=== PATIENT | male | born 1955 | race African-American/Black ===

== ENCOUNTER 2016-07-26 06:21 | Inpatient (IN) ==
[2016-07-26] MEDS ORDERED: hydrALAZINE 20 MG/1 ML VIAL IV STA (06:37)
[2016-07-26] MEDS ORDERED: LABETALOL 100 MG/20 ML VIAL IV STA (06:37)
[2016-07-26] MEDS ORDERED: ALBUTEROL 2.5 MG/3 ML NEB RESP TX STA (06:39)
[2016-07-26] MEDS ORDERED: LABETALOL 20 MG/4 ML SYRINGE IV ONE (06:42)
[2016-07-26] MEDS ORDERED: hydrALAZINE 20 MG/1 ML VIAL ONE (06:42)
[2016-07-26 06:44] LABS: Basophils # 0.1 10*3/uL (0.0-0.2); Basophils % 1.3 % (0.0-0.8); Eosinophils # 0.1 10*3/uL (0.0-0.87); Eosinophils % 1.5 % (0.00-10.9); Hematocrit 39.8 VOL% (42.0-52.0); Hemoglobin 13.5 GM/DL (14.0-18.0); Immature Granulocytes % 0.2 %; Immature Granulocytes Absolute 0.01 #; Lymphocytes # 2.4 10*3/uL (1.4-4.0); Lymphocytes % 51.6 % (21.2-54.2); Mean Corpuscular HGB Conc 33.9 GM/DL (32-36); Mean Corpuscular Hemoglobin 32 PG (27-34); Mean Platelet Volume 10.1 FL (9.6-12.0); Monocytes # 0.3 10*3/uL (0.11-0.8); Monocytes % 5.4 % (1.7-12.7); Neutrophils # 1.8 10*3/uL (1.4-7.4); Platelet Count 222 T/CUMM (130-400); Red Blood Count 4.28 MC/CUMM (3.8-5.5); Red Cell Distribution Width 12.1 % (9.3-17.3); White Blood Count 4.6 T/CUMM (4-12)
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
[2016-07-26 06:58] LABS: Albumin 3.3 G/DL (3.4-5.0); Bilirubin,Total 1.7 MG/DL (0.2-1.0); Calcium 8.2 MG/DL (8.5-10.1); Osmolality,Calculated 287.8 MOS/KG (273-304); Total Protein 6.5 G/DL (6.4-8.3)
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
[2016-07-26 08:47] LABS: Apearance,Urine CLEAR (Clear); Bilirubin,Urine Negative (Negative); Blood, Urine Negative (Negative); Glucose,Urine (UA) Negative (Negative); Ketones,Urine Negative (Negative); Mucus,Urine Occasional /LPF (Occasional); Nitrite,Urine Negative (Negative); Protein,Urine 30 MG/DL; RBC,Urine 2 /HPF (0-4); Squamous Epithelial Cell,Urine Occasional /HPF (0-10); Urine Color Yellow (Yellow); Urine Specific Gravity 1.015 (1.001-1.035); WBC,Urine 3 /HPF (0-6)
[2016-07-26 08:52] LABS: Barbiturates Screen,Urine Negative (Negative); Benzodiazepines Screen,Urine Negative (Negative); Cannabinoid Screen,Urine Positive (Negative); Opiate Screen,Urine Negative (Negative); Phencyclidine Screen,Urine Negative (Negative)
--- NOTE | 2016-07-26 09:07 | EKG Report ---
Stationary ECG Study [facility] ER Test Date: 07/26/2016 6:27:02 AM Pat Name: EBER ARREOLA Department: Room: Gender: M [employer]: : 1955 Requested by: Nikunj Villafana Order Number: [id number] Reading MD: NASRIN ECKERT Intervals [place] Rate: 117 P: 75 DC: 139 QRS: -74 QRSD: 163 T: 90 QT: 373 QTc: 443 Interpretive Statements SINUS TACHYCARDIA LEFT ATRIAL ENLARGEMENT LEFT AXIS DEVIATION LEFT BUNDLE BRANCH BLOCK Electronically Signed On 07-27-16 06:59:13 FUNERAL HOME MAKEUP ARTIST by NASRIN ECKERT [email or web address]
[2016-07-26 10:14] LABS: ABG Base Excess -0.8 MMOL/L (-2.5-2.5); ABG HCO3 23.6 MMOL/L (20-26); ABG Oxygen Saturation 90.4 % (95-100); ABG PCO2 32.1 MM HG (35-48); ABG PO2 57.4 MM HG (80-95); ABG TCO2 19.6 MMOL/L (23-27)
[2016-07-26] MEDS ORDERED: FUROSEMIDE 40 MG/4 ML VIAL IV STA (10:25)
[2016-07-26] MEDS ORDERED: FUROSEMIDE 100 MG/10 ML VIAL ONE (10:27)
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
[2016-07-26] MEDS ORDERED: ACETAMINOPHEN 325 MG TABLET PO PRN (15:32)
[2016-07-26] MEDS ORDERED: ONDANSETRON 4 MG/2 ML VIAL IV PRN (15:32)
[2016-07-26] MEDS: PANTOPRAZOLE 40 MG TABLET PO SCH (16:34)
[2016-07-26] MEDS: ASPIRIN EC 81 MG TABLET PO SCH (16:34)
[2016-07-26] MEDS: FUROSEMIDE 40 MG/4 ML VIAL IV SCH (16:34)
[2016-07-26] MEDS: MULTIVITAMIN (CENTRUM) TABLET PO SCH (16:34)
[2016-07-26] MEDS: CARVEDILOL 3.125 MG TABLET PO SCH ×2 (16:34→20:47)
[2016-07-26] MEDS: LISINOPRIL 10 MG TABLET PO SCH (16:34)
[2016-07-26] MEDS: ENOXAPARIN 40 MG/0.4 ML SYRINGE SUBCUT SCH (20:47)
--- NOTE | 2016-07-26 21:23 | ECHO Report ---
Andrea Mora Exam Date: 07/26/2016 10:49 Referring Physician: Technologist: Marilee BENNETT Age: 61 Ht (in): Wt (lb): Gender: M Exam Location: [facility] Echo Indications: SOB, Dyspnea, Cocaine abuse BP: / HR: Rhythm: Sinus Technical Quality: Good IMPRESSIONS 1. Left ventricle is dilated with global hypokinesis and ejection fraction less than 20%. There is mild concentric left ventricular hypertrophy. 2. Severely dilated left atrium. 3. Right-sided chambers are normal size. 4. Mild aortic valves sclerosis but functionally normal. 5. Mildly thickened mitral valve with moderate regurgitation. MEASUREMENTS (Male / Female) Normal Values 2D ECHO LV Diastolic Diameter PLAX 6.0 cm 4.2 - 5.9 / 3.9 - 5.3 cm LV Systolic Diameter PLAX 5.6 cm LV Fractional Shortening PLAX 7.3 % IVS Diastolic Thickness 1.3 cm 0.6 - 1.0 / 0.6 - 0.9 cm LVPW Diastolic Thickness 1.1 cm 0.6 - 1.0 / 0.6 - 0.9 cm RV Internal Dim ED PLAX 2.6 cm Aortic Root Diameter 2.6 cm LA Systolic Diameter LX 5.3 cm 3.0 - 4.0 / 2.7 - 3.8 cm DOPPLER TR Peak Velocity 337.0 cm/s TR Peak Gradient 45.4 mmHg FINDINGS Left Ventricle The left ventricle is dilated with global hypokinesis and ejection fraction of less than 20%. No specific segmental wall motion abnormalities are noted. There is some mild concentric left ventricular hypertrophy. . Right Ventricle Right ventricle is probably normal size. Right Atrium Left atrium is probably normal size. Left Atrium Severely increased left atrial diameter. Mitral Valve Mildly thickened mitral valve. Moderate mitral valve regurgitation. Aortic Valve Aortic valve sclerosis without stenosis or regurgitation. Tricuspid Valve Morphologically normal tricuspid valve. Trace to mild tricuspid valve regurgitation. Tricuspid regurgitation velocities suggest a peak right- sided pressures of 50-55 mmHg. Pulmonic Valve Morphologically normal pulmonic valve. Pericardium No pericardial effusion. Aorta Normal size aortic root and proximal ascending aorta. Jv Oconnor MD (Electronically Signed) Final Date: 26 July 2016 21:22
[2016-07-27 04:00] LABS: Calcium 8.6 MG/DL (8.5-10.1); Osmolality,Calculated 282.5 MOS/KG (273-304); Potassium 3.4 MMOL/L (3.5-5.1); Thyroid Stimulating Hormone 1.92 uIU/ml (0.358-3.74)
[2016-07-27] MEDS: MULTIVITAMIN (CENTRUM) TABLET PO SCH (08:25)
[2016-07-27] MEDS: PANTOPRAZOLE 40 MG TABLET PO SCH (08:25)
[2016-07-27] MEDS: LISINOPRIL 10 MG TABLET PO SCH (08:25)
[2016-07-27] MEDS: ASPIRIN EC 81 MG TABLET PO SCH (08:25)
[2016-07-27] MEDS: CARVEDILOL 3.125 MG TABLET PO SCH ×2 (08:25→21:13)
[2016-07-27] MEDS: FUROSEMIDE 40 MG/4 ML VIAL IV SCH (08:25)
--- NOTE | 2016-07-27 15:41 | Hospitalist Progress Note ---
Assessment and Plan - Time spent with patient Time spent with patient: Less than 30 minutes (1) SOB (shortness of breath) Status: Resolved Assessment and plan: Acute shortness of breath due to mild acute CHF exacerbation due to medical noncompliance. Admit, start Lasix, monitor O2 sats. Further recommendations per Dr. Cano 07/27/2016 shortness of breath much improved. Change Lasix from IV to p.o. and reduce amount. Patient should be good to go for discharge in the morning. Current Visit: No (2) Abnormal EKG Status: Chronic Assessment and plan: We will compare EKG to his previous one done in May. If any changes, may need to consult Dr. Otero since she has seen him before. Recommendations to follow per Dr. Cano Current Visit: No (3) Acute CHF (congestive heart failure) Status: Acute Assessment and plan: Acute congestive heart failure due to medical noncompliance and drug use. Patient received an echo in the ED with results pending. His last echo was EF of 15-20%. Patient will be given Lasix, blood pressure medicines restarted and further recommendations per Dr. Cano. 07/27/2016 echo results show left ventricle dilated with global hypokinesis and ejection fraction of less than 20% with mild concentric left ventricular hypertrophy, severely dilated left atrium, normal right side, mild aortic valve sclerosis, thickened mitral valve with moderate regurg. Discussed physical results with patient and emphasized medicine compliance and drug and alcohol cessation. Current Visit: No (4) Essential hypertension Status: Acute Assessment and plan: Restart home meds previously given and not taken. Will adjust accordingly. Further recommendations per Dr. Cano. 07/27/2016 blood pressure under good control with current meds given. Current Visit: Yes (5) Medical non-compliance Status: Acute Assessment and plan: Patient underwent extensive lifestyle change talks by Dr. Araiza and Dr. Otero previous admission. Will continue to do this on this admission. 07/27/2016 I had discussion with patient along with Dr. Cano emphasizing his medical compliance and condition of his heart. Highly recommended him discontinuing his cocaine, alcohol, smoking habits. Patient does verbalize understanding and he understands that it is up to him now. Current Visit: Yes (6) Cocaine abuse Status: Acute Assessment and plan: Patient will undergo lifestyle change talks as he did his previous admission. 07/27/2016 medical compliance and cocaine cessation were discussed with patient. Current Visit: Yes Hospitalist: Subjective Interval history: Patient feels much better today. Shortness of breath has improved and he is ambulating in the room. He states he is urinating quite a bit. He voiced that he does not want to go back to rehab that he wants to try to stop smoking cigarettes and weed. He can stop the cocaine and alcohol on his own. He agrees that he needs to take his medicines as instructed. Exam - Constitutional Vitals: Period Temp Pulse Resp BP Sys/Syed Pulse Ox Last 24 Hr 97.5 F-98.0 F 61-83 16-20 115-131/73-88 98-100 Exam: 61-year-old -Indonesian male, no acute distress, alert and oriented Chest clear CV regular rate and rhythm Abdomen soft and nontender Extremities with no edema Results - Labs CBC & BMP: 07/26/16 06:33 07/27/16 02:55 Lab Results: I have reviewed the past 24 hour labs
[2016-07-27] MEDS: POTASSIUM CHLORIDE 20 MEQ TABLET PO SCH ×2 (15:59→21:13)
[2016-07-27] MEDS: FUROSEMIDE 80 MG TABLET PO SCH (15:59)
--- NOTE | 2016-07-27 16:01 | Physician Query Form ---
CLICK EDIT DOCUMENT TO SELECT QUERY ANSWER --> OK --> SIGN Mary Catalan RN Clinical All Source Analyst W) [phone] (f) [phone] [email or web address] PROVIDERS: Make your selection(s) from the choices in EACH section by typing an "x" and enter comments in the comment section. Please use your independent medical judgment in providing your response. This request does not imply that any particular answer is desired or expected. CLINICAL INDICATORS: (Providers should not edit this section) Based on documentation of "acute CHF exacerbation", [id number], Echo showed EF of 20%, treated with IV Lasix. Please provide further specificity regarding CHF. TYPE: ( ) Systolic ( ) Diastolic (x ) Combined Systolic/Diastolic ( ) Other, please specify: ( ) Clinically unable to determine ( ) The patient does NOT have CHF COMMENTS: Use of terms such as suspected, likely, or probable (associated with a specific diagnosis that is being evaluated, monitored, or treated as if it exists) are acceptable and can be restated in the discharge summary if not ruled out. [facility]
[2016-07-27] MEDS: ENOXAPARIN 40 MG/0.4 ML SYRINGE SUBCUT SCH (21:18)
[2016-07-28] MEDS ORDERED: LORazepam 2 MG/1 ML VIAL ONE ×3 (00:35→01:06)
[2016-07-28] MEDS: LORazepam 2 MG/1 ML VIAL IV PRN ×4 (00:38→01:18)
[2016-07-28 00:46] LABS: ABG Base Excess -13.2 MMOL/L (-2.5-2.5); ABG HCO3 14.1 MMOL/L (20-26); ABG Oxygen Saturation 72.2 % (95-100); ABG TCO2 24.4 MMOL/L (23-27)
[2016-07-28 00:51] LABS: ABG PH 6.953 (7.35-7.45)
[2016-07-28] MEDS ORDERED: LORazepam 2 MG/1 ML VIAL IM ONE (01:05)
[2016-07-28] MEDS ORDERED: ALBUTEROL 2.5 MG/3 ML NEB RESP TX ONE (01:08)
[2016-07-28] MEDS ORDERED: PHENYTOIN INJ 1,000 MG in SODIUM CHLORIDE 0.9% 100 ML IV ONE (01:11)
[2016-07-28] MEDS ORDERED: SODIUM BICARBONATE 50 MEQ/50 ML SYRINGE IV ONE ×2 (01:14→01:36)
[2016-07-28] MEDS: SODIUM CHLORIDE 0.9% 1,000 ML IV SCH ×4 (01:15→18:31)
[2016-07-28] MEDS ORDERED: ETOMIDATE 20 MG/10 ML VIAL IV ONE ×2 (01:20→01:36)
[2016-07-28] MEDS ORDERED: SUCCINYLCHOLINE 200 MG/10 ML VIAL ONE (01:21)
[2016-07-28] MEDS ORDERED: PROPOFOL 1,000 MG/100 ML BOTTLE IV ONE (01:24)
[2016-07-28] MEDS: PROPOFOL 1,000 MG/100 ML BOTTLE IV SCH ×2 (01:30→23:45)
[2016-07-28] MEDS ORDERED: SUCCINYLCHOLINE 200 MG/10 ML VIAL IV ONE (01:36)
[2016-07-28] MEDS ORDERED: LORazepam 2 MG/1 ML VIAL IV ONE (01:48)
--- NOTE | 2016-07-28 01:52 | Event Note ---
Team alert was called by patient's nurse as she noted patient with altered mental status and shaking in bed for less than a minute. Patient was lethargic but nonconversant his pants appears wet at the groin area. Blood pressure 120s over 70s, heart rate low 90s, respiratory rate about 20, SPO2 low 80's. She was placed on oxygen therapy and was given 2 mg Ativan IV stat after he had another witnessed for about 30 seconds tonic-clonic. Stat labs were ordered including ABG and BMP and EKG and chest x-ray and patient was transferred to the medical ICU. O/E patient disoriented, lung with expiratory coarse breath sound, Heart RRR, abdomen soft nondistended, extremity no edema or cyanosis, neck no JVD, pants wet w urine at ester area, no clear tongue bite. Shortly after arrival and felt to ICU patient starting to have another seizure and ABG results came back with a pH of 6.9 and CO2 of about 112. Patient was intubated by ER physician and was given Ativan and fosphenytoin accordingly and was started on mechanical ventilation. ABG and chest x-ray and other labs to follow.
[2016-07-28] MEDS: POTASSIUM CHLORIDE 20 MEQ TABLET PO SCH (03:10)
[2016-07-28 03:21] LABS: Apearance,Urine Slightly Hazy (Clear); Bilirubin,Urine Negative (Negative); Blood, Urine Moderate mg/dL (Negative); Glucose,Urine (UA) Negative (Negative); Hyaline Casts,Urine 5 /LPF (0-3); Ketones,Urine Negative (Negative); Mucus,Urine Occasional /LPF (Occasional); Nitrite,Urine Negative (Negative); Protein,Urine 100 MG/DL; RBC,Urine 4 /HPF (0-4); Squamous Epithelial Cell,Urine Occasional /HPF (0-10); Urine Color Yellow (Yellow); Urine Urobilinogen < 2.0 EU/DL (0.2-1.0); WBC,Urine 3 /HPF (0-6)
[2016-07-28 03:34] LABS: Calcium 9.3 MG/DL (8.5-10.1); Osmolality,Calculated 286.5 MOS/KG (273-304); Potassium 4.2 MMOL/L (3.5-5.1)
[2016-07-28 03:40] LABS: Troponin I Only 0.176 NG/ML (0.00-0.045)
[2016-07-28 04:27] LABS: ABG Base Excess 0.9 MMOL/L (-2.5-2.5); ABG Oxygen Saturation 90.8 % (95-100); ABG PCO2 46.8 MM HG (35-48); ABG PH 7.367 (7.35-7.45); ABG PO2 65.3 MM HG (80-95); ABG TCO2 23.2 MMOL/L (23-27)
[2016-07-28 05:30] LABS: Calcium 8.5 MG/DL (8.5-10.1); Magnesium 2.3 MG/DL (1.8-2.4); Osmolality,Calculated 286.1 MOS/KG (273-304); Potassium 4.9 MMOL/L (3.5-5.1)
--- NOTE | 2016-07-28 06:41 | EKG Report ---
Stationary ECG Study [facility] Test Date: 07/28/2016 12:39:13 AM Pat Name: EBER ARREOLA Department: Room: 123 Gender: M Automatic St[employer]: Rashid arnold ss : 1955 Requested by: Arcenio Cano Order Number: [id number] Reading MD: DINO DE GUZMAN Intervals [place] Rate: 93 P: 75 MI: 160 QRS: -79 QRSD: 170 T: 93 QT: 397 QTc: 448 Interpretive Statements SINUS RHYTHM RIGHT ATRIAL ENLARGEMENT LEFT ATRIAL ENLARGEMENT ABNORMAL LEFT AXIS DEVIATION LEFT BUNDLE BRANCH BLOCK Electronically Signed On 07-28-16 17:37:07 [employer]AL [employer] SCIENTIST by DINO DE GUZMAN [id number]
--- NOTE | 2016-07-28 06:56 | CT Report ---
History: Seizure. Altered mental status Date: 07/28/2016 Study: CT head without contrast Comparison exam: No previous head CT available The study was also reviewed by [facility]. The CT exam was performed using one or more of the following dose reduction techniques: Automated exposure control and adjustment of the mA and/or kV according to patient size. Transaxial CT sections were obtained through the head without IV contrast. Total DLP measures 1012.1 mGy*cm. The ventricles are midline in position without evidence of hydrocephalus. There is mild cerebral atrophy. There is no mass or parenchymal hemorrhage. There is a wedge-shaped area of chronic infarction measuring at least 15 mm in the right parieto-occipital border zone area. There is no gross CT evidence of acute cortical stroke. There is a small amount of ill-defined low density in the periventricular white matter without mass effect compatible with changes of small vessel disease. There is no extra-axial hematoma. There is no acute abnormality of the calvarium. The partially visualized paranasal sinuses and mastoid air cells are clear. Impression: No acute intracranial process. Chronic ischemia right parieto-occipital area. Mild periventricular small vessel disease PROCEDURE INTERPRETED AT [facility] DEPARTMENT OF RADIOLOGY Final Report Signed by: Dr. Joelle Weldon
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
[2016-07-28] MEDS ORDERED: SODIUM CHLORIDE 0.9% 250 ML IV ONE (09:08)
[2016-07-28] MEDS: ASPIRIN EC 81 MG TABLET PO SCH (09:19)
[2016-07-28] MEDS: MULTIVITAMIN (CENTRUM) TABLET PO SCH (09:19)
[2016-07-28] MEDS: CARVEDILOL 3.125 MG TABLET PO SCH ×2 (09:20→20:41)
[2016-07-28] MEDS: LISINOPRIL 10 MG TABLET PO SCH (09:20)
[2016-07-28] MEDS: FUROSEMIDE 80 MG TABLET PO SCH (09:42)
[2016-07-28] MEDS: PANTOPRAZOLE 40 MG VIAL IV SCH (11:08)
[2016-07-28] MEDS ORDERED: SODIUM CHLORIDE 0.9% 500 ML IV ONE (12:24)
[2016-07-28] MEDS ORDERED: PHENYTOIN 100 MG/2 ML VIAL IV SCH (12:30)
[2016-07-28] MEDS: PHENYLEPHRINE DRIP 40 MG/250 ML PREMIX IV SCH ×2 (12:30→20:57)
[2016-07-28] MEDS: PANTOPRAZOLE 40 MG TABLET PO SCH (14:46)
--- NOTE | 2016-07-28 16:17 | Hospitalist Progress Note ---
Assessment and Plan - Time spent with patient Time spent with patient: Less than 30 minutes (1) SOB (shortness of breath) Status: Resolved Assessment and plan: Acute shortness of breath due to mild acute CHF exacerbation due to medical noncompliance. Admit, start Lasix, monitor O2 sats. Further recommendations per Dr. Cano 07/27/2016 shortness of breath much improved. Change Lasix from IV to p.o. and reduce amount. Patient should be good to go for discharge in the morning. 07/28/2016 patient is now sedated on the vent Current Visit: No (2) Abnormal EKG Status: Chronic Assessment and plan: We will compare EKG to his previous one done in May. If any changes, may need to consult Dr. Otero since she has seen him before. Recommendations to follow per Dr. Cano Current Visit: No (3) Acute CHF (congestive heart failure) Status: Acute Assessment and plan: Acute congestive heart failure due to medical noncompliance and drug use. Patient received an echo in the ED with results pending. His last echo was EF of 15-20%. Patient will be given Lasix, blood pressure medicines restarted and further recommendations per Dr. Cano. 07/27/2016 echo results show left ventricle dilated with global hypokinesis and ejection fraction of less than 20% with mild concentric left ventricular hypertrophy, severely dilated left atrium, normal right side, mild aortic valve sclerosis, thickened mitral valve with moderate regurg. Discussed physical results with patient and emphasized medicine compliance and drug and alcohol cessation. Current Visit: No (4) Essential hypertension Status: Acute Assessment and plan: Restart home meds previously given and not taken. Will adjust accordingly. Further recommendations per Dr. Cano. 07/27/2016 blood pressure under good control with current meds given. 07/28/2016 patient is now hypotensive on the vent. He is on karley-titrated for systolic less than 90 Current Visit: Yes (5) Medical non-compliance Status: Acute Assessment and plan: Patient underwent extensive lifestyle change talks by Dr. Araiza and Dr. Otero previous admission. Will continue to do this on this admission. 07/27/2016 I had discussion with patient along with Dr. Cano emphasizing his medical compliance and condition of his heart. Highly recommended him discontinuing his cocaine, alcohol, smoking habits. Patient does verbalize understanding and he understands that it is up to him now. Current Visit: Yes (6) Cocaine abuse Status: Acute Assessment and plan: Patient will undergo lifestyle change talks as he did his previous admission. 07/27/2016 medical compliance and cocaine cessation were discussed with patient. Current Visit: Yes Hospitalist: Subjective Interval history: Event notes reviewed from last night. Patient had seizure yesterday evening and transferred to ICU. He was placed on the ventilator and Dilantin and to prevent started. Patient is sedated on the vent now. He is having periodic twitching. Patient is afebrile with low urinary output and elevated creatinine to 2.3. His lactic acid is up to 4.3 with a bump in his troponin of 0.176. His ammonia is high at 90. Exam - Constitutional Vitals: Period Temp Pulse Resp BP Sys/Syed Pulse Ox Last 24 Hr 96.9 F-100.1 F 51-117 12-26 67-138/50-98 85-100 Exam: 61-year-old -[place] male, sedated on the vent Chest is clear CV regular rate and rhythm Abdomen soft Extremities no edema Results - Labs CBC & BMP: 07/26/16 06:33 07/28/16 04:25 Lab Results: I have reviewed the past 24 hour labs
[2016-07-28] MEDS: ENOXAPARIN 40 MG/0.4 ML SYRINGE SUBCUT SCH (20:50)
[2016-07-29] MEDS: SODIUM CHLORIDE 0.9% 1,000 ML IV SCH ×2 (04:30→18:30)
[2016-07-29] MEDS: LORazepam 2 MG/1 ML VIAL IV PRN ×4 (06:12→15:12)
[2016-07-29] MEDS: PROPOFOL 1,000 MG/100 ML BOTTLE IV SCH ×2 (07:46→20:00)
[2016-07-29] MEDS: PHENYLEPHRINE DRIP 40 MG/250 ML PREMIX IV SCH ×2 (07:47→16:23)
[2016-07-29 08:10] LABS: Basophils # 0.1 10*3/uL (0.0-0.2); Basophils % 0.6 % (0.0-0.8); Hematocrit 40.9 VOL% (42.0-52.0); Hemoglobin 13.2 GM/DL (14.0-18.0); Immature Granulocytes % 0.4 %; Immature Granulocytes Absolute 0.03 #; Lymphocytes # 1.7 10*3/uL (1.4-4.0); Lymphocytes % 20.9 % (21.2-54.2); Mean Corpuscular HGB Conc 32.3 GM/DL (32-36); Mean Corpuscular Hemoglobin 31 PG (27-34); Mean Platelet Volume 10.2 FL (9.6-12.0); Monocytes # 0.9 10*3/uL (0.11-0.8); Monocytes % 11.3 % (1.7-12.7); Neutrophils # 5.4 10*3/uL (1.4-7.4); Neutrophils % 66.8 % (38.7-73.9); Platelet Count 208 T/CUMM (130-400); Red Blood Count 4.26 MC/CUMM (3.8-5.5); White Blood Count 8.1 T/CUMM (4-12)
[2016-07-29 08:29] LABS: ABG Base Excess -1.4 MMOL/L (-2.5-2.5); ABG HCO3 23.3 MMOL/L (20-26); ABG Oxygen Saturation 99.7 % (95-100); ABG PCO2 31.8 MM HG (35-48); ABG PH 7.444 (7.35-7.45); ABG TCO2 18.9 MMOL/L (23-27); Pt O2 Delivery Device Ventilator
[2016-07-29 08:31] LABS: Band Neutrophils 20 % (0-10); Hypochromasia 1+; Lymphocytes 19 % (20-55); Platelet Estimate Adequate; Segmented Neutrophils 52 % (50-85); Total Cells Counted 100
[2016-07-29 08:48] LABS: Albumin 2.7 G/DL (3.4-5.0); Bilirubin,Total 2.4 MG/DL (0.2-1.0); Calcium 7.9 MG/DL (8.5-10.1); Osmolality,Calculated 294.4 MOS/KG (273-304); Potassium 4.2 MMOL/L (3.5-5.1)
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
[2016-07-29] MEDS: PANTOPRAZOLE 40 MG VIAL IV SCH (09:07)
[2016-07-29] MEDS: ASPIRIN EC 81 MG TABLET PO SCH (09:07)
[2016-07-29] MEDS: MULTIVITAMIN (CENTRUM) TABLET PO SCH (09:07)
[2016-07-29] MEDS: CARVEDILOL 3.125 MG TABLET PO SCH ×2 (09:08→21:04)
[2016-07-29] MEDS: LISINOPRIL 10 MG TABLET PO SCH (09:08)
--- NOTE | 2016-07-29 09:08 | Neurology Progress Note ---
Neurology - PN : Subjective Interval history: Patient seems to be doing about the same. No more seizures reported. He is on vent unresponsive. Exam (Progress Note) - Constitutional Vitals: Period Temp Pulse Resp BP Sys/Syed Pulse Ox Last 24 Hr 97.6 F-99.8 F 72-107 12-23 68-133/51-93 98-100 Exam: GENERAL: Patient is in no acute distress. NECK: Neck is supple. There is no JVD. No carotid bruits present. No thyroid masses. CVS: First and second heart sounds are normal. There is no S3 present. Regular rate and rhythm. RESPIRATORY: Lungs are clear to auscultation without any rales or rhonchi. ABDOMEN: Soft and non-tender. Bowel sounds are present. There is no hepatosplenomegaly. EXT: There is no palpable edema. Peripheral pulses are present. Skin: No rashes Central Nervous system: General: On vent Speech: Dated Comprehension: On vent Facial expressions: Normal Cranial Nerves: Pupils are sluggish but reactive. Doll's head I rooms are positive. No facial asymmetry is seen Motor: Bulk and Tone is normal. Strength cannot be assessed Sensory: Cannot be assessed Reflexes: 1+ and symmetrical Cerebellar function: Cannot be assessed Toes: Equivocal Gait: Cannot be assessed Results - Labs CBC & BMP: 07/29/16 07:57 07/29/16 07:57 Assessment and Plan (1) New onset seizure Status: Acute Assessment and plan: Continue Keppra for now Continue supportive management Current Visit: Yes
--- NOTE | 2016-07-29 09:39 | Hospitalist Progress Note ---
Assessment and Plan - Time spent with patient Time spent with patient: Less than 30 minutes (1) SOB (shortness of breath) Status: Resolved Assessment and plan: Acute shortness of breath due to mild acute CHF exacerbation due to medical noncompliance. Admit, start Lasix, monitor O2 sats. Further recommendations per Dr. Cano 07/27/2016 shortness of breath much improved. Change Lasix from IV to p.o. and reduce amount. Patient should be good to go for discharge in the morning. 07/28/2016 patient is now sedated on the vent 07/29/2016 patient is still sedated on the vent Current Visit: No (2) Abnormal EKG Status: Chronic Assessment and plan: We will compare EKG to his previous one done in May. If any changes, may need to consult Dr. Otero since she has seen him before. Recommendations to follow per Dr. Cano Current Visit: No (3) Acute CHF (congestive heart failure) Status: Acute Assessment and plan: Acute congestive heart failure due to medical noncompliance and drug use. Patient received an echo in the ED with results pending. His last echo was EF of 15-20%. Patient will be given Lasix, blood pressure medicines restarted and further recommendations per Dr. Cano. 07/27/2016 echo results show left ventricle dilated with global hypokinesis and ejection fraction of less than 20% with mild concentric left ventricular hypertrophy, severely dilated left atrium, normal right side, mild aortic valve sclerosis, thickened mitral valve with moderate regurg. Discussed physical results with patient and emphasized medicine compliance and drug and alcohol cessation. Current Visit: No (4) Essential hypertension Status: Acute Assessment and plan: Restart home meds previously given and not taken. Will adjust accordingly. Further recommendations per Dr. Cano. 07/27/2016 blood pressure under good control with current meds given. 07/28/2016 patient is now hypotensive on the vent. He is on karley-titrated for systolic less than 90 07/29/2016 patient is continued to be hypotensive requiring karley-titration on the vent Current Visit: Yes (5) Medical non-compliance Status: Acute Assessment and plan: Patient underwent extensive lifestyle change talks by Dr. Araiza and Dr. Otero previous admission. Will continue to do this on this admission. 07/27/2016 I had discussion with patient along with Dr. Cano emphasizing his medical compliance and condition of his heart. Highly recommended him discontinuing his cocaine, alcohol, smoking habits. Patient does verbalize understanding and he understands that it is up to him now. Current Visit: Yes (6) Cocaine abuse Status: Acute Assessment and plan: Patient will undergo lifestyle change talks as he did his previous admission. 07/27/2016 medical compliance and cocaine cessation were discussed with patient. Current Visit: Yes (7) Acute hypernatremia Status: Acute Assessment and plan: Switch patient's IV fluids to half-normal saline. Current Visit: Yes Hospitalist: Subjective Interval history: Patient sedated on the vent will only respond to deep pain. Patient is running a low-grade fever, blood pressure requiring karley-, urine output is low with creatinine down to 1.6. He is hyernatremic today. He has been seen by Dr. George from neurology who recommends stopping the Dilantin and continuing the Keppra. An EEG has been ordered and is pending. Exam - Constitutional Vitals: Period Temp Pulse Resp BP Sys/Syed Pulse Ox Last 24 Hr 97.6 F-99.8 F 72-107 12-23 68-133/51-93 98-100 Exam: 61-year-old -[place] male, sedated on the vent Chest with few rhonchi at the bases CV regular rate and rhythm Abdomen soft Extremities no edema Results - Labs CBC & BMP: 07/29/16 07:57 07/29/16 07:57 Lab Results: I have reviewed the past 24 hour labs
[2016-07-29] MEDS: SODIUM CHLORIDE 0.45% 1,000 ML IV SCH ×2 (11:12→19:30)
[2016-07-29 17:05] LABS: Pt O2 Delivery Device Ventilator
[2016-07-29 17:11] LABS: ABG Base Excess -1.8 MMOL/L (-2.5-2.5); ABG HCO3 22.8 MMOL/L (20-26); ABG Oxygen Saturation 91.6 % (95-100); ABG PCO2 37.2 MM HG (35-48); ABG PH 7.393 (7.35-7.45); ABG PO2 63.5 MM HG (80-95); ABG TCO2 19.8 MMOL/L (23-27)
[2016-07-29] MEDS: ENOXAPARIN 40 MG/0.4 ML SYRINGE SUBCUT SCH (21:17)
[2016-07-30] MEDS: LORazepam 2 MG/1 ML VIAL IV PRN ×2 (00:03→04:34)
[2016-07-30] MEDS: PHENYLEPHRINE DRIP 40 MG/250 ML PREMIX IV SCH ×2 (01:55→20:55)
[2016-07-30 04:18] LABS: ABG Base Excess -3.3 MMOL/L (-2.5-2.5); ABG HCO3 20.4 MMOL/L (20-26); ABG Oxygen Saturation 98.9 % (95-100); ABG PCO2 32.7 MM HG (35-48); ABG PH 7.412 (7.35-7.45); ABG PO2 138.1 MM HG (80-95); ABG TCO2 21.4 MMOL/L (23-27); Pt O2 Delivery Device Ventilator
[2016-07-30] MEDS: SODIUM CHLORIDE 0.45% 1,000 ML IV SCH ×3 (04:35→20:56)
[2016-07-30] MEDS: PROPOFOL 1,000 MG/100 ML BOTTLE IV SCH (06:36)
[2016-07-30 07:16] LABS: Basophils % 0.5 % (0.0-0.8); Eosinophils % 0.1 % (0.00-10.9); Hematocrit 40.2 VOL% (42.0-52.0); Hemoglobin 13.1 GM/DL (14.0-18.0); Immature Granulocytes % 0.8 %; Immature Granulocytes Absolute 0.06 #; Lymphocytes # 1.6 10*3/uL (1.4-4.0); Lymphocytes % 20.8 % (21.2-54.2); Mean Corpuscular HGB Conc 32.6 GM/DL (32-36); Mean Corpuscular Hemoglobin 32 PG (27-34); Mean Corpuscular Volume 97.6 FL (87-102); Mean Platelet Volume 10.4 FL (9.6-12.0); Monocytes # 0.8 10*3/uL (0.11-0.8); Monocytes % 9.8 % (1.7-12.7); Neutrophils # 5.2 10*3/uL (1.4-7.4); Platelet Count 204 T/CUMM (130-400); Red Blood Count 4.12 MC/CUMM (3.8-5.5); Red Cell Distribution Width 12.8 % (9.3-17.3); White Blood Count 7.7 T/CUMM (4-12)
[2016-07-30 07:37] LABS: Band Neutrophils 2 % (0-10); Lymphocytes 17 % (20-55); Metamyelocytes 1 %; Segmented Neutrophils 72 % (50-85); Total Cells Counted 100
[2016-07-30 07:38] LABS: Anisocytosis Slight; Macrocytosis Slight; Platelet Estimate Normal
[2016-07-30 07:47] LABS: Calcium 8.1 MG/DL (8.5-10.1); Magnesium 1.8 MG/DL (1.8-2.4); Potassium 4.2 MMOL/L (3.5-5.1)
[2016-07-30] MEDS ORDERED: LORazepam 2 MG/1 ML VIAL IV PRN (07:48)
[2016-07-30] MEDS: PANTOPRAZOLE 40 MG VIAL IV SCH (08:15)
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
[2016-07-30] MEDS: ASPIRIN EC 81 MG TABLET PO SCH (09:43)
[2016-07-30] MEDS: MULTIVITAMIN (CENTRUM) TABLET PO SCH (11:07)
[2016-07-30] MEDS: CARVEDILOL 3.125 MG TABLET PO SCH ×2 (11:08→20:57)
[2016-07-30] MEDS: LISINOPRIL 10 MG TABLET PO SCH (11:08)
--- NOTE | 2016-07-30 12:17 | Hospitalist Progress Note ---
Assessment and Plan - Time spent with patient Time spent with patient: Less than 30 minutes (1) SOB (shortness of breath) Status: Resolved Assessment and plan: Acute shortness of breath due to mild acute CHF exacerbation due to medical noncompliance. Admit, start Lasix, monitor O2 sats. Further recommendations per Dr. Cano 07/27/2016 shortness of breath much improved. Change Lasix from IV to p.o. and reduce amount. Patient should be good to go for discharge in the morning. 07/28/2016 patient is now sedated on the vent 07/29/2016 patient is still sedated on the vent Current Visit: No (2) Abnormal EKG Status: Chronic Assessment and plan: We will compare EKG to his previous one done in May. If any changes, may need to consult Dr. Otero since she has seen him before. Recommendations to follow per Dr. Cano Current Visit: No (3) Acute CHF (congestive heart failure) Status: Acute Assessment and plan: Acute congestive heart failure due to medical noncompliance and drug use. Patient received an echo in the ED with results pending. His last echo was EF of 15-20%. Patient will be given Lasix, blood pressure medicines restarted and further recommendations per Dr. Cano. 07/27/2016 echo results show left ventricle dilated with global hypokinesis and ejection fraction of less than 20% with mild concentric left ventricular hypertrophy, severely dilated left atrium, normal right side, mild aortic valve sclerosis, thickened mitral valve with moderate regurg. Discussed physical results with patient and emphasized medicine compliance and drug and alcohol cessation. Current Visit: No (4) Essential hypertension Status: Acute Assessment and plan: Restart home meds previously given and not taken. Will adjust accordingly. Further recommendations per Dr. Cano. 07/27/2016 blood pressure under good control with current meds given. 07/28/2016 patient is now hypotensive on the vent. He is on karley-titrated for systolic less than 90 07/29/2016 patient is continued to be hypotensive requiring karley-titration on the vent 07/30/16 pt on vent and karley is being weaned. Current Visit: Yes (5) Medical non-compliance Status: Acute Assessment and plan: Patient underwent extensive lifestyle change talks by Dr. Araiza and Dr. Otero previous admission. Will continue to do this on this admission. 07/27/2016 I had discussion with patient along with Dr. Cano emphasizing his medical compliance and condition of his heart. Highly recommended him discontinuing his cocaine, alcohol, smoking habits. Patient does verbalize understanding and he understands that it is up to him now. Current Visit: Yes (6) Cocaine abuse Status: Acute Assessment and plan: Patient will undergo lifestyle change talks as he did his previous admission. 07/27/2016 medical compliance and cocaine cessation were discussed with patient. Current Visit: Yes (7) Acute hypernatremia Status: Acute Assessment and plan: Switch patient's IV fluids to half-normal saline. Current Visit: Yes Hospitalist: Subjective Interval history: pt going through cpap trials and doing well. he is not waking up though and only responding to pain. his labs look better w creatinine normal now. Exam - Constitutional Vitals: Period Temp Pulse Resp BP Sys/Syed Pulse Ox Last 24 Hr 98.9 F-99.5 F 74-97 6-28 76-177/55-159 94-100 Exam: on vent chest clear cv rrr abd soft ext no edema Results - Labs CBC & BMP: 07/30/16 06:53 07/30/16 06:53 Lab Results: I have reviewed the past 24 hour labs - Diagnostic Findings Procedure: Chest x-ray: report reviewed by me (ok)
[2016-07-30] MEDS: ENOXAPARIN 40 MG/0.4 ML SYRINGE SUBCUT SCH (21:00)
[2016-07-31 04:07] LABS: ABG Base Excess -3.1 MMOL/L (-2.5-2.5); ABG HCO3 19.4 MMOL/L (20-26); ABG Oxygen Saturation 99.2 % (95-100); ABG PCO2 28.2 MM HG (35-48); ABG PH 7.455 (7.35-7.45); ABG PO2 158.3 MM HG (80-95); ABG TCO2 20.2 MMOL/L (23-27); Pt O2 Delivery Device Ventilator
[2016-07-31] MEDS: SODIUM CHLORIDE 0.45% 1,000 ML IV SCH ×3 (06:14→19:00)
[2016-07-31 06:18] LABS: Basophils % 0.4 % (0.0-0.8); Eosinophils % 0.1 % (0.00-10.9); Hematocrit 33.9 VOL% (42.0-52.0); Hemoglobin 11.4 GM/DL (14.0-18.0); Immature Granulocytes % 0.7 %; Immature Granulocytes Absolute 0.06 #; Lymphocytes # 1.2 10*3/uL (1.4-4.0); Lymphocytes % 14.3 % (21.2-54.2); Mean Corpuscular HGB Conc 33.6 GM/DL (32-36); Mean Corpuscular Hemoglobin 32 PG (27-34); Mean Corpuscular Volume 94.4 FL (87-102); Mean Platelet Volume 10.5 FL (9.6-12.0); Monocytes # 0.8 10*3/uL (0.11-0.8); Monocytes % 10.1 % (1.7-12.7); Neutrophils % 74.4 % (38.7-73.9); Platelet Count 198 T/CUMM (130-400); Red Blood Count 3.59 MC/CUMM (3.8-5.5); Red Cell Distribution Width 12.5 % (9.3-17.3)
[2016-07-31 06:48] LABS: Calcium 7.7 MG/DL (8.5-10.1); Magnesium 1.7 MG/DL (1.8-2.4); Potassium 3.8 MMOL/L (3.5-5.1)
[2016-07-31 06:55] LABS: Platelet Estimate Normal
[2016-07-31] MEDS: PANTOPRAZOLE 40 MG VIAL IV SCH (08:46)
--- NOTE | 2016-07-31 09:54 | Hospitalist Progress Note ---
Assessment and Plan - Time spent with patient Time spent with patient: Less than 30 minutes (1) SOB (shortness of breath) Status: Resolved Assessment and plan: Acute shortness of breath due to mild acute CHF exacerbation due to medical noncompliance. Admit, start Lasix, monitor O2 sats. Further recommendations per Dr. Cano 07/27/2016 shortness of breath much improved. Change Lasix from IV to p.o. and reduce amount. Patient should be good to go for discharge in the morning. 07/28/2016 patient is now sedated on the vent 07/29/2016 patient is still sedated on the vent 07/31/2016 patient is awake today so hope to get extubated. He does have a lot of secretions requiring suctioning. He did run a low-grade fever yesterday but is normal today. His hematocrit stable, creatinine normal, his mag is a little low at 1.7. We will continue to watch his vital signs as he comes off the vent. Reinstitute p.o. meds and transition from IV once he is extubated and tolerating liquids. Discussed with Dr. Cano Current Visit: No (2) Abnormal EKG Status: Chronic Assessment and plan: We will compare EKG to his previous one done in May. If any changes, may need to consult Dr. Otero since she has seen him before. Recommendations to follow per Dr. Cano Current Visit: No (3) Acute CHF (congestive heart failure) Status: Acute Assessment and plan: Acute congestive heart failure due to medical noncompliance and drug use. Patient received an echo in the ED with results pending. His last echo was EF of 15-20%. Patient will be given Lasix, blood pressure medicines restarted and further recommendations per Dr. Cano. 07/27/2016 echo results show left ventricle dilated with global hypokinesis and ejection fraction of less than 20% with mild concentric left ventricular hypertrophy, severely dilated left atrium, normal right side, mild aortic valve sclerosis, thickened mitral valve with moderate regurg. Discussed physical results with patient and emphasized medicine compliance and drug and alcohol cessation. Current Visit: No (4) Essential hypertension Status: Acute Assessment and plan: Restart home meds previously given and not taken. Will adjust accordingly. Further recommendations per Dr. Cano. 07/27/2016 blood pressure under good control with current meds given. 07/28/2016 patient is now hypotensive on the vent. He is on karley-titrated for systolic less than 90 07/29/2016 patient is continued to be hypotensive requiring karley-titration on the vent 07/30/16 pt on vent and karley is being weaned. Current Visit: Yes (5) Medical non-compliance Status: Acute Assessment and plan: Patient underwent extensive lifestyle change talks by Dr. Araiza and Dr. Otero previous admission. Will continue to do this on this admission. 07/27/2016 I had discussion with patient along with Dr. Cano emphasizing his medical compliance and condition of his heart. Highly recommended him discontinuing his cocaine, alcohol, smoking habits. Patient does verbalize understanding and he understands that it is up to him now. Current Visit: Yes (6) Cocaine abuse Status: Acute Assessment and plan: Patient will undergo lifestyle change talks as he did his previous admission. 07/27/2016 medical compliance and cocaine cessation were discussed with patient. Current Visit: Yes (7) Acute hypernatremia Status: Acute Assessment and plan: Switch patient's IV fluids to half-normal saline. Current Visit: Yes Hospitalist: Subjective Interval history: Patient is also to prevent amnio infusion. He was put back on the ventilator last night to rest. He is now on CPAP trials and doing well. He will awaken and make eye contact and not his head yes or no to simple questions. Exam - Constitutional Vitals: Period Temp Pulse Resp BP Sys/Syed Pulse Ox Last 24 Hr 97.3 F-100.2 F 72-112 6-30 80-139/58-104 93-100 Exam: 61-year-old -[place] male, awake on CPAP trials He ran 100.2 fever yesterday, no fevers this morning, vital signs stable Chest is clear CV regular rate and rhythm Abdomen is soft Extremities no edema Results - Labs CBC & BMP: 07/31/16 06:03 07/31/16 06:03 Lab Results: I have reviewed the past 24 hour labs
[2016-07-31] MEDS: LISINOPRIL 10 MG TABLET PO SCH (10:20)
[2016-07-31] MEDS: CARVEDILOL 3.125 MG TABLET PO SCH ×2 (10:20→21:39)
[2016-07-31] MEDS: ASPIRIN EC 81 MG TABLET PO SCH (10:20)
[2016-07-31] MEDS: MULTIVITAMIN (CENTRUM) TABLET PO SCH (10:21)
[2016-07-31] MEDS: PHENYLEPHRINE DRIP 40 MG/250 ML PREMIX IV SCH (14:23)
[2016-07-31] MEDS: ALBUTEROL/IPRATROPIUM 3 ML NEB RESP TX SCH (19:34)
[2016-07-31] MEDS: ENOXAPARIN 40 MG/0.4 ML SYRINGE SUBCUT SCH (21:39)
[2016-08-01] MEDS: ALBUTEROL/IPRATROPIUM 3 ML NEB RESP TX SCH ×4 (00:23→19:15)
--- NOTE | 2016-08-01 07:23 | Electroencephalogram ---
DATE OF STUDY: 07/29/2016 HISTORY: A 61-year-old male with a history of questionable seizure activity and unresponsiveness. He is on vent. INTRODUCTION: A digital EEG was performed using the standard 10/20 system of electrode placement wi th one channel of EKG monitoring. Photic stimulation is performed. DESCRIPTION OF RECORD: The background is very disorganized, consists of 4 to 5 hertz, very low ampl itude bilaterally symmetrical rhythm. Photic stimulation does not elicit a driving response. The r ecord does not activate upon patient stimulation. There are no focal, sharp-wave, spike, or wave ac tivity seen. Heart rate 72 beats per minute. IMPRESSION: ABNORMAL EEG DUE TO GENERALIZED SLOWING. CLINICAL CORRELATION: This record is supportive of extremely severe encephalopathy, which could be secondary to postictal state, posthypoxic state, metabolic disorder, diffuse WEATHER ANALYST insult, or increase d intracranial pressure. No epileptiform/seizure activity seen. Clinical correlation is suggested.
[2016-08-01 08:17] LABS: Basophils % 0.5 % (0.0-0.8); Hematocrit 36.4 VOL% (42.0-52.0); Hemoglobin 11.9 GM/DL (14.0-18.0); Immature Granulocytes % 0.5 %; Immature Granulocytes Absolute 0.03 #; Lymphocytes # 1.3 10*3/uL (1.4-4.0); Lymphocytes % 22.3 % (21.2-54.2); Mean Corpuscular HGB Conc 32.7 GM/DL (32-36); Mean Corpuscular Hemoglobin 31 PG (27-34); Mean Corpuscular Volume 94.8 FL (87-102); Mean Platelet Volume 11.5 FL (9.6-12.0); Monocytes # 0.7 10*3/uL (0.11-0.8); Monocytes % 11.2 % (1.7-12.7); Neutrophils # 3.8 10*3/uL (1.4-7.4); Neutrophils % 65.5 % (38.7-73.9); Platelet Count 177 T/CUMM (130-400); Red Blood Count 3.84 MC/CUMM (3.8-5.5); Red Cell Distribution Width 12.1 % (9.3-17.3); White Blood Count 5.9 T/CUMM (4-12)
[2016-08-01 08:38] LABS: Platelet Estimate Adequate
[2016-08-01 08:46] LABS: Calcium 8.7 MG/DL (8.5-10.1); Osmolality,Calculated 288.7 MOS/KG (273-304); Potassium 4.3 MMOL/L (3.5-5.1)
[2016-08-01] MEDS ORDERED: MAGNESIUM SULF RIDER 2 GM in PREMIX 1 EACH IV ONE (08:51)
[2016-08-01] MEDS: LISINOPRIL 10 MG TABLET PO SCH (08:58)
[2016-08-01] MEDS: PANTOPRAZOLE 40 MG TABLET PO SCH (08:59)
[2016-08-01] MEDS: CARVEDILOL 3.125 MG TABLET PO SCH ×2 (08:59→20:33)
[2016-08-01] MEDS: MULTIVITAMIN (CENTRUM) TABLET PO SCH (08:59)
[2016-08-01] MEDS: ASPIRIN EC 81 MG TABLET PO SCH (08:59)
--- NOTE | 2016-08-01 08:59 | Hospitalist Progress Note ---
Assessment and Plan (1) Congestive heart failure Status: Acute Assessment and plan: The patient will restart on diuretic medications today and transfer to monitored unit. I anticipate his neurologic function will continue to improve and hopefully he will be ready for discharge home on Monday or . Current Visit: No Qualifiers: Congestive heart failure type: systolic Congestive heart failure chronicity : acute on chronic Qualified Code(s): I50.23 - Acute on chronic systolic ( congestive) heart failure (2) Acute respiratory failure Status: Acute Current Visit: Yes (3) New onset seizure Status: Acute Current Visit: Yes Hospitalist: Subjective Interval history: The patient was admitted to the hospital with systolic congestive heart failure. He had positive drug screen at the time of admission. After 3 days diuresis, the patient was prepared for discharge home on oral Lasix. The patient developed acute seizure and required intubation. The patient was transferred to the critical care area and remained on the ventilator for several days. He had neurology consultation with Dr. Arroyo. It appears likely that the patient had substance withdrawal seizure. The patient is now on Keppra and not have any further seizures. He was extubated on the evening of July 31 and continues stable. The patient is ready for transfer to a monitored floor and may be discharged home soon if his neurologic condition continues to improve. Exam - Constitutional Vitals: Period Temp Pulse Resp BP Sys/Syed Pulse Ox Last 24 Hr 98.3 F-100.9 F 94-125 6-42 123-163/84-116 92-100 General appearance: no acute distress - Head Head exam: Present: normocephalic - Respiratory Respiratory exam: Present: clear to auscultation bilaterally, decreased breath sounds (In basis) - Cardiovascular Cardiovascular exam: Present: regular rate and rhythm - GI/Abdominal GI/Abdominal exam: Present: normal bowel sounds - Neurological Exam Neurological exam: Present: other (The patient has been slow to awaken from sedation but is making steady progress now) Results - Labs CBC & BMP: 08/01/16 07:46 08/01/16 07:47 Lab Results: I have reviewed the past 24 hour labs
--- NOTE | 2016-08-01 08:59 | Neurology Progress Note ---
Neurology - PN : Subjective Interval history: Patient seems to be doing much better. No new problems reported. He is extubated. No more seizures reported. Alert and awake and following commands. Speech is fluent Exam (Progress Note) - Constitutional Vitals: Period Temp Pulse Resp BP Sys/Syed Pulse Ox Last 24 Hr 98.3 F-100.9 F 94-125 6-42 123-163/84-116 92-100 Exam: GENERAL: Patient is in no acute distress. NECK: Neck is supple. There is no JVD. No carotid bruits present. No thyroid masses. CVS: First and second heart sounds are normal. There is no S3 present. Regular rate and rhythm. RESPIRATORY: Lungs are clear to auscultation without any rales or rhonchi. ABDOMEN: Soft and non-tender. Bowel sounds are present. There is no hepatosplenomegaly. EXT: There is no palpable edema. Peripheral pulses are present. Skin: No rashes Central Nervous system: General: Alert, awake Speech: Fluent Comprehension: Fair Facial expressions: Normal Cranial Nerves: CN1/Olfactory: Normal CN II/ Optic: Normal, Visual Franklin unreliable CN III, and : MAAME & EOMI CN V: Normal & intact CN VII: face is symmetric CNVIII: Normal CN XI/X/XI/XII: Intact and Normal Motor: Bulk and Tone is normal. Strength symmetric Sensory: Unreliable Reflexes: 1+ and symmetrical Cerebellar function: Normal finger to nose and heel to smith testing. Toes: Equivocal Gait: Not tested Results - Labs CBC & BMP: 08/01/16 07:46 08/01/16 07:47 Assessment and Plan (1) New onset seizure Status: Acute Assessment and plan: Continue Keppra at the same dose Patient seems to be doing well. No further neuro intervention/recommendation at this time Sign off please call. Current Visit: Yes
[2016-08-01] MEDS: levETIRAcetam 500 MG TABLET PO SCH ×2 (09:05→20:33)
[2016-08-01] MEDS: FUROSEMIDE 80 MG TABLET PO SCH (15:28)
[2016-08-01] MEDS: ENOXAPARIN 40 MG/0.4 ML SYRINGE SUBCUT SCH (20:33)
[2016-08-02] MEDS: ALBUTEROL/IPRATROPIUM 3 ML NEB RESP TX SCH ×4 (00:15→19:11)
[2016-08-02 07:45] LABS: Basophils % 0.6 % (0.0-0.8); Eosinophils % 0.2 % (0.00-10.9); Hematocrit 32.6 VOL% (42.0-52.0); Immature Granulocytes % 0.6 %; Immature Granulocytes Absolute 0.04 #; Lymphocytes # 1.5 10*3/uL (1.4-4.0); Lymphocytes % 24.2 % (21.2-54.2); Mean Corpuscular HGB Conc 33.7 GM/DL (32-36); Mean Corpuscular Hemoglobin 31 PG (27-34); Mean Corpuscular Volume 92.9 FL (87-102); Mean Platelet Volume 10.7 FL (9.6-12.0); Monocytes % 15.9 % (1.7-12.7); Neutrophils # 3.7 10*3/uL (1.4-7.4); Neutrophils % 58.5 % (38.7-73.9); Platelet Count 240 T/CUMM (130-400); Red Blood Count 3.51 MC/CUMM (3.8-5.5); Red Cell Distribution Width 11.9 % (9.3-17.3); White Blood Count 6.2 T/CUMM (4-12)
[2016-08-02 08:10] LABS: Band Neutrophils 1 % (0-10); Hypochromasia 1+; Lymphocytes 25 % (20-55); Platelet Estimate Adequate; Segmented Neutrophils 58 % (50-85); Total Cells Counted 100
[2016-08-02 08:14] LABS: Calcium 8.7 MG/DL (8.5-10.1); Magnesium 2.2 MG/DL (1.8-2.4); Osmolality,Calculated 284.3 MOS/KG (273-304)
[2016-08-02] MEDS: LISINOPRIL 10 MG TABLET PO SCH (09:35)
[2016-08-02] MEDS: levETIRAcetam 500 MG TABLET PO SCH ×2 (09:35→21:28)
[2016-08-02] MEDS: PANTOPRAZOLE 40 MG TABLET PO SCH (09:36)
[2016-08-02] MEDS: ASPIRIN EC 81 MG TABLET PO SCH (09:36)
[2016-08-02] MEDS: MULTIVITAMIN (CENTRUM) TABLET PO SCH (09:36)
[2016-08-02] MEDS: FUROSEMIDE 80 MG TABLET PO SCH ×2 (09:36→15:56)
[2016-08-02] MEDS: CARVEDILOL 3.125 MG TABLET PO SCH ×2 (09:36→21:28)
--- NOTE | 2016-08-02 09:56 | Hospitalist Progress Note ---
Assessment and Plan - Time spent with patient Time spent with patient: Greater than 30 minutes (1) New onset seizure Status: Acute Assessment and plan: Pt has remained stable since his seizure episode. C/W keppra. No further neuro intervention per neuro Current Visit: Yes (2) Congestive heart failure Status: Acute Assessment and plan: Careful diuresis as pt may be behind in fluids now. Get orthostatic vitals as patient reported dizziness Current Visit: No Qualifiers: Congestive heart failure type: systolic Congestive heart failure chronicity : acute on chronic Qualified Code(s): I50.23 - Acute on chronic systolic ( congestive) heart failure (3) Physical deconditioning Status: Acute Assessment and plan: Get PT/OT for pt's generalized weakness. Current Visit: Yes (4) Acute respiratory failure Status: Acute Assessment and plan: Resolved. Might be related to congestive features; pt was saturating well on room air when seen by me today. Monitor Current Visit: Yes (5) Polysubstance abuse Status: Acute Assessment and plan: marijuana and cocaine noted in patient's urine drug screen. 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 He was recently extubated 2 days ago and transferred to this floor just yesterday. He reports feeling dizzy on standing up and so we are going to obtain orthostatic vital signs. We will also consult physical therapy. Patient reports not feeling good enough to be discharged which I agree with. He is likely dehydrated. He has been diuresed for decompensated heart failure. His BNP this mornig is > 5000 though Patient denied chest pain but reported intermittent shortness of breath. Exam - Constitutional Vitals: Period Temp Pulse Resp BP Sys/Syed Pulse Ox Last 24 Hr 97.1 F-98.6 F 78-118 20-25 129-148/78-108 90-100 General appearance: normal weight - Head Head exam: Present: normocephalic, atraumatic - Eye Eye exam: Present: EOMI Pupils: Present: MAAME - Neck Neck exam: Absent: lymphadenopathy, thyromegaly - Respiratory Respiratory exam: Present: decreased breath sounds - Cardiovascular Cardiovascular exam: Absent: JVD - GI/Abdominal GI/Abdominal exam: Present: normal bowel sounds - Extremities Exam Extremities exam: Absent: edema - Neurological Exam Neurological exam: Present: alert, oriented X3 - Psychiatric Psychiatric exam: Present: normal mood - Skin Skin exam: Present: normal color Results - Labs CBC & BMP: 08/02/16 07:19 08/02/16 07:20 Lab Results: I have reviewed the past 24 hour labs
[2016-08-02] MEDS: ENOXAPARIN 40 MG/0.4 ML SYRINGE SUBCUT SCH (21:28)
[2016-08-03] MEDS: ALBUTEROL/IPRATROPIUM 3 ML NEB RESP TX SCH ×4 (01:00→19:34)
[2016-08-03 05:57] LABS: Basophils % 0.6 % (0.0-0.8); Eosinophils % 0.2 % (0.00-10.9); Hematocrit 33.6 VOL% (42.0-52.0); Hemoglobin 11.1 GM/DL (14.0-18.0); Immature Granulocytes % 0.3 %; Immature Granulocytes Absolute 0.02 #; Lymphocytes # 1.8 10*3/uL (1.4-4.0); Lymphocytes % 27.7 % (21.2-54.2); Mean Corpuscular Hemoglobin 31 PG (27-34); Mean Corpuscular Volume 94.4 FL (87-102); Monocytes % 15.2 % (1.7-12.7); Neutrophils # 3.7 10*3/uL (1.4-7.4); Platelet Count 329 T/CUMM (130-400); Red Blood Count 3.56 MC/CUMM (3.8-5.5); White Blood Count 6.7 T/CUMM (4-12)
[2016-08-03 06:27] LABS: Calcium 8.3 MG/DL (8.5-10.1); Magnesium 1.9 MG/DL (1.8-2.4); Osmolality,Calculated 293.6 MOS/KG (273-304); Potassium 3.7 MMOL/L (3.5-5.1)
[2016-08-03] MEDS: ASPIRIN EC 81 MG TABLET PO SCH (10:32)
[2016-08-03] MEDS: PANTOPRAZOLE 40 MG TABLET PO SCH (10:32)
[2016-08-03] MEDS: levETIRAcetam 500 MG TABLET PO SCH ×2 (10:32→20:32)
[2016-08-03] MEDS: LISINOPRIL 10 MG TABLET PO SCH (10:32)
[2016-08-03] MEDS: CARVEDILOL 3.125 MG TABLET PO SCH ×2 (10:32→20:32)
[2016-08-03] MEDS: MULTIVITAMIN (CENTRUM) TABLET PO SCH (10:32)
[2016-08-03] MEDS: FUROSEMIDE 80 MG TABLET PO SCH ×2 (10:32→16:11)
--- NOTE | 2016-08-03 11:37 | Hospitalist Progress Note ---
Assessment and Plan (1) New onset seizure Status: Acute Assessment and plan: Pt has remained stable since his seizure episode. C/W keppra. No further neuro intervention per neuro Current Visit: Yes (2) Congestive heart failure Status: Acute Assessment and plan: Careful diuresis as pt may be behind in fluids now. Get orthostatic vitals as patient reported dizziness Current Visit: No Qualifiers: Congestive heart failure type: systolic Congestive heart failure chronicity : acute on chronic Qualified Code(s): I50.23 - Acute on chronic systolic ( congestive) heart failure (3) Physical deconditioning Status: Acute Assessment and plan: Get PT/OT for pt's generalized weakness. Current Visit: Yes (4) Acute respiratory failure Status: Acute Assessment and plan: Resolved. Might be related to congestive features; pt was saturating well on room air when seen by me today. Monitor Current Visit: Yes (5) Polysubstance abuse Status: Acute Assessment and plan: marijuana and cocaine noted in patient's urine drug screen. Director Marketing patient Current Visit: Yes Hospitalist: Subjective Interval history: Seen on examined. He was extubated 3 days ago because of hypoxia and respiratory failure. He now reports odynophagia. He is most likely due to recent intubation. He said he is not able to eat because of this. Physical therapy has seen patient and recommended home PT as well as outpatient psych evaluation. He is polysubstance abuse with urine drug screen regular cocaine and marijuana. His proBNP elevated at 5000. Echocardiogram done on 07/26/2016 reviewed EF < 20% with severe dilated left atrium. 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 Patient is currently on FERN inhibitor low-dose and Coreg. Exam - Constitutional Vitals: Period Temp Pulse Resp BP Sys/Syed Pulse Ox Last 24 Hr 97.5 F-99 F 96-120 18-218 111-130/76-93 92-100 Results - Labs CBC & BMP: 08/03/16 05:19 08/03/16 05:19
[2016-08-03] MEDS: ENOXAPARIN 40 MG/0.4 ML SYRINGE SUBCUT SCH (20:32)
[2016-08-04] MEDS: ALBUTEROL/IPRATROPIUM 3 ML NEB RESP TX SCH ×6 (00:44→23:33)
[2016-08-04 07:47] LABS: Basophils % 0.3 % (0.0-0.8); Eosinophils % 0.1 % (0.00-10.9); Hematocrit 33.5 VOL% (42.0-52.0); Hemoglobin 11.5 GM/DL (14.0-18.0); Immature Granulocytes % 0.3 %; Immature Granulocytes Absolute 0.03 #; Lymphocytes # 1.9 10*3/uL (1.4-4.0); Lymphocytes % 20.9 % (21.2-54.2); Mean Corpuscular HGB Conc 34.3 GM/DL (32-36); Mean Corpuscular Hemoglobin 32 PG (27-34); Mean Platelet Volume 11.1 FL (9.6-12.0); Monocytes # 1.2 10*3/uL (0.11-0.8); Monocytes % 12.6 % (1.7-12.7); Neutrophils # 6.1 10*3/uL (1.4-7.4); Neutrophils % 65.8 % (38.7-73.9); Platelet Count 458 T/CUMM (130-400); Red Blood Count 3.64 MC/CUMM (3.8-5.5); Red Cell Distribution Width 12.3 % (9.3-17.3); White Blood Count 9.3 T/CUMM (4-12)
[2016-08-04 08:20] LABS: Calcium 8.5 MG/DL (8.5-10.1); Magnesium 1.8 MG/DL (1.8-2.4); Osmolality,Calculated 286.1 MOS/KG (273-304); Potassium 3.7 MMOL/L (3.5-5.1)
[2016-08-04] MEDS: BENZOCAINE/MENTHOL LOZENGE 18/BOX PO PRN ×3 (09:35→17:55)
[2016-08-04] MEDS: MULTIVITAMIN (CENTRUM) TABLET PO SCH (09:36)
[2016-08-04] MEDS: CARVEDILOL 3.125 MG TABLET PO SCH ×2 (09:36→20:25)
[2016-08-04] MEDS: LISINOPRIL 10 MG TABLET PO SCH (09:36)
[2016-08-04] MEDS: FUROSEMIDE 80 MG TABLET PO SCH ×2 (09:36→15:54)
[2016-08-04] MEDS: levETIRAcetam 500 MG TABLET PO SCH ×2 (09:36→20:28)
[2016-08-04] MEDS: PANTOPRAZOLE 40 MG TABLET PO SCH (09:36)
[2016-08-04] MEDS: ASPIRIN EC 81 MG TABLET PO SCH (09:36)
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
[2016-08-04] MEDS ORDERED: FUROSEMIDE 40 MG/4 ML VIAL IV ONE (16:47)
--- NOTE | 2016-08-04 16:47 | Hospitalist Progress Note ---
Assessment and Plan - Time spent with patient Time spent with patient: Less than 30 minutes (1) New onset seizure Status: Acute Assessment and plan: Pt has remained stable since his seizure episode. C/W sharlene. No further neuro intervention per neuro Current Visit: Yes (2) Congestive heart failure Status: Acute Assessment and plan: Recent echocardiogram done on July 26, 2016 revealed EF of less than 20%. Careful diuresis as pt may be behind in fluids now. Follow-up for starting vital signs. Current Visit: No Qualifiers: Congestive heart failure type: systolic Congestive heart failure chronicity : acute on chronic Qualified Code(s): I50.23 - Acute on chronic systolic ( congestive) heart failure (3) Physical deconditioning Status: Acute Assessment and plan: PT/OT for pt's generalized weakness. Current Visit: Yes (4) Acute respiratory failure Status: Acute Assessment and plan: Resolved. Might be related to congestive features; pt was saturating well on room air when seen by me today. Monitor Current Visit: Yes (5) Polysubstance abuse Status: Acute Assessment and plan: marijuana and cocaine noted in patient's urine drug screen. 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 Could be underlying COPD. Gave a dose of IV lasix; Going to get CT scan of the chest without contrast to further evaluate for possible pneumonia. Patient has hyperinflated lung lockhart on chest x-ray. Placed patient on bronchodilators and by mouth prednisone. Also started patient on vancomycin as MRSA nares was positive on August 01, 2016. Also added Zosyn. Send for sputum culture. If patient's CT scan of the chest without contrast is negative, broad- spectrum antibiotics could be discontinued. consulted Pulmonary for help with patient's shortness of breath. Patient's EF on recent Echo < 20% Current Visit: Yes Hospitalist: Subjective Interval history: The patient was admitted to the hospital with decompensated systolic congestive heart failure on 07/26/16. He had positive drug screen (cocaine and marijuana) at the time of admission. After 3 days diuresis, the patient was prepared for discharge home on oral Lasix. The patient developed acute seizure and required intubation. The patient was transferred to the critical care area and remained on the ventilator for several days. He had neurology consultation with Dr. Arroyo. It appears likely that the patient had substance withdrawal seizure. The patient is now on Keppra and not have any further seizures. He was extubated on the evening of July 31 and has remianed stable. Patient was subsequently transferred to the floor. He continues to have intermittent shortness of breath. Patient seen and examined. He was refusing breathing treatment this afternoon. He did complain of shortness of breath and obviously, patient was having noisy breathing; he has labored breathing. He later on accepted to get breathing treatment. Will place him on duo nebs every 4 hourly scheduled. His chest x-ray from today had revealed stable cardiomegaly with overexpanded lungs and chronic scarring as well as decreased atelectasis/infiltrate/edema in the lungs. His proBNP is decreased at 3800 from 5000. I am going to give him a dose of Lasix IV, and also add p.o. prednisone to his regimen. I also consulted Pulmonary to see patient for his dyspnea. Exam - Constitutional Vitals: Period Temp Pulse Resp BP Sys/Syed Pulse Ox Last 24 Hr 97.3 F-99.5 F 61-98 17-24 109-126/71-94 96-100 General appearance: mild distress ( Patient is in some [id number] respiratory distress as evidenced by stridorous breathing.) - Head Head exam: Present: normocephalic, atraumatic - Eye Eye exam: Present: EOMI Pupils: Present: MAAME - Neck Neck exam: Absent: lymphadenopathy, thyromegaly - Respiratory Respiratory exam: Present: decreased breath sounds - Cardiovascular Cardiovascular exam: Absent: diastolic murmur, JVD, systolic murmur - GI/Abdominal GI/Abdominal exam: Absent: distended - Extremities Exam Extremities exam: Absent: edema - Neurological Exam Neurological exam: Present: alert, oriented X3, CN II-XII intact - Psychiatric Psychiatric exam: Present: agitated - Skin Skin exam: Present: normal color Results - Labs CBC & BMP: 08/04/16 07:14 08/04/16 07:14 Lab Results: I have reviewed the past 24 hour labs
[2016-08-04] MEDS: predniSONE 20 MG TABLET PO SCH (18:14)
[2016-08-04] MEDS: ENOXAPARIN 40 MG/0.4 ML SYRINGE SUBCUT SCH (20:26)
[2016-08-05] MEDS: PIPERACILLIN/TAZOBACTAM 3,375 MG in SODIUM CHLORIDE 0.9% 100 ML IV SCH ×2 (00:45→08:59)
[2016-08-05] MEDS: ALBUTEROL/IPRATROPIUM 3 ML NEB RESP TX SCH ×3 (03:38→07:12)
[2016-08-05] MEDS ORDERED: VANCOMYCIN INJ 750 MG in SODIUM CHLORIDE 0.9% 250 ML IV SCH (04:00)
[2016-08-05 06:17] LABS: Basophils % 0.2 % (0.0-0.8); Hematocrit 39.9 VOL% (42.0-52.0); Hemoglobin 13.1 GM/DL (14.0-18.0); Immature Granulocytes % 0.5 %; Immature Granulocytes Absolute 0.05 #; Lymphocytes # 1.2 10*3/uL (1.4-4.0); Lymphocytes % 12.4 % (21.2-54.2); Mean Corpuscular HGB Conc 32.8 GM/DL (32-36); Mean Corpuscular Hemoglobin 31 PG (27-34); Mean Corpuscular Volume 94.8 FL (87-102); Mean Platelet Volume 10.6 FL (9.6-12.0); Monocytes # 0.6 10*3/uL (0.11-0.8); Monocytes % 6.4 % (1.7-12.7); Neutrophils # 7.9 10*3/uL (1.4-7.4); Neutrophils % 80.5 % (38.7-73.9); Platelet Count 585 T/CUMM (130-400); Red Blood Count 4.21 MC/CUMM (3.8-5.5); Red Cell Distribution Width 12.3 % (9.3-17.3); White Blood Count 9.8 T/CUMM (4-12)
[2016-08-05 06:58] LABS: Calcium 8.5 MG/DL (8.5-10.1); Osmolality,Calculated 292.8 MOS/KG (273-304); Potassium 4.1 MMOL/L (3.5-5.1)
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
[2016-08-05] MEDS: ASPIRIN EC 81 MG TABLET PO SCH (09:00)
[2016-08-05] MEDS: CARVEDILOL 3.125 MG TABLET PO SCH (09:01)
[2016-08-05] MEDS: FUROSEMIDE 80 MG TABLET PO SCH (09:01)
[2016-08-05] MEDS: BENZOCAINE/MENTHOL LOZENGE 18/BOX PO PRN (09:02)
[2016-08-05] MEDS: MULTIVITAMIN (CENTRUM) TABLET PO SCH (10:47)
[2016-08-05] MEDS: LISINOPRIL 10 MG TABLET PO SCH (10:47)
[2016-08-05] MEDS: predniSONE 20 MG TABLET PO SCH (10:47)
[2016-08-05] MEDS: levETIRAcetam 500 MG TABLET PO SCH (10:47)
[2016-08-05] MEDS: PANTOPRAZOLE 40 MG TABLET PO SCH (10:48)
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
[2016-08-05] MEDS ORDERED: BUDESONIDE/FORMOTEROL 160-4.5 INHALER 6 GM INH SCH (11:00)
[2016-08-05] MEDS ORDERED: CEFUROXIME 500 MG TABLET PO SCH (11:00)
--- NOTE | 2016-08-05 11:23 | Discharge Summary ---
Hospital Course - Hospital Course Hospital Course: The patient was admitted to the hospital with decompensated systolic congestive heart failure on 07/26/16. He had positive drug screen (cocaine and marijuana) at the time of admission. After 3 days diuresis, the patient was prepared for discharge home on oral Lasix. The patient developed acute seizure and required intubation. The patient was transferred to the critical care area and remained on the ventilator for several days. He had neurology consultation with Dr. Arroyo. It appears likely that the patient had substance withdrawal seizure. The patient is now on Keppra and not have any further seizures. He was extubated on the evening of July 31 and has remained stable. Patient was subsequently transferred to the floor. He continues to have intermittent shortness of breath. He is refusing breathing treatment this afternoon. He did complain of shortness of breath and obviously, patient was having noisy breathing; he has labored breathing. He later on accepted to get breathing treatment. Will place him on duo nebs every 4 hourly scheduled. His chest x-ray from today had revealed stable cardiomegaly with overexpanded lungs and chronic scarring as well as decreased atelectasis/infiltrate/edema in the lungs. His proBNP is decreased at 3800 from 5000. I am going to add p.o. prednisone to his regimen at discharge. I also consulted Pulmonary to see patient for his dyspnea. They recommended bronchodilators and stop smoking. The patient is admittedly non compliant and says he does not plan to take the meds. I will prescribe them anyway. - Time spent with patient Time with patient DS: Greater than 30 minutes (total time for discharge 45 min) Diagnosis - Discharge Diagnosis (1) Congestive heart failure Status: Acute (2) Essential hypertension Status: Chronic (3) Medical non-compliance Status: Chronic (4) Nicotine addiction Status: Chronic (5) Cocaine abuse Status: Chronic (6) Acute respiratory failure Status: Acute (7) New onset seizure Status: Acute (8) Polysubstance abuse Status: Acute (9) COPD (chronic obstructive pulmonary disease) Status: Chronic Discharge Plan - Discharge Data Disposition: Home Health Service Condition at Discharge: Stable Discharge Diet: advance to your usual diet Activity: resume usual activities as tolerated, no lifting Hygiene: no restrictions Weight Bearing at Discharge: full weight bearing - Discharge Medications New Budesonide/Formoterol 160-4.5 [Symbicort 160-4.5] 2 puff INH BID #1 inhaler Cefuroxime Tab [Ceftin] 500 mg PO BID #14 tablet levETIRAcetam TAB [Keppra Tab] 500 mg PO BID #60 tablet methylPREDNISolone DOSEPAK [Medrol Dosepak] 4 mg PO DIRECTED #1 pack Albuterol Inhaler [Proventil Inhaler] 2 puff INH Q6H PRN #1 inhaler PRN Reason: Shortness Of Breath/Wheezing Benzocaine/Menthol Lozenge [Cepacol Lozenge] 1 lozenge PO Q2H PRN #20 lozenge PRN Reason: Sore Throat Furosemide Tab [Lasix Tab] 80 mg PO BID DIURETIC #60 tablet Continue Aspirin [Ecotrin] 81 mg PO DAILY #30 tablet Carvedilol [Coreg] 3.125 mg PO BID #60 tablet Lisinopril 10 mg PO DAILY #30 tablet Multivitamin with Minerals [One Daily Complete] 1 each PO DAILY #100 tablet Discontinued Furosemide Tab [Lasix Tab] 20 mg PO DAILY - Follow Up or Referral Follow Up: Yonny Arroyo MD [Physician] - - Forms/Instructions Exam - Constitutional Vitals: Period Temp Pulse Resp BP Sys/Syed Pulse Ox Last 24 Hr 97.2 F-99.1 F 61-102 17-22 110-128/71-89 93-98 General appearance: no acute distress, under weight - Head Head exam: Present: normal inspection, normocephalic, atraumatic - Eye Eye exam: Present: EOMI Pupils: Present: MAAME - ENT ENT exam: Present: normal exam - Neck Neck exam: Present: normal inspection - Respiratory Respiratory exam: Present: clear to auscultation bilaterally - Cardiovascular Cardiovascular exam: Present: regular rate and rhythm - GI/Abdominal GI/Abdominal exam: Present: normal bowel sounds, soft - Extremities Exam Extremities exam: Absent: edema - Neurological Exam Neurological exam: Present: alert, oriented X3 - Psychiatric Psychiatric exam: Present: agitated - Skin Skin exam: Present: normal color, warm, dry Discharge Results Procedures and tests throughout hospitalization: Pending Orders 08/04/16 04:50 Sputum Culture and Gram Stain Routine Labs on day of discharge: Labs from last 24 hours 08/05/16 08/05/16 08/04/16 05:40 05:40 14:43 WBC 9.8 RBC 4.21 Hgb 13.1 L Hct 39.9 L MCV 94.8 MCH 31 MCHC 32.8 RDW 12.3 Plt Count 585 H D MPV 10.6 Neut % (Auto) 80.5 H Lymph % (Auto) 12.4 L [place] % (Auto) 6.4 Eos % (Auto) 0.0 Baso % (Auto) 0.2 Neut # (Auto) 7.9 H Lymph # (Auto) 1.2 L [place] # (Auto) 0.6 Eos # (Auto) 0.0 Baso # (Auto) 0.0 Immature Gran % 0.5 Nucleated RBC % 0.0 Immature Gran # 0.05 Nucleated RBCs # 0.00 Sodium 144 Potassium 4.1 Chloride 99 Carbon Dioxide 29 Anion Gap 20.1 H BUN 25 H Creatinine 1.20 GFR Calculation 68 BUN/Creatinine Ratio 20.00 Glucose 146 H Calculated Osmolality 292.8 Calcium 8.5 Magnesium 2.0 B-Natriuretic Peptide 3809 H - Imaging and Cardiology Procedure: Chest x-ray: image reviewed by me, report reviewed by me, CT - chest : image reviewed by me, report reviewed by me DS: Provider Date of admission: 07/26/16 10:25 Primary care physician: . No PCP Attending physician on admission: Arcenio Cano MD Consults: 07/26/16 16:13 Consult to Dietitian [CONS] Routine Reason for Dietitian: Other 07/28/16 01:10 Consult to Physician [CONS] Routine Comment: Consulting Provider: Yonny Arroyo Consulting Provider Notified: Yes When should Consulting Provider be notified: In am Person Notified: YANET Date Notified: 07/28/16 Time Notified: 09:36 08/02/16 09:43 Consult to Physical Therapy [CONS] Routine Reason for Physical Therapy: Ambulation 08/03/16 11:27 Consult to Case Mgmt/Social Srvs [CONS] Routine Reason for Case Mgmt/Social Srvs: Home Health Consult Comment: with physical therapy 08/04/16 22:47 Consult to Physician [CONS] Routine Comment: Persistent dyspnea Consulting Provider: Wilmar Jules Person Notified: office Date Notified: 08/05/16 Time Notified: 08:52 Consult Notification Comment: 08/04/16 22:56 Consult to Pharmacy [CONS] Routine Reason for Pharmacy Consult: Dose/Manage Vancomycin Discharging clinician: Archana Daniels MD Expected date of discharge: 08/05/16
[2016-08-05 13:06] VITALS: BP 100/70
== END 2016-08-05 13:53 | disposition home health service (06) | DRG 291 ==
LOC: EDUNIT# → EDBD → N.ED 06:21 → MERGE 10:25 → SUATTDRO 10:25 → N.EDINP 10:25 → N.TELES 15:33 → N.CC 07-28 01:02 → N.2E 08-01 10:42 → N.CC 08-01 10:55 → N.2E 08-01 12:26
PROVIDERS: ADMIT Internal Medicine; ATTEND Family Medicine

== ENCOUNTER 2016-09-21 15:22 | Inpatient (IN) ==
[2016-09-21] MEDS ORDERED: LEVOFLOXACIN INJ 500 MG in PREMIX 1 EACH IV STA (15:42)
[2016-09-21] MEDS ORDERED: methylPREDNISolone SOD SUC 125 MG/2 ML VIAL IV STA (15:42)
[2016-09-21] MEDS ORDERED: ALBUTEROL 2.5 MG/3 ML NEB RESP TX STA ×2 (15:42→17:53)
[2016-09-21] MEDS ORDERED: SODIUM CHLORIDE 0.9% 500 ML IV STA (15:42)
--- NOTE | 2016-09-21 15:46 | EKG Report ---
Stationary ECG Study [facility] ER Test Date: 09/21/2016 3:35:04 PM Pat Name: EBER ARREOLA Department: Room: Gender: M Aws Architect: Howie Romero : 1955 Requested by: Nikunj Villafana Order Number: [id number] Reading MD: ROSY CARRERA Intervals [place] Rate: 128 P: 999 OR: 0 QRS: -82 QRSD: 157 T: 91 QT: 357 QTc: 433 Interpretive Statements UNDETERMINED REGULAR RHYTHM (Sinus versus atrial tachycardia) at 128 bpm LEFT BUNDLE BRANCH BLOCK Electronically Signed On 09-23-16 13:58:12 CDT by ROSY CARRERA [email or web address]
[2016-09-21 16:08] LABS: ABG Base Excess -3.4 MMOL/L (-2.5-2.5); ABG Oxygen Saturation 97.6 % (95-100); ABG PCO2 26.9 MM HG (35-48); ABG PH 7.468 (7.35-7.45); ABG TCO2 19.9 MMOL/L (23-27)
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
[2016-09-21 16:17] LABS: Basophils % 0.3 % (0.0-0.8); Hematocrit 33.4 VOL% (42.0-52.0); Immature Granulocytes % 0.1 %; Immature Granulocytes Absolute 0.01 #; Lymphocytes # 1.8 10*3/uL (1.4-4.0); Mean Corpuscular HGB Conc 32.9 GM/DL (32-36); Mean Corpuscular Hemoglobin 31 PG (27-34); Mean Corpuscular Volume 93.8 FL (87-102); Mean Platelet Volume 9.8 FL (9.6-12.0); Monocytes # 0.5 10*3/uL (0.11-0.8); Monocytes % 7.2 % (1.7-12.7); Neutrophils # 4.8 10*3/uL (1.4-7.4); Neutrophils % 67.4 % (38.7-73.9); Platelet Count 265 T/CUMM (130-400); Red Blood Count 3.56 MC/CUMM (3.8-5.5); Red Cell Distribution Width 13.3 % (9.3-17.3); White Blood Count 7.1 T/CUMM (4-12)
[2016-09-21 16:27] LABS: INR 1.2; PT Patient Result 12.6 SECS; Partial Thromboplastin Time 26.1 SECS (0-40)
[2016-09-21] MEDS ORDERED: methylPREDNISolone SOD SUC 125 MG/2 ML VIAL ONE (16:29)
[2016-09-21] MEDS ORDERED: LEVOFLOXACIN INJ 100 ML IV ONE (16:29)
[2016-09-21 16:52] LABS: Albumin 3.2 G/DL (3.4-5.0); Bilirubin,Total 1.9 MG/DL (0.2-1.0); Calcium 8.5 MG/DL (8.5-10.1); Osmolality,Calculated 284.4 MOS/KG (273-304); Potassium 4.2 MMOL/L (3.5-5.1); Total Protein 6.6 G/DL (6.4-8.3)
[2016-09-21 16:53] LABS: Troponin I Only 0.26 NG/ML (0.00-0.045)
[2016-09-21] MEDS ORDERED: FUROSEMIDE 40 MG/4 ML VIAL IV STA (16:55)
[2016-09-21] MEDS ORDERED: FUROSEMIDE 100 MG/10 ML VIAL ONE (16:55)
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
[2016-09-21 17:07] LABS: Barbiturates Screen,Urine Negative (Negative); Benzodiazepines Screen,Urine Negative (Negative); Cannabinoid Screen,Urine Positive (Negative); Opiate Screen,Urine Negative (Negative); Phencyclidine Screen,Urine Negative (Negative)
[2016-09-21] MEDS ORDERED: ONDANSETRON 4 MG/2 ML VIAL ONE (17:43)
[2016-09-21] MEDS ORDERED: ONDANSETRON 4 MG/2 ML VIAL IV STA (17:55)
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
[2016-09-21] MEDS ORDERED: ONDANSETRON 4 MG/2 ML VIAL IV PRN (20:46)
[2016-09-21] MEDS ORDERED: LISINOPRIL 10 MG TABLET PO ONE (21:30)
[2016-09-21] MEDS: levETIRAcetam 500 MG TABLET PO SCH (21:36)
[2016-09-21] MEDS: CARVEDILOL 3.125 MG TABLET PO SCH (21:36)
[2016-09-21] MEDS: ALBUTEROL/IPRATROPIUM 3 ML NEB RESP TX SCH (21:56)
[2016-09-21] MEDS: BUDESONIDE/FORMOTEROL 160-4.5 INHALER 6 GM INH SCH (22:16)
[2016-09-21 22:20] LABS: Troponin I Only 0.249 NG/ML (0.00-0.045)
[2016-09-22] MEDS: ALBUTEROL/IPRATROPIUM 3 ML NEB RESP TX SCH ×4 (00:53→19:02)
[2016-09-22] MEDS: methylPREDNISolone SOD SUC 125 MG/2 ML VIAL IV SCH ×2 (02:06→08:55)
[2016-09-22] MEDS: ALBUTEROL 2.5 MG/3 ML NEB RESP TX PRN (04:08)
[2016-09-22 05:57] LABS: Hematocrit 32.9 VOL% (42.0-52.0); Hemoglobin 11.1 GM/DL (14.0-18.0); Immature Granulocytes % 0.2 %; Immature Granulocytes Absolute 0.01 #; Lymphocytes # 1.2 10*3/uL (1.4-4.0); Lymphocytes % 24.1 % (21.2-54.2); Mean Corpuscular HGB Conc 33.7 GM/DL (32-36); Mean Corpuscular Hemoglobin 31 PG (27-34); Mean Corpuscular Volume 90.4 FL (87-102); Mean Platelet Volume 10.5 FL (9.6-12.0); Monocytes # 0.1 10*3/uL (0.11-0.8); Monocytes % 2.7 % (1.7-12.7); Neutrophils # 3.8 10*3/uL (1.4-7.4); Platelet Count 281 T/CUMM (130-400); Red Blood Count 3.64 MC/CUMM (3.8-5.5); Red Cell Distribution Width 13.1 % (9.3-17.3); White Blood Count 5.1 T/CUMM (4-12)
[2016-09-22 06:42] LABS: Troponin I Only 0.191 NG/ML (0.00-0.045)
[2016-09-22 06:48] LABS: Bilirubin,Total 1.4 MG/DL (0.2-1.0); Calcium 8.6 MG/DL (8.5-10.1); Magnesium 1.8 MG/DL (1.8-2.4); Osmolality,Calculated 284.7 MOS/KG (273-304); Potassium 4.6 MMOL/L (3.5-5.1); Risk Ratio 1.9; Thyroid Stimulating Hormone 0.355 uIU/ml (0.358-3.74); Total Protein 5.9 G/DL (6.4-8.3); VLDL CHOLESTEROL 12.2 MG/DL
--- NOTE | 2016-09-22 07:37 | Ultrasound Report ---
Bilateral lower extremity venous Doppler with mazariegos scale, Spectral Doppler and color-flow analysis performed and interpreted. Indication: Leg pain and swelling. Scanning over both common femoral veins, superficial femoral veins, greater saphenous veins and popliteal veins demonstrates normal compressibility, color flow, and augmentation. Impression: No evidence of DVT seen in either lower extremity. PROCEDURE INTERPRETED AT [facility] DEPARTMENT OF RADIOLOGY Final Report Signed by: Dr. Marilee Bustamante
[2016-09-22] MEDS: levETIRAcetam 500 MG TABLET PO SCH ×2 (08:49→21:03)
[2016-09-22] MEDS: LISINOPRIL 10 MG TABLET PO SCH (08:49)
[2016-09-22] MEDS: MULTIVITAMIN (CENTRUM) TABLET PO SCH (08:49)
[2016-09-22] MEDS: CARVEDILOL 3.125 MG TABLET PO SCH ×2 (08:50→21:03)
[2016-09-22] MEDS: ASPIRIN EC 81 MG TABLET PO SCH (08:50)
[2016-09-22] MEDS: FUROSEMIDE 40 MG/4 ML VIAL IV SCH ×2 (08:57→17:45)
[2016-09-22] MEDS: BUDESONIDE/FORMOTEROL 160-4.5 INHALER 6 GM INH SCH ×3 (09:02→21:03)
--- NOTE | 2016-09-22 11:04 | Hospitalist Progress Note ---
Assessment and Plan (1) Systolic CHF, acute on chronic Status: Acute Assessment and plan: The patient continues on therapy for systolic heart failure acute on chronic. The patient is receiving IV diuretic, FERN inhibitor for afterload reduction, and blood pressure regulation. The patient is also receiving therapy for COPD with inhaled beta agonist nebulizer and intravenous steroid and intravenous antibiotic. I anticipate he will improve enough to go to the floor tomorrow. Current Visit: Yes (2) Medical non-compliance Status: Chronic Current Visit: Yes (3) Polysubstance abuse Status: Chronic Current Visit: Yes Hospitalist: Subjective Interval history: Mr. Mora was admitted to the hospital yesterday with pulmonary edema and wheezing. Urine drug screen revealed cannabinoids but not cocaine. On last visit to the hospital the patient had substance withdrawal with withdrawal seizure activity. I am hoping to avoid that on this visit. The patient continues on bronchodilator therapy for wheezing as well as diuretic therapy for systolic congestive heart failure. The patient denies angina. Exam - Constitutional Vitals: Period Temp Pulse Resp BP Sys/Syed Pulse Ox Last 24 Hr 94.8 F-97.9 F 77-120 11-28 121-156/83-121 93-100 Exam: Constitutional System: Mild distress. No tremulousness. The patient has audible upper airway congestion Head: Normocephalic, atraumatic. Ears, Nose and Throat System: No evidence of Otitis or Mastoiditis. No epistaxis or discharge Eyes System: Pupils equal, round, and reactive. Extraocular muscles intact. Neck: Supple, without adenopathy, 2+ jugular venous distention. No thyromegaly , neck mass, or prior surgery apparent. Respiratory System: Chest bilateral rhonchi with upper airway congestion to auscultation. There is moderate air trapping Cardiovascular System: Heart with regular rate and rhythm. No murmur. GI System: Abdomen soft, nontender. Normo active bowel sounds present. Musculoskeletal System: limbs with no pedal edema. Full distal pulses. Neurological System: No discernable sensory deficit. No aphasia Psychiatric System: Conversation is borderline rational Results - Labs CBC & BMP: 09/22/16 05:24 09/22/16 05:24 Lab Results: I have reviewed the past 24 hour labs Quality Measures - Stroke Symptom Onset Unknown: No
[2016-09-22 13:18] LABS: Troponin I Only 0.147 NG/ML (0.00-0.045)
[2016-09-22] MEDS ORDERED: LEVOFLOXACIN INJ 500 MG in PREMIX 1 EACH IV SCH (17:00)
[2016-09-22] MEDS: methylPREDNISolone SOD SUC 40 MG/1 ML VIAL IV SCH (17:43)
[2016-09-22] MEDS ORDERED: diphenhydrAMINE CAP 25 MG CAPSULE PO PRN (18:11)
[2016-09-22] MEDS ORDERED: LEVOFLOXACIN 500 MG TABLET PO SCH (18:30)
[2016-09-22] MEDS ORDERED: LISINOPRIL 10 MG TABLET PO ONE (21:23)
[2016-09-23] MEDS: ALBUTEROL/IPRATROPIUM 3 ML NEB RESP TX SCH ×4 (00:10→20:14)
[2016-09-23] MEDS: methylPREDNISolone SOD SUC 40 MG/1 ML VIAL IV SCH ×4 (00:30→20:32)
[2016-09-23 06:09] LABS: Hematocrit 34.4 VOL% (42.0-52.0); Hemoglobin 11.4 GM/DL (14.0-18.0); Immature Granulocytes % 0.6 %; Immature Granulocytes Absolute 0.05 #; Lymphocytes # 0.8 10*3/uL (1.4-4.0); Lymphocytes % 8.9 % (21.2-54.2); Mean Corpuscular HGB Conc 33.1 GM/DL (32-36); Mean Corpuscular Hemoglobin 31 PG (27-34); Mean Platelet Volume 10.1 FL (9.6-12.0); Monocytes # 0.3 10*3/uL (0.11-0.8); Monocytes % 3.7 % (1.7-12.7); Neutrophils # 7.3 10*3/uL (1.4-7.4); Neutrophils % 86.8 % (38.7-73.9); Platelet Count 311 T/CUMM (130-400); Red Cell Distribution Width 13.1 % (9.3-17.3); White Blood Count 8.4 T/CUMM (4-12)
[2016-09-23 06:44] LABS: Albumin 2.8 G/DL (3.4-5.0); Calcium 8.3 MG/DL (8.5-10.1); Osmolality,Calculated 286.7 MOS/KG (273-304); Potassium 4.7 MMOL/L (3.5-5.1); Total Protein 5.7 G/DL (6.4-8.3)
[2016-09-23] MEDS: FUROSEMIDE 40 MG/4 ML VIAL IV SCH ×2 (09:26→17:00)
[2016-09-23] MEDS: levETIRAcetam 500 MG TABLET PO SCH ×2 (09:27→20:32)
[2016-09-23] MEDS: BUDESONIDE/FORMOTEROL 160-4.5 INHALER 6 GM INH SCH ×2 (09:27→22:24)
[2016-09-23] MEDS: MULTIVITAMIN (CENTRUM) TABLET PO SCH (09:27)
[2016-09-23] MEDS: ASPIRIN EC 81 MG TABLET PO SCH (09:28)
[2016-09-23] MEDS: LISINOPRIL 10 MG TABLET PO SCH (09:28)
[2016-09-23] MEDS: CARVEDILOL 3.125 MG TABLET PO SCH ×2 (09:28→20:33)
--- NOTE | 2016-09-23 12:19 | Hospitalist Progress Note ---
Assessment and Plan (1) Systolic CHF, acute on chronic Status: Acute Assessment and plan: The patient continues on therapy for systolic heart failure acute on chronic. The patient is receiving IV diuretic, FERN inhibitor for afterload reduction, and blood pressure regulation. The patient is also receiving therapy for COPD with inhaled beta agonist nebulizer and intravenous steroid and intravenous antibiotic. The patient is ready for transfer to the floor Current Visit: Yes (2) Medical non-compliance Status: Chronic Current Visit: Yes (3) Polysubstance abuse Status: Chronic Current Visit: Yes Hospitalist: Subjective Interval history: The patient has less shortness of breath today. He still has some upper airway congestion consistent with acute bronchitis. The patient is ready for transfer to the floor to continue antibiotics and diuretic. Exam - Constitutional Vitals: Period Temp Pulse Resp BP Sys/Syed Pulse Ox Last 24 Hr 97.2 F-97.9 F 58-101 12-26 93-133/60-112 92-100 Exam: Constitutional System: Minimal distress. No tremulousness. The patient has audible upper airway congestion Head: Normocephalic, atraumatic. Ears, Nose and Throat System: No evidence of Otitis or Mastoiditis. No epistaxis or discharge Eyes System: Pupils equal, round, and reactive. Extraocular muscles intact. Neck: Supple, without adenopathy, 1+ jugular venous distention. No thyromegaly , neck mass, or prior surgery apparent. Respiratory System: Chest bilateral rhonchi with upper airway congestion to auscultation. There is mild air trapping Cardiovascular System: Heart with regular rate and rhythm. No murmur. GI System: Abdomen soft, nontender. Normo active bowel sounds present. Musculoskeletal System: limbs with no pedal edema. Full distal pulses. Neurological System: No discernable sensory deficit. No aphasia Psychiatric System: Conversation is borderline rational Results - Labs CBC & BMP: 09/23/16 05:28 09/23/16 05:28 Lab Results: I have reviewed the past 24 hour labs Quality Measures - Stroke Symptom Onset Unknown: No
[2016-09-23] MEDS: ALBUTEROL 2.5 MG/3 ML NEB RESP TX PRN (16:13)
[2016-09-23] MEDS: LEVOFLOXACIN 500 MG TABLET PO SCH (17:00)
[2016-09-24] MEDS: ALBUTEROL/IPRATROPIUM 3 ML NEB RESP TX SCH ×4 (01:25→18:45)
[2016-09-24 05:29] LABS: Hematocrit 34.5 VOL% (42.0-52.0); Hemoglobin 11.8 GM/DL (14.0-18.0); Immature Granulocytes % 0.6 %; Immature Granulocytes Absolute 0.06 #; Lymphocytes % 10.1 % (21.2-54.2); Mean Corpuscular HGB Conc 34.2 GM/DL (32-36); Mean Corpuscular Hemoglobin 31 PG (27-34); Mean Corpuscular Volume 90.3 FL (87-102); Mean Platelet Volume 10.4 FL (9.6-12.0); Monocytes # 0.3 10*3/uL (0.11-0.8); Monocytes % 3.4 % (1.7-12.7); Neutrophils # 8.4 10*3/uL (1.4-7.4); Neutrophils % 85.9 % (38.7-73.9); Platelet Count 343 T/CUMM (130-400); Red Blood Count 3.82 MC/CUMM (3.8-5.5); Red Cell Distribution Width 12.8 % (9.3-17.3); White Blood Count 9.8 T/CUMM (4-12)
[2016-09-24 06:16] LABS: Albumin 3.2 G/DL (3.4-5.0); Bilirubin,Total 1.2 MG/DL (0.2-1.0); Calcium 8.7 MG/DL (8.5-10.1); Potassium 4.7 MMOL/L (3.5-5.1)
[2016-09-24] MEDS: ASPIRIN EC 81 MG TABLET PO SCH (09:02)
[2016-09-24] MEDS: FUROSEMIDE 40 MG/4 ML VIAL IV SCH (09:02)
[2016-09-24] MEDS: methylPREDNISolone SOD SUC 40 MG/1 ML VIAL IV SCH (09:02)
[2016-09-24] MEDS: MULTIVITAMIN (CENTRUM) TABLET PO SCH (09:02)
[2016-09-24] MEDS: CARVEDILOL 3.125 MG TABLET PO SCH ×2 (09:02→21:07)
[2016-09-24] MEDS: LISINOPRIL 10 MG TABLET PO SCH (09:03)
[2016-09-24] MEDS: BUDESONIDE/FORMOTEROL 160-4.5 INHALER 6 GM INH SCH ×2 (09:28→21:07)
[2016-09-24] MEDS: levETIRAcetam 500 MG TABLET PO SCH ×3 (09:28→21:32)
--- NOTE | 2016-09-24 15:27 | Hospitalist Progress Note ---
Assessment and Plan (1) Systolic CHF, acute on chronic Status: Acute Assessment and plan: The patient continues on therapy for systolic heart failure acute on chronic. The patient is receiving IV diuretic, FERN inhibitor for afterload reduction, and blood pressure regulation. I am going to change Lasix to enteral today. The patient is also receiving therapy for COPD with inhaled beta agonist nebulizer and intravenous steroid and intravenous antibiotic. I am going to reduce steroid to 40 mg daily. The patient will likely be ready for discharge home in the morning. Current Visit: Yes (2) Medical non-compliance Status: Chronic Current Visit: Yes (3) Polysubstance abuse Status: Chronic Current Visit: Yes Hospitalist: Subjective Interval history: The patient proves each day with less shortness of breath and less cough. He still has some phlegm in the upper airway which he says are due to postnasal drip. Exam - Constitutional Vitals: Period Temp Pulse Resp BP Sys/Syed Pulse Ox Last 24 Hr 97.1 F-98.4 F 58-97 17-22 102-118/62-87 96-100 Exam: Constitutional System: Minimal distress. No tremulousness. The patient has less upper airway congestion Head: Normocephalic, atraumatic. Ears, Nose and Throat System: No evidence of Otitis or Mastoiditis. No epistaxis or discharge Eyes System: Pupils equal, round, and reactive. Extraocular muscles intact. Neck: Supple, without adenopathy, trace jugular venous distention. No thyromegaly, neck mass, or prior surgery apparent. Respiratory System: Chest bilateral rhonchi with upper airway congestion to auscultation. There is mild air trapping Cardiovascular System: Heart with regular rate and rhythm. No murmur. GI System: Abdomen soft, nontender. Normo active bowel sounds present. Musculoskeletal System: limbs with no pedal edema. Full distal pulses. Neurological System: No discernable sensory deficit. No aphasia Psychiatric System: Conversation is borderline rational Results - Labs CBC & BMP: 09/24/16 04:28 09/24/16 04:28 Lab Results: I have reviewed the past 24 hour labs Quality Measures - Stroke Symptom Onset Unknown: No
[2016-09-24] MEDS: FUROSEMIDE 80 MG TABLET PO SCH (15:45)
[2016-09-24] MEDS: LEVOFLOXACIN 500 MG TABLET PO SCH (18:20)
[2016-09-24] MEDS: CEFUROXIME 500 MG TABLET PO SCH (21:07)
[2016-09-25] MEDS: ALBUTEROL/IPRATROPIUM 3 ML NEB RESP TX SCH ×2 (01:18→07:12)
[2016-09-25 03:48] LABS: Calcium 8.4 MG/DL (8.5-10.1); Magnesium 2.3 MG/DL (1.8-2.4); Potassium 4.3 MMOL/L (3.5-5.1)
[2016-09-25 07:20] VITALS: BP 115/81
--- NOTE | 2016-09-25 07:56 | Discharge Summary ---
Hospital Course - Hospital Course Hospital Course: Mr. Mora is a 61-year-old man with systolic congestive heart failure. He was admitted to the hospital with shortness of breath and cough. The patient was treated by restarting his home medications including antihypertensive regimen, heart failure regimen, and diuretic medications. The patient does not afford his medications as an outpatient. The patient improved over 5 days period of time and has reached maximum medical benefit. The patient's sodium potassium and creatinine are all improved and is ready for discharge home. The patient was treated for acute bronchitis with oral antibiotic. The patient has clear chest heart with regular rate and rhythm and abdomen soft. Follow-up should be with his usual primary care physician. - Time spent with patient Time with patient DS: Less than 30 minutes Diagnosis - Discharge Diagnosis (1) Systolic CHF, acute on chronic Status: Chronic (2) Medical non-compliance Status: Chronic (3) Polysubstance abuse Status: Chronic Discharge Plan - Discharge Data Disposition: Disch To Home/Self Care Condition at Discharge: Stable Discharge Diet: heart healthy Activity: resume usual activities as tolerated - Discharge Medications New Carvedilol [Coreg] 3.125 mg PO BID #100 tablet Cefuroxime Tab [Ceftin] 500 mg PO BID #10 tablet Continue Budesonide/Formoterol 160-4.5 [Symbicort 160-4.5] 2 puff INH BID #1 inhaler Aspirin [Ecotrin] 81 mg PO DAILY #30 tablet Multivitamin with Minerals [One Daily Complete] 1 each PO DAILY #100 tablet Albuterol Inhaler [Proventil Inhaler] 2 puff INH Q4H PRN #1 inhaler PRN Reason: Shortness Of Breath/Wheezing Carvedilol [Coreg] 3.125 mg PO BID #60 tablet Furosemide Tab [Lasix Tab] 80 mg PO BID DIURETIC #60 tablet Lisinopril 10 mg PO DAILY #60 tablet Discontinued levETIRAcetam TAB [Keppra Tab] 500 mg PO BID #60 tablet - Follow Up or Referral - Forms/Instructions Exam - Constitutional Vitals: Period Temp Pulse Resp BP Sys/Syed Pulse Ox Last 24 Hr 97.2 F-98.1 F 73-93 17-20 95-115/55-81 94-100 Discharge Results Labs on day of discharge: Labs from last 24 hours 09/25/16 09/25/16 02:05 02:05 Sodium 136 Potassium 4.3 Chloride 96 L Carbon Dioxide 32 Anion Gap 12.3 BUN 32 H Creatinine 1.10 GFR Calculation 74 BUN/Creatinine Ratio 29.00 H Glucose 113 H Calculated Osmolality 279.0 Calcium 8.4 L Magnesium 2.3 B-Natriuretic Peptide 1264 H DS: Provider Date of admission: 09/21/16 18:32 Primary care physician: . No PCP Attending physician on admission: Rei Medrano MD Consults: 09/21/16 20:59 Consult to Pharmacy [CONS] Routine Reason for Pharmacy Consult: Adjust Meds Renal Funct Discharging clinician: Arcenio Cano MD
[2016-09-25] MEDS ORDERED: methylPREDNISolone SOD SUC 40 MG/1 ML VIAL IV SCH (09:00)
[2016-09-25] MEDS: LISINOPRIL 10 MG TABLET PO SCH (09:17)
[2016-09-25] MEDS: FUROSEMIDE 80 MG TABLET PO SCH (09:17)
[2016-09-25] MEDS: MULTIVITAMIN (CENTRUM) TABLET PO SCH (09:17)
[2016-09-25] MEDS: CEFUROXIME 500 MG TABLET PO SCH (09:17)
[2016-09-25] MEDS: ASPIRIN EC 81 MG TABLET PO SCH (09:17)
[2016-09-25] MEDS: levETIRAcetam 500 MG TABLET PO SCH (09:18)
[2016-09-25] MEDS: BUDESONIDE/FORMOTEROL 160-4.5 INHALER 6 GM INH SCH (09:18)
[2016-09-25] MEDS: CARVEDILOL 3.125 MG TABLET PO SCH (10:11)
== END 2016-09-25 11:22 | disposition home or self-care (01) | DRG 292 ==
LOC: N.ED 15:22 → MERGE 18:32 → N.EDINP 18:32 → SUATTDRO 18:32 → N.ICU 20:28 → N.5E 09-23 15:34
PROVIDERS: ADMIT Internal Medicine Pulmonary Disease; ATTEND Internal Medicine

== ENCOUNTER 2016-10-03 14:06 | Inpatient (IN) ==
[2016-10-03] MEDS ORDERED: SODIUM CHLORIDE 0.9% 1,000 ML IV STA (14:24)
[2016-10-03] MEDS ORDERED: PHENobarbital 130 MG/1 ML VIAL IV STA ×2 (14:24→14:40)
[2016-10-03] MEDS ORDERED: PIPERACILLIN/TAZOBACTAM 3,375 MG in SODIUM CHLORIDE 0.9% 100 ML IV STA (14:38)
[2016-10-03] MEDS ORDERED: SODIUM CHLORIDE 0.9% IV ONE (14:45)
[2016-10-03] MEDS ORDERED: PHENOBARBITAL IV ONE (14:45)
[2016-10-03] MEDS ORDERED: DEXAMETHASONE 10 MG/1 ML VIAL IV STA (14:46)
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
[2016-10-03] MEDS ORDERED: MIDAZOLAM 2 MG/2 ML VIAL ONE (14:56)
--- NOTE | 2016-10-03 14:59 | CT Report ---
CT brain Indication: Headache Comparison: None available Technique: Axial CT imaging of the brain is performed without contrast with 3 mm increments. Findings: No evidence of hemorrhage, mass mass effect midline shift or acute infarct seen. Focal decreased density and volume loss is seen in the right posterior frontal lobe/occipital lobe junction consistent with previous infarct. Remaining brain parenchyma attenuation and differentiation appears within normal limits. The ventricles and cisterns are normal in caliber. No cranial or skull base abnormality is identified. Impression: No evidence of acute infarct or acute process demonstrated. This CT exam was performed using one or more the following dose reduction techniques: Automated exposure control, adjustment of the MA and/or KV according to patient size, or use of iterative reconstruction technique. PROCEDURE INTERPRETED AT [facility] DEPARTMENT OF RADIOLOGY Final Report Signed by: Dr. Avel Castillo
[2016-10-03 15:19] LABS: Basophils % 0.2 % (0.0-0.8); Eosinophils # 0.1 10*3/uL (0.0-0.87); Eosinophils % 0.9 % (0.00-10.9); Hematocrit 33.9 VOL% (42.0-52.0); Hemoglobin 11.2 GM/DL (14.0-18.0); Immature Granulocytes % 1.2 %; Immature Granulocytes Absolute 0.08 #; Lymphocytes # 1.7 10*3/uL (1.4-4.0); Lymphocytes % 25.8 % (21.2-54.2); Mean Corpuscular Hemoglobin 32 PG (27-34); Mean Corpuscular Volume 97.1 FL (87-102); Mean Platelet Volume 9.4 FL (9.6-12.0); Monocytes # 0.5 10*3/uL (0.11-0.8); Monocytes % 7.4 % (1.7-12.7); Neutrophils # 4.3 10*3/uL (1.4-7.4); Neutrophils % 64.5 % (38.7-73.9); Platelet Count 330 T/CUMM (130-400); Red Blood Count 3.49 MC/CUMM (3.8-5.5); Red Cell Distribution Width 14.2 % (9.3-17.3); White Blood Count 6.6 T/CUMM (4-12)
[2016-10-03 15:36] LABS: ABG Base Excess -2.8 MMOL/L (-2.5-2.5); ABG HCO3 22.1 MMOL/L (20-26); ABG Oxygen Saturation 99.7 % (95-100); ABG PCO2 47.7 MM HG (35-48); ABG PH 7.306 (7.35-7.45); ABG TCO2 21.6 MMOL/L (23-27)
[2016-10-03 15:43] LABS: Alanine Aminotransferase 37 U/L (16-61); Albumin 3.3 G/DL (3.4-5.0); Alkaline Phosphatase 166 U/L (45-117); Aspartate Amino Transferase 44 U/L (0-37); Blood Urea Nitrogen 13 MG/DL (7-18); Calcium 8.1 MG/DL (8.5-10.1); Glucose 123 MG/DL (74-106); Magnesium 1.9 MG/DL (1.8-2.4); Osmolality,Calculated 288.7 MOS/KG (273-304); Potassium 4.7 MMOL/L (3.5-5.1); Sodium 145 MMOL/L (136-145); Total Protein 6.2 G/DL (6.4-8.3)
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
[2016-10-03] MEDS ORDERED: PROPOFOL 1,000 MG/100 ML BOTTLE IV ONE (15:56)
[2016-10-03] MEDS ORDERED: ALBUTEROL 2.5 MG/3 ML NEB RESP TX PRN (15:59)
[2016-10-03] MEDS ORDERED: ONDANSETRON 4 MG/2 ML VIAL IV PRN (15:59)
[2016-10-03] MEDS ORDERED: MORPHINE 2 MG/1 ML SYRINGE IV PRN (15:59)
[2016-10-03] MEDS ORDERED: SODIUM CHLORIDE 0.45% 1,000 ML IV SCH (16:00)
[2016-10-03] MEDS ORDERED: ENOXAPARIN 40 MG/0.4 ML SYRINGE SUBCUT SCH (16:00)
[2016-10-03] MEDS ORDERED: PANTOPRAZOLE 40 MG VIAL IV SCH (16:00)
[2016-10-03] MEDS ORDERED: PROPOFOL 1,000 MG/100 ML BOTTLE IV SCH (16:00)
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
[2016-10-03 16:14] LABS: PT Patient Result 10.6 SECS
[2016-10-03] MEDS ORDERED: GLUCAGON 1 MG VIAL IM PRN (16:19)
[2016-10-03] MEDS ORDERED: DEXTROSE 50% 25 GM/50 ML VIAL IV PRN (16:19)
[2016-10-03] MEDS ORDERED: DEXAMETHASONE 10 MG/1 ML VIAL ONE (16:44)
[2016-10-03] MEDS ORDERED: PIPERACILLIN/TAZOBACTAM 3,375 MG VIAL IV ONE (16:45)
--- NOTE | 2016-10-03 16:55 | Ultrasound Report ---
Exam: Bilateral lower extremity venous Doppler ultrasound Comparison: 09/22/2016 Clinical history: Leg swelling Technique: Duplex scan of the lower extremity veins using B-mode/grayscale scaled imaging and Doppler spectral analysis and color flow. Findings: Major venous structures of the lower extremities demonstrate a normal course and caliber. Normal color-flow study and spectral analysis. There is normal compression and augmentation of bilateral common femoral, superficial femoral and popliteal veins. Occluding thrombus in both greater saphenous veins. Impression: Occluding thrombus in both greater saphenous veins. These findings were discussed with Dr. Jennings by the technologist at 4:45 PM. Critical test results Ultrasound images were captured and stored. PROCEDURE INTERPRETED AT [facility] DEPARTMENT OF RADIOLOGY Final Report Signed by: Dr. Jennifer Patel
[2016-10-03 17:53] LABS: Apearance,Urine CLEAR (Clear); Bilirubin,Urine Negative (Negative); Blood, Urine Negative (Negative); Calcium Oxalate Crystals,Urine Occasional /HPF (Few); Glucose,Urine (UA) Negative (Negative); Ketones,Urine Negative (Negative); Mucus,Urine Occasional /LPF (Occasional); Nitrite,Urine Negative (Negative); Protein,Urine Negative; RBC,Urine <1 /HPF (0-4); Urine Color Straw (Yellow); Urine Specific Gravity 1.008 (1.001-1.035); Urine Urobilinogen < 2.0 EU/DL (0.2-1.0); WBC,Urine 1 /HPF (0-6)
[2016-10-03] MEDS ORDERED: INSULIN REGULAR 100 UNIT/ML SUBCUT SCH (18:00)
[2016-10-03 18:01] LABS: Barbiturates Screen,Urine Positive (Negative); Benzodiazepines Screen,Urine Positive (Negative); Cannabinoid Screen,Urine Positive (Negative); Opiate Screen,Urine Negative (Negative); Phencyclidine Screen,Urine Negative (Negative)
[2016-10-03] MEDS ORDERED: ETOMIDATE 20 MG/10 ML VIAL IV ONE (18:35)
[2016-10-03] MEDS ORDERED: VECURONIUM 10 MG VIAL IV ONE (18:35)
[2016-10-03] MEDS ORDERED: ALBUTEROL/IPRATROPIUM 3 ML NEB RESP TX SCH (19:00)
[2016-10-03] MEDS ORDERED: ALBUTEROL 2.5 MG/3 ML NEB RESP TX SCH (19:00)
[2016-10-03] MEDS: PHENobarbital 130 MG/1 ML VIAL IV SCH (20:10)
[2016-10-03] MEDS: ENOXAPARIN 60 MG/0.6 ML SYRINGE SUBCUT SCH (20:56)
[2016-10-04] MEDS: PIPERACILLIN/TAZOBACTAM 3,375 MG in SODIUM CHLORIDE 0.9% 100 ML IV SCH ×4 (00:43→23:50)
[2016-10-04 03:47] LABS: ABG Base Excess 1.5 MMOL/L (-2.5-2.5); ABG HCO3 25.8 MMOL/L (20-26); ABG PCO2 32.3 MM HG (35-48); ABG PH 7.487 (7.35-7.45); ABG TCO2 21.9 MMOL/L (23-27)
[2016-10-04 05:49] LABS: Basophils % 0.1 % (0.0-0.8); Hematocrit 33.6 VOL% (42.0-52.0); Hemoglobin 11.2 GM/DL (14.0-18.0); Immature Granulocytes % 0.5 %; Immature Granulocytes Absolute 0.08 #; Lymphocytes # 1.2 10*3/uL (1.4-4.0); Lymphocytes % 8.4 % (21.2-54.2); Mean Corpuscular HGB Conc 33.3 GM/DL (32-36); Mean Corpuscular Hemoglobin 32 PG (27-34); Mean Corpuscular Volume 95.7 FL (87-102); Monocytes # 0.5 10*3/uL (0.11-0.8); Monocytes % 3.4 % (1.7-12.7); Neutrophils # 12.9 10*3/uL (1.4-7.4); Neutrophils % 87.6 % (38.7-73.9); Platelet Count 291 T/CUMM (130-400); Red Blood Count 3.51 MC/CUMM (3.8-5.5); Red Cell Distribution Width 14.1 % (9.3-17.3); White Blood Count 14.8 T/CUMM (4-12)
[2016-10-04 06:09] LABS: Hypochromasia Slight; Platelet Estimate Normal
[2016-10-04 06:21] LABS: Albumin 2.9 G/DL (3.4-5.0); Bilirubin,Total 1.6 MG/DL (0.2-1.0); Calcium 8.2 MG/DL (8.5-10.1); Osmolality,Calculated 289.8 MOS/KG (273-304); Potassium 4.5 MMOL/L (3.5-5.1); Total Protein 5.5 G/DL (6.4-8.3)
[2016-10-04 06:22] LABS: Phosphorous 3.9 MG/DL (2.5-4.9); Prealbumin 21.9 MG/DL (20-40)
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
[2016-10-04] MEDS: PHENobarbital 130 MG/1 ML VIAL IV SCH (06:54)
[2016-10-04] MEDS: PROPOFOL 1,000 MG/100 ML BOTTLE IV SCH ×2 (06:55→19:21)
--- NOTE | 2016-10-04 08:11 | EKG Report ---
Stationary ECG Study [facility] ER Test Date: 10/03/2016 3:02:37 PM Pat Name: EBER ARREOLA Department: Room: 128 Gender: M Research And Development Researcher: [id number] : 1955 Requested by: Nikunj Villafana Order Number: [id number] Reading MD: STALIN GIANG Intervals Kite Rate: 87 P: 82 SD: 152 QRS: -73 QRSD: 158 T: 100 QT: 441 QTc: 486 Interpretive Statements SINUS RHYTHM POSSIBLE LEFT ATRIAL ENLARGEMENT MARKED LEFT AXIS DEVIATION LEFT BUNDLE BRANCH BLOCK Electronically Signed On 10-04-16 18:14:00 CDT by STALIN GIANG [email or web address]
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
[2016-10-04] MEDS ORDERED: PANTOPRAZOLE 40 MG VIAL IV ONE (08:43)
[2016-10-04] MEDS: PANTOPRAZOLE 40 MG VIAL IV SCH (08:51)
--- NOTE | 2016-10-04 08:59 | Operative Note ---
Date of procedure: 10/04/16 Pre-op diagnosis: Aspiration pneumonia Post-op diagnosis: same Procedure: The patient came in yesterday after seizing and had to be intubated. He had a considerable left lung infiltrate. A therapeutic bronchoscopy will be done to assess airways and clear airways. The patient is intubated on the ventilator in the ICU. He is sedated with the program. Procedure: The fiberoptic bronchoscope was passed to the ET tube into the airways. The bronchopulmonary segments were identified and specimens obtained. Findings: The ET tube is in good position in the trachea. The main bronchi are open. The right upper lobe, right middle lobe, right lower lobe are all open. The left upper lobe, lingula, left lower lobe are open. The airways looked unremarkable and there are no endobronchial lesions seen. The left lower lobe was washed and cleared of secretions and washings were sent for culture. There were no signs of significant aspiration. He tolerated the procedure well without problems. Impression: Likely aspiration with left lung infiltrate. Plan: We will continue antibiotics and ventilatory support. Anesthesia: conscious sedation Surgeon / Physician: Darren Sawyer Estimated blood loss: none Specimens: other (Washings were sent for culture) Condition: stable Disposition: ICU Results - Labs CBC & BMP: 10/04/16 05:26 10/04/16 05:25
[2016-10-04] MEDS: ENOXAPARIN 60 MG/0.6 ML SYRINGE SUBCUT SCH ×2 (09:05→20:09)
--- NOTE | 2016-10-04 09:42 | Hospitalist Progress Note ---
Assessment and Plan (1) Status epilepticus Status: Acute Assessment and plan: 1)status epilepticus- no overt seizures since admission, and he was alert when diprivan was turned off. Dr Arroyo to see this morning. He has a seizure history and has been on Keppra but it appears he wasn't buying or taking it recently. On phenobarb now- loaded in ER. EEG pending. 2)acute respiratory failure- due to acute on chronic systolic CHF. CXR better with positive pressure of vent. begin some diuresis this morning, though he is near euvolemic so will monitor closely. restart coreg, asa. 3)tracheal stenosis suspected from intubation 4)B LE great saphenous vein clot- on lovenox at treatment doses for now. 5)UDS- positive for benzos, cannabinoids, and barbituates (after phenobarb loading). 6)elevated glucose 7)nutrition- on tube feeds 8)transaminitis- resolved this morning. Current Visit: Yes (2) Acute respiratory failure Status: Acute Current Visit: Yes (3) Aspiration pneumonia Status: Acute Current Visit: Yes Hospitalist: Subjective Interval history: MR Mora had no more seizures last night. He remained comfortable on the vent. He had a bronch this morning that did not show significant aspiration injury as we originally thought. His CXR is much improved. His UOP is diminished. Exam - Constitutional Vitals: Period Temp Pulse Resp BP Sys/Syed Pulse Ox Last 24 Hr 97.2 F-99.8 F 82-125 0-32 108-173/77-118 99-100 General appearance: normal weight, no acute distress (sedated on vent) - Eye Eye exam: Present: EOMI Pupils: Present: MAAME - Respiratory Respiratory exam: Present: rales (few rales at back, no wheezing. ) - Cardiovascular Cardiovascular exam: Present: regular rate and rhythm - GI/Abdominal GI/Abdominal exam: Present: normal bowel sounds, soft. Absent: tenderness - Extremities Exam Extremities exam: Present: edema (much less than on admit yesterday. ) - Neurological Exam Neurological exam: Present: other (when diprivan off, he is awake and alert. ) - Skin Skin exam: Present: warm, dry Results - Labs CBC & BMP: 10/04/16 05:26 10/04/16 05:25 Lab Results: I have reviewed the past 24 hour labs
[2016-10-04] MEDS: FUROSEMIDE 40 MG/4 ML VIAL IV SCH (13:03)
[2016-10-04] MEDS ORDERED: DEXTROSE 50% 25 GM/50 ML VIAL IV PRN (14:50)
[2016-10-04] MEDS ORDERED: GLUCAGON 1 MG VIAL IM PRN (14:50)
[2016-10-04] MEDS ORDERED: PHENYTOIN INJ 1,000 MG in SODIUM CHLORIDE 0.9% 100 ML IV ONE (15:53)
--- NOTE | 2016-10-04 16:21 | Neurology Progress Note ---
Neurology - PN : Subjective Interval history: Patient is unable to provide any history. History basically obtained from the chart. 61 years old -[place] gentleman who was admitted to the hospital with seizure disorder. Apparently he has a history of seizures due to alcohol and drug related. He was started on Keppra as an outpatient but he could not afford it so did not get medication filled. He came in with back to back seizures. He is on vent. He was loaded with phenobarbital. Exam (Progress Note) - Constitutional Vitals: Period Temp Pulse Resp BP Sys/Syed Pulse Ox Last 24 Hr 97.2 F-99.8 F 78-125 0-32 107-173/77-118 98-100 Exam: GENERAL: Patient is in no acute distress. NECK: Neck is supple. There is no JVD. No carotid bruits present. No thyroid masses. CVS: First and second heart sounds are normal. There is no S3 present. Regular rate and rhythm. RESPIRATORY: Lungs are clear to auscultation without any rales or rhonchi. ABDOMEN: Soft and non-tender. Bowel sounds are present. There is no hepatosplenomegaly. EXT: There is no palpable edema. Peripheral pulses are present. Skin: No rashes Central Nervous system: General: Unresponsive Speech: On vent Comprehension: On vent Facial expressions: Normal Cranial Nerves: Pupils are sluggish but reactive. Doll's head eye movements are positive. No facial asymmetry is seen Motor: Bulk and Tone is normal. Strength cannot be assessed Sensory: Cannot be assessed Reflexes: 1+ and symmetrical Cerebellar function: Cannot be assessed Toes: Equivocal Gait: Cannot be assessed Results - Labs CBC & BMP: 10/04/16 05:26 10/04/16 05:25 Assessment and Plan (1) Seizure disorder Status: Acute Assessment and plan: Stop phenobarbital Dilantin 1 g IV followed by 100 mg IV q8 Agree with EEG Thank you for the consult Current Visit: Yes
--- NOTE | 2016-10-04 17:35 | ECHO Report ---
Andrea Mora Exam Date: 10/04/2016 08:14 Referring Physician: Technologist: Danyelle Gaming Age: 61 Ht (in): 70 Wt (lb): 127 Gender: M Exam Location: [facility] Echo Indications: status epilepticus, acute resp. failure, aspiration pneumonia, ARDS BP: 108 / 77 HR: 86 Rhythm: Sinus Technical Quality: IMPRESSIONS EF 15-20 %. Severe global hypokinesis. Grade III/IV diastolic dysfunction (restrictive filling pattern), severely elevated filling pressures. Normal right ventricular size. The right atrium is mildly enlarged. The left atrium is mildly enlarged. Mildly thickened mitral valve. Trace mitral valve regurgitation. Aortic valve sclerosis. Trace aortic valve regurgitation. Morphologically normal tricuspid valve. PAP40 mmHG. Trace pulmonary valve regurgitation. No pericardial effusion. Normal size aortic root and proximal ascending aorta. MEASUREMENTS (Male / Female) Normal Values 2D ECHO LV Diastolic Diameter PLAX 5.4 cm 4.2 - 5.9 / 3.9 - 5.3 cm LV Systolic Diameter PLAX 5.1 cm LV Fractional Shortening PLAX 5.7 % IVS Diastolic Thickness 1.1 cm 0.6 - 1.0 / 0.6 - 0.9 cm LVPW Diastolic Thickness 1.0 cm 0.6 - 1.0 / 0.6 - 0.9 cm RV Internal Dim ED PLAX 2.0 cm Aortic Root Diameter 2.3 cm LA Systolic Diameter LX 3.5 cm 3.0 - 4.0 / 2.7 - 3.8 cm DOPPLER TR Peak Velocity 235.0 cm/s TR Peak Gradient 22.1 mmHg FINDINGS Left Ventricle EF 15-20 %. Severe global hypokinesis.Grade III/IV diastolic dysfunction (restrictive filling pattern), severely elevated filling pressures. Right Ventricle Normal right ventricular size. Right Atrium The right atrium is mildly enlarged. Left Atrium The left atrium is mildly enlarged. Mitral Valve Mildly thickened mitral valve. Trace mitral valve regurgitation. Aortic Valve aortic valve sclerosis. Trace aortic valve regurgitation. Tricuspid Valve Mild tricuspid valve regurgitation. Morphologically normal tricuspid valve.PAP40 mmHG. Pulmonic Valve Morphologically normal pulmonic valve. Trace pulmonary valve regurgitation. Pericardium No pericardial effusion. Aorta Normal size aortic root and proximal ascending aorta. Rigo Sathya (Electronically Signed) Final Date: 04 Oct 2016 17:34
[2016-10-04] MEDS: PHENYTOIN 100 MG/2 ML VIAL IV SCH ×2 (19:05→23:50)
[2016-10-04] MEDS: INSULIN REGULAR 100 UNIT/ML SUBCUT SCH (19:07)
[2016-10-04] MEDS: CARVEDILOL 3.125 MG TABLET PO SCH (20:10)
--- NOTE | 2016-10-05 00:18 | Electroencephalogram ---
DATE OF STUDY: HISTORY: A 61-year-old patient with a history of seizure. INTRODUCTION: A digital EEG was performed using the standard 10/20 system of electrode placement wi th one channel of EKG monitoring. Photic stimulation is performed. DESCRIPTION OF RECORD: The background is somewhat disorganized, consists of 7-8 hertz low amplitude bilaterally symmetrical rhythm. Photic stimulation does not elicit a drivin g response. There are no focal, sharp-wave, spike or wave activity seen. Heart rate is 66 beats per minute. IMPRESSION: ABNORMAL EEG DUE TO GENERALIZED SLOWING. CLINICAL CORRELATION: This record is supportive of mild encephalopathy, which could be secondary to postictal state, posthypoxic state, metabolic disorder, diffuse PROCUREMENT TECHNICIAN insult, or increased intracrani al pressure. No epileptiform/seizure activity seen. Clinical correlation is suggested.
[2016-10-05] MEDS: INSULIN REGULAR 100 UNIT/ML SUBCUT SCH ×4 (00:30→17:47)
[2016-10-05 03:30] LABS: ABG Base Excess 4.2 MMOL/L (-2.5-2.5); ABG HCO3 28.2 MMOL/L (20-26); ABG Oxygen Saturation 99.8 % (95-100); ABG PH 7.559 (7.35-7.45); ABG TCO2 23.2 MMOL/L (23-27); Allen Test Positive; Pt O2 Delivery Device Ventilator
[2016-10-05 05:28] LABS: Basophils % 0.2 % (0.0-0.8); Eosinophils % 0.1 % (0.00-10.9); Hematocrit 32.6 VOL% (42.0-52.0); Immature Granulocytes % 0.4 %; Immature Granulocytes Absolute 0.04 #; Lymphocytes # 3.3 10*3/uL (1.4-4.0); Lymphocytes % 31.5 % (21.2-54.2); Mean Corpuscular HGB Conc 33.7 GM/DL (32-36); Mean Corpuscular Hemoglobin 32 PG (27-34); Mean Corpuscular Volume 93.7 FL (87-102); Mean Platelet Volume 10.5 FL (9.6-12.0); Monocytes # 0.8 10*3/uL (0.11-0.8); Monocytes % 7.9 % (1.7-12.7); Neutrophils # 6.3 10*3/uL (1.4-7.4); Neutrophils % 59.9 % (38.7-73.9); Platelet Count 259 T/CUMM (130-400); Red Blood Count 3.48 MC/CUMM (3.8-5.5); Red Cell Distribution Width 14.3 % (9.3-17.3); White Blood Count 10.4 T/CUMM (4-12)
[2016-10-05 05:47] LABS: Albumin 2.7 G/DL (3.4-5.0); Bilirubin,Total 1.9 MG/DL (0.2-1.0); Calcium 8.1 MG/DL (8.5-10.1); Osmolality,Calculated 288.8 MOS/KG (273-304); Potassium 4.1 MMOL/L (3.5-5.1); Total Protein 5.3 G/DL (6.4-8.3)
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
[2016-10-05] MEDS: PROPOFOL 1,000 MG/100 ML BOTTLE IV SCH ×3 (06:42→21:34)
--- NOTE | 2016-10-05 07:58 | Pulmonology Progress Note ---
Pulmonary - PN: Subj Interval history: Patient is a 61-year-old black man that had seizures and was intubated. He had left lung pneumonia and likely aspirated. He has not had any further seizures now. His chest x-ray is improving. He did not try to breathe any on CPAP. His Ph is too high and will adjust his ventilator. Overall he seems to be relatively stable Exam (Progress Note) - Constitutional Vitals: Period Temp Pulse Resp BP Sys/Syed Pulse Ox Last 24 Hr 97.4 F-99.1 F 67-119 12-28 71-149/53-112 98-100 Exam: General appearance: normal weight, other (He appears stable on the ventilator. He is still quite sedated.) - Head Head exam: Present: normal inspection, normocephalic - Eye Eye exam: Present: EOMI. Absent: scleral icterus Pupils: Present: MAAME - ENT ENT exam: Present: normal exam, other (ET tube is in good position) - Neck Neck exam: Present: normal inspection. Absent: lymphadenopathy, thyromegaly - Respiratory Respiratory exam: Present: His lungs have good breath sounds and I do not hear any definite wheezing or rhonchi now. - Cardiovascular Cardiovascular exam: Present: regular rate and rhythm. Absent: gallop, systolic murmur - GI/Abdominal GI/Abdominal exam: Present: normal bowel sounds, soft. Absent: distended, organomegaly, tenderness - Extremities Exam Extremities exam: Present: edema (He has mild edema in the lower extremities). Absent: calf tenderness - Neurological Exam Neurological exam: Present: other (He is responding now. He has not had any further seizures. He is sedated for the most part.) - Skin Skin exam: Present: warm, dry Results - Labs CBC & BMP: 10/05/16 04:22 10/05/16 04:22 Labs: The PO2 is 149 with a PCO2 of 29 and a pH of 7.55 - Diagnostic Findings Procedure: Chest x-ray: image reviewed by me, report reviewed by me (Chest x- ray shows much improvement in the left lung infiltrate.) Assessment and Plan (1) Status epilepticus Status: Acute Assessment and plan: The patient has seizures and is getting medications now. He appears to be stable at present. He has not had any further seizures. His EEG is pending. Current Visit: Yes (2) Acute respiratory failure Status: Acute Assessment and plan: The patient had to be intubated early on with respiratory distress. His oxygenation is improving. His left lung infiltrate is better. Current Visit: Yes (3) Aspiration pneumonia Status: Acute Assessment and plan: The patient has been treated for pneumonia as infiltrates are clearing. Current Visit: Yes
[2016-10-05] MEDS: PIPERACILLIN/TAZOBACTAM 3,375 MG in SODIUM CHLORIDE 0.9% 100 ML IV SCH ×2 (08:38→16:33)
[2016-10-05] MEDS: PHENYTOIN 100 MG/2 ML VIAL IV SCH ×2 (08:38→16:32)
[2016-10-05] MEDS: PANTOPRAZOLE 40 MG VIAL IV SCH (08:39)
[2016-10-05] MEDS: ENOXAPARIN 60 MG/0.6 ML SYRINGE SUBCUT SCH ×2 (08:40→21:34)
[2016-10-05] MEDS: FUROSEMIDE 40 MG/4 ML VIAL IV SCH (08:40)
[2016-10-05] MEDS: CARVEDILOL 3.125 MG TABLET PO SCH ×2 (08:41→21:34)
[2016-10-05] MEDS: ASPIRIN CHEW 81 MG TABLET PO SCH (08:41)
--- NOTE | 2016-10-05 09:34 | Hospitalist Progress Note ---
Assessment and Plan (1) Status epilepticus Status: Acute Assessment and plan: 1)status epilepticus- no overt seizures since admission, and he is alert when diprivan is decreased. Dr Arroyo changed his med to dilantin. He has a seizure history and has been on Keppra but it appears he wasn't buying or taking it recently. Phenobarb loaded in ER. EEG pending. 2)acute respiratory failure- due to acute on chronic systolic CHF and aspiration during seizures. CXR better with positive pressure of vent. Started some lasix yesterday with improved LE edema today, 1 liter negative. also on coreg, asa. On Zosyn for aspiration pneumonia. cultures pending from bronch. 3)tracheal stenosis suspected at time of intubation 4)B LE great saphenous vein clot- on lovenox at treatment doses for now. 5)UDS- positive for benzos, cannabinoids, and barbituates (after phenobarb loading). 6)elevated glucose- use SSI if needed. check HGBA1C 7)nutrition- on tube feeds 8)transaminitis- resolved this morning. Current Visit: Yes (2) Acute respiratory failure Status: Acute Current Visit: Yes (3) Aspiration pneumonia Status: Acute Current Visit: Yes Hospitalist: Subjective Interval history: Mr Mora has had no seizures since admission. He is stable on vent but did not CPAP well due to high pH. CXR looks improved- he had aspiration pneumonia and acute CHF on chronic severe systolic dysfunction. Exam - Constitutional Vitals: Period Temp Pulse Resp BP Sys/Syed Pulse Ox Last 24 Hr 97.4 F-99.1 F 67-119 11-28 71-149/53-112 98-100 General appearance: normal weight, no acute distress (sedated) - Eye Eye exam: Present: EOMI Pupils: Present: MAAME - Respiratory Respiratory exam: Present: rales (at both bases) - Cardiovascular Cardiovascular exam: Present: regular rate and rhythm - GI/Abdominal GI/Abdominal exam: Present: normal bowel sounds, soft. Absent: tenderness - Extremities Exam Extremities exam: Present: edema (lower extremity edema improved.) - Skin Skin exam: Present: warm, dry Results - Labs CBC & BMP: 10/05/16 04:22 10/05/16 04:22 Lab Results: I have reviewed the past 24 hour labs
--- NOTE | 2016-10-05 14:54 | Neurology Progress Note ---
Neurology - PN : Subjective Interval history: Patient seems to be doing okay. He is waking up when he is off of sedation. Follow simple command. Exam (Progress Note) - Constitutional Vitals: Period Temp Pulse Resp BP Sys/Syed Pulse Ox Last 24 Hr 97.3 F-99.1 F 67-106 8-17 71-116/53-90 97-100 Exam: GENERAL: Patient is in no acute distress. NECK: Neck is supple. There is no JVD. No carotid bruits present. No thyroid masses. CVS: First and second heart sounds are normal. There is no S3 present. Regular rate and rhythm. RESPIRATORY: Lungs are clear to auscultation without any rales or rhonchi. ABDOMEN: Soft and non-tender. Bowel sounds are present. There is no hepatosplenomegaly. EXT: There is no palpable edema. Peripheral pulses are present. Skin: No rashes Central Nervous system: General: Unresponsive due to sedation Speech: On vent Comprehension: On vent Facial expressions: Normal Cranial Nerves: Pupils are sluggish but reactive. Doll's head eye movements are positive. No facial asymmetry is seen Motor: Bulk and Tone is normal. Strength cannot be assessed Sensory: Cannot be assessed Reflexes: 1+ and symmetrical Cerebellar function: Cannot be assessed Toes: Equivocal Gait: Cannot be assessed Results - Labs CBC & BMP: 10/05/16 04:22 10/05/16 04:22 Assessment and Plan (1) Seizure disorder Status: Acute Assessment and plan: Continue Dilantin Check Dilantin level in the morning Current Visit: Yes
[2016-10-06] MEDS: INSULIN REGULAR 100 UNIT/ML SUBCUT SCH ×4 (01:44→17:38)
[2016-10-06] MEDS: PIPERACILLIN/TAZOBACTAM 3,375 MG in SODIUM CHLORIDE 0.9% 100 ML IV SCH ×3 (01:45→16:07)
[2016-10-06] MEDS: PHENYTOIN 100 MG/2 ML VIAL IV SCH ×3 (01:45→16:07)
[2016-10-06 03:57] LABS: ABG Base Excess 3.4 MMOL/L (-2.5-2.5); ABG HCO3 27.5 MMOL/L (20-26); ABG Oxygen Saturation 99.4 % (95-100); ABG PCO2 42.2 MM HG (35-48); ABG PH 7.431 (7.35-7.45); ABG TCO2 25.2 MMOL/L (23-27); Allen Test Positive; Pt O2 Delivery Device Ventilator
[2016-10-06 05:36] LABS: Basophils % 0.5 % (0.0-0.8); Eosinophils % 0.2 % (0.00-10.9); Hematocrit 31.8 VOL% (42.0-52.0); Hemoglobin 10.3 GM/DL (14.0-18.0); Immature Granulocytes % 0.2 %; Immature Granulocytes Absolute 0.02 #; Lymphocytes # 2.9 10*3/uL (1.4-4.0); Lymphocytes % 34.7 % (21.2-54.2); Mean Corpuscular HGB Conc 32.4 GM/DL (32-36); Mean Corpuscular Hemoglobin 31 PG (27-34); Mean Corpuscular Volume 96.1 FL (87-102); Mean Platelet Volume 10.6 FL (9.6-12.0); Monocytes # 0.8 10*3/uL (0.11-0.8); Monocytes % 8.9 % (1.7-12.7); Neutrophils # 4.7 10*3/uL (1.4-7.4); Neutrophils % 55.5 % (38.7-73.9); Platelet Count 282 T/CUMM (130-400); Red Blood Count 3.31 MC/CUMM (3.8-5.5); Red Cell Distribution Width 14.7 % (9.3-17.3); White Blood Count 8.5 T/CUMM (4-12)
[2016-10-06 06:05] LABS: Magnesium 2.2 MG/DL (1.8-2.4); Phosphorous 3.8 MG/DL (2.5-4.9); Prealbumin 17.7 MG/DL (20-40)
[2016-10-06 06:06] LABS: Albumin 2.5 G/DL (3.4-5.0); Bilirubin,Total 0.9 MG/DL (0.2-1.0); Calcium 8.1 MG/DL (8.5-10.1); Osmolality,Calculated 288.8 MOS/KG (273-304); Potassium 4.1 MMOL/L (3.5-5.1); Total Protein 5.1 G/DL (6.4-8.3)
[2016-10-06] MEDS: PROPOFOL 1,000 MG/100 ML BOTTLE IV SCH ×2 (07:00→17:41)
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
--- NOTE | 2016-10-06 07:32 | Pulmonology Progress Note ---
Pulmonary - PN: Subj Interval history: Patient is a 61-year-old black man that had seizures and was intubated. He had left lung pneumonia and likely aspirated. He has been stable on the ventilator but gets very agitated when sedation is off. He has not had any further seizures. His oxygenation has improved and his chest x-ray is better. He still does not want to do CPAP very well. Exam (Progress Note) - Constitutional Vitals: Period Temp Pulse Resp BP Sys/Syed Pulse Ox Last 24 Hr 97.3 F-99.2 F 70-106 8-23 71-112/52-80 97-100 Exam: General appearance: normal weight, other (He appears stable on the ventilator. He is still quite sedated.) - Head Head exam: Present: normal inspection, normocephalic - Eye Eye exam: Present: EOMI. Absent: scleral icterus Pupils: Present: MAAME - ENT ENT exam: Present: normal exam, other (ET tube is in good position) - Neck Neck exam: Present: normal inspection. Absent: lymphadenopathy, thyromegaly - Respiratory Respiratory exam: Present: His lungs have good breath sounds and I do not hear any definite wheezing or rhonchi now. - Cardiovascular Cardiovascular exam: Present: regular rate and rhythm. Absent: gallop, systolic murmur - GI/Abdominal GI/Abdominal exam: Present: normal bowel sounds, soft. Absent: distended, organomegaly, tenderness - Extremities Exam Extremities exam: Present: edema (He has mild edema in the lower extremities). Absent: calf tenderness - Neurological Exam Neurological exam: Present: other (He is responding now. He gets agitated when off sedation. He has not had any new seizures.) - Skin Skin exam: Present: warm, dry Results - Labs CBC & BMP: 10/06/16 04:09 10/06/16 04:09 Labs: PO2 is 140 with a PCO2 of 42 and a pH of 7.43 - Diagnostic Findings Procedure: Chest x-ray: image reviewed by me, report reviewed by me (Chest x- ray shows some minimal left lower lobe infiltrate.) Assessment and Plan (1) Status epilepticus Status: Acute Assessment and plan: The patient has seizures and is getting medications now. He appears to be stable at present. He has not had any further seizures. The EEG did not show any seizures. He is getting Dilantin now. His Dilantin level is 16.4. Current Visit: Yes (2) Acute respiratory failure Status: Acute Assessment and plan: The patient had to be intubated early on with respiratory distress. His oxygenation is improving. His left lung infiltrate is better. We will try CPAP trials today. If he is unable to cooperate, we may just need to extubate him quickly and see how he does. Current Visit: Yes (3) Aspiration pneumonia Status: Acute Assessment and plan: The patient has been treated for pneumonia as infiltrates are clearing. He will continue antibiotics for now. Current Visit: Yes
[2016-10-06] MEDS: ASPIRIN CHEW 81 MG TABLET PO SCH (08:34)
[2016-10-06] MEDS: ENOXAPARIN 60 MG/0.6 ML SYRINGE SUBCUT SCH ×2 (08:34→20:52)
[2016-10-06] MEDS: CARVEDILOL 3.125 MG TABLET PO SCH ×2 (08:34→20:52)
[2016-10-06] MEDS: PANTOPRAZOLE 40 MG VIAL IV SCH (08:34)
[2016-10-06] MEDS ORDERED: SODIUM CHLORIDE 0.9% 500 ML IV ONE ×3 (08:45→13:32)
--- NOTE | 2016-10-06 09:23 | Hospitalist Progress Note ---
Assessment and Plan (1) Status epilepticus Status: Acute Assessment and plan: 1)status epilepticus- no overt seizures since admission, and he is alert when diprivan is decreased. Dr Arroyo changed his med to dilantin. He has a seizure history and has been on Keppra but it appears he wasn't buying or taking it recently. Phenobarb loaded in ER. EEG with generalized slowing, no seizure activity noted. 2)acute respiratory failure- due to acute on chronic systolic CHF and aspiration during seizures. CXR better with positive pressure of vent. Started some lasix yesterday with improved LE edema, 1 liter negative. also on coreg, asa. He has severe global hypokinesis with EF 15% on echo. On Zosyn for aspiration pneumonia. cultures pending from bronch. 3)tracheal stenosis suspected at time of intubation 4)B LE great saphenous vein clot- on lovenox at treatment doses for now. 5)UDS- positive for benzos, cannabinoids, and barbituates (after phenobarb loading). 6)elevated glucose- use SSI if needed. HGBA1C 5.3 7)nutrition- on tube feeds 8)hypotension- hydrate gently. Current Visit: Yes (2) Acute respiratory failure Status: Acute Current Visit: Yes (3) Aspiration pneumonia Status: Acute Current Visit: Yes Hospitalist: Subjective Interval history: Mr Mora's SBP is 80/50 this morning. He was diuresed a bit yesterday. He has not done well with CPAP because he gets to agitated. He will be extubated when neurology says ok to try. No sign of more seizures. Exam - Constitutional Vitals: Period Temp Pulse Resp BP Sys/Syed Pulse Ox Last 24 Hr 97.1 F-99.2 F 70-106 8-23 71-112/52-80 97-100 General appearance: normal weight, no acute distress - Head Head exam: Present: normocephalic, atraumatic - Eye Eye exam: Present: EOMI. Absent: scleral icterus - Respiratory Respiratory exam: Present: clear to auscultation bilaterally - Cardiovascular Cardiovascular exam: Present: regular rate and rhythm - GI/Abdominal GI/Abdominal exam: Present: normal bowel sounds, soft. Absent: tenderness - Extremities Exam Extremities exam: Present: edema (trace dependent edema) - Neurological Exam Neurological exam: Present: other (sedated on vent) - Skin Skin exam: Present: warm, dry Results - Labs CBC & BMP: 10/06/16 04:09 10/06/16 04:09 Lab Results: I have reviewed the past 24 hour labs
--- NOTE | 2016-10-06 19:33 | Progress Note ---
HISTORY: Mr. Mora seems to be doing okay and feeling better. He opened his eyes up on commands. When he is off of sedation, he moves all four extremities spontaneously as well as upon commands. His Dilatant level is 16.4. PHYSICAL EXAMINATION VITAL SIGNS: His vital signs are stable. Afebrile. CHEST: Clear. HEART: Regular rate and rhythm. ABDOMEN: Soft, nontender. NEUROLOGIC: He is arousable and following commands. He is still on vent. Cranial nerves II throug h XII are intact. Motor exam. His strength, moving all four extremities. Gait cannot be tested. IMPRESSION: Seizure disorder. RECOMMENDATIONS: 1. Continue Dilantin. 2. Okay to extubate from neuro standpoint
[2016-10-07] MEDS: PHENYTOIN 100 MG/2 ML VIAL IV SCH ×3 (01:50→18:47)
[2016-10-07] MEDS: PIPERACILLIN/TAZOBACTAM 3,375 MG in SODIUM CHLORIDE 0.9% 100 ML IV SCH ×3 (01:52→19:07)
[2016-10-07] MEDS: INSULIN REGULAR 100 UNIT/ML SUBCUT SCH ×3 (03:06→12:27)
[2016-10-07] MEDS: PROPOFOL 1,000 MG/100 ML BOTTLE IV SCH (05:21)
[2016-10-07 05:53] LABS: Basophils % 0.3 % (0.0-0.8); Eosinophils # 0.1 10*3/uL (0.0-0.87); Eosinophils % 1.6 % (0.00-10.9); Hematocrit 34.9 VOL% (42.0-52.0); Hemoglobin 11.2 GM/DL (14.0-18.0); Immature Granulocytes % 0.2 %; Immature Granulocytes Absolute 0.01 #; Lymphocytes # 2.5 10*3/uL (1.4-4.0); Lymphocytes % 40.9 % (21.2-54.2); Mean Corpuscular HGB Conc 32.1 GM/DL (32-36); Mean Corpuscular Hemoglobin 32 PG (27-34); Mean Corpuscular Volume 98.3 FL (87-102); Mean Platelet Volume 10.1 FL (9.6-12.0); Monocytes # 0.6 10*3/uL (0.11-0.8); Neutrophils # 2.9 10*3/uL (1.4-7.4); Platelet Count 265 T/CUMM (130-400); Red Blood Count 3.55 MC/CUMM (3.8-5.5); Red Cell Distribution Width 14.2 % (9.3-17.3); White Blood Count 6.1 T/CUMM (4-12)
[2016-10-07 06:30] LABS: Albumin 2.5 G/DL (3.4-5.0); Bilirubin,Total 0.7 MG/DL (0.2-1.0); Calcium 8.6 MG/DL (8.5-10.1); Potassium 4.4 MMOL/L (3.5-5.1); Total Protein 5.4 G/DL (6.4-8.3)
[2016-10-07] MEDS: CARVEDILOL 3.125 MG TABLET PO SCH ×2 (08:12→20:17)
[2016-10-07] MEDS: ASPIRIN CHEW 81 MG TABLET PO SCH (08:12)
[2016-10-07] MEDS: PANTOPRAZOLE 40 MG VIAL IV SCH (08:16)
[2016-10-07] MEDS: ENOXAPARIN 60 MG/0.6 ML SYRINGE SUBCUT SCH ×2 (08:17→20:17)
--- NOTE | 2016-10-07 08:20 | Pulmonology Progress Note ---
Pulmonary - PN: Subj Interval history: Patient is a 61-year-old black man that had seizures and was intubated. He had left lung pneumonia and likely aspirated. He has been stable on the ventilator but gets very agitated when sedation is off. He has not had any further seizures. His oxygenation has improved and his chest x-ray is better. He has had a fairly stable night and his oxygenation is stable. We will plan to extubate him this morning. Exam (Progress Note) - Constitutional Vitals: Period Temp Pulse Resp BP Sys/Syed Pulse Ox Last 24 Hr 97.0 F-97.8 F 65-84 8-18 72-129/40-93 98-100 Exam: General appearance: normal weight, other (He appears stable on the ventilator. He is still quite sedated.) - Head Head exam: Present: normal inspection, normocephalic - Eye Eye exam: Present: EOMI. Absent: scleral icterus Pupils: Present: MAAME - ENT ENT exam: Present: normal exam, other (ET tube is in good position) - Neck Neck exam: Present: normal inspection. Absent: lymphadenopathy, thyromegaly - Respiratory Respiratory exam: Present: His lungs have good breath sounds and I do not hear any definite wheezing or rhonchi now. He is moving air reasonably well. - Cardiovascular Cardiovascular exam: Present: regular rate and rhythm. Absent: gallop, systolic murmur - GI/Abdominal GI/Abdominal exam: Present: normal bowel sounds, soft. Absent: distended, organomegaly, tenderness - Extremities Exam Extremities exam: Present: edema (He has mild edema in the lower extremities). Absent: calf tenderness - Neurological Exam Neurological exam: Present: other (He is responding now. He gets agitated when off sedation. He has not had any new seizures.) - Skin Skin exam: Present: warm, dry Results - Labs CBC & BMP: 10/07/16 05:32 10/07/16 05:32 Assessment and Plan (1) Status epilepticus Status: Acute Assessment and plan: The patient has seizures and is getting medications now. He appears to be stable at present. He has not had any further seizures. The EEG did not show any seizures. He is getting Dilantin now. His Dilantin level is 16.4. From a neurological standpoint he has been reasonably stable. We will try him off the ventilator. Current Visit: Yes (2) Acute respiratory failure Status: Acute Assessment and plan: The patient had to be intubated early on with respiratory distress. His oxygenation is improving. His left lung infiltrate is better. He has not been able to cooperate much as he fights the ventilator. His lungs are doing okay and will extubate him today. Current Visit: Yes (3) Aspiration pneumonia Status: Acute Assessment and plan: The patient has been treated for pneumonia as infiltrates are clearing. He will continue antibiotics for now. Current Visit: Yes
[2016-10-07] MEDS: FUROSEMIDE 40 MG/4 ML VIAL IV SCH (08:22)
--- NOTE | 2016-10-07 13:31 | Hospitalist Progress Note ---
Assessment and Plan (1) Status epilepticus Status: Acute Assessment and plan: 1)status epilepticus- no overt seizures since admission,Dr Arroyo has him on dilantin now. i suspect he was not taking his KEprpa prior to admission. EEG with generalized slowing, no seizure activity noted. 2)acute respiratory failure- due to acute on chronic systolic CHF and aspiration during seizures. He has severe global hypokinesis with EF 15% on echo. Lungs cleared- continue treating aspiration. On Zosyn for aspiration pneumonia. cultures pending from bronch. 3)tracheal stenosis suspected at time of intubation 4)B LE great saphenous vein clot- on lovenox at treatment doses for now. 5)UDS- positive for benzos, cannabinoids, and barbituates (after phenobarb loading). 6)elevated glucose- use SSI if needed. HGBA1C 5.3 7)nutrition- can have regular diet now that he is extubated. Current Visit: Yes (2) Acute respiratory failure Status: Acute Current Visit: Yes (3) Aspiration pneumonia Status: Acute Current Visit: Yes Hospitalist: Subjective Interval history: Mr Mora was stable on vent overnight. He was extubated this morning and his nurse reports he is confused about where he is now. He will stay in CCU today. Exam - Constitutional Vitals: Period Temp Pulse Resp BP Sys/Syed Pulse Ox Last 24 Hr 97.0 F-98.3 F 65-84 8-24 73-130/40-89 98-100 General appearance: normal weight, no acute distress - Head Head exam: Present: normocephalic, atraumatic - Eye Eye exam: Present: EOMI. Absent: scleral icterus Pupils: Present: MAAME - Respiratory Respiratory exam: Present: clear to auscultation bilaterally - Cardiovascular Cardiovascular exam: Present: regular rate and rhythm - GI/Abdominal GI/Abdominal exam: Present: normal bowel sounds, soft. Absent: tenderness - Extremities Exam Extremities exam: Absent: edema Results - Labs CBC & BMP: 10/07/16 05:32 10/07/16 05:32 Lab Results: I have reviewed the past 24 hour labs
--- NOTE | 2016-10-07 18:24 | Neurology Progress Note ---
Neurology - PN : Subjective Interval history: Patient is extubated. Seems to be doing okay. No new problems reported. No more seizures reported. Exam (Progress Note) - Constitutional Vitals: Period Temp Pulse Resp BP Sys/Syed Pulse Ox Last 24 Hr 97.4 F-99.6 F 65-105 8-24 73-134/40-92 98-100 Exam: GENERAL: Patient is in no acute distress. NECK: Neck is supple. There is no JVD. No carotid bruits present. No thyroid masses. CVS: First and second heart sounds are normal. There is no S3 present. Regular rate and rhythm. RESPIRATORY: Lungs are clear to auscultation without any rales or rhonchi. ABDOMEN: Soft and non-tender. Bowel sounds are present. There is no hepatosplenomegaly. EXT: There is no palpable edema. Peripheral pulses are present. Skin: No rashes Central Nervous system: General: Alert and awake Speech: Fluent Comprehension: Fair Facial expressions: Normal Cranial Nerves: Pupils are sluggish but reactive. Extraocular movements are intact. No facial asymmetry is seen Motor: Bulk and Tone is normal. Strength symmetrical Sensory: Cannot be assessed Reflexes: 1+ and symmetrical Cerebellar function: Cannot be assessed Toes: Equivocal Gait: Cannot be assessed Results - Labs CBC & BMP: 10/07/16 05:32 10/07/16 05:32 Assessment and Plan (1) Seizure disorder Status: Acute Assessment and plan: Continue Dilantin and change to p.o. No new recommendations. Current Visit: Yes
[2016-10-07] MEDS: PHENYTOIN ER 100 MG CAPSULE PO SCH (20:17)
[2016-10-08] MEDS: PIPERACILLIN/TAZOBACTAM 3,375 MG in SODIUM CHLORIDE 0.9% 100 ML IV SCH ×3 (00:06→15:47)
[2016-10-08 05:38] LABS: Basophils % 0.6 % (0.0-0.8); Eosinophils # 0.1 10*3/uL (0.0-0.87); Eosinophils % 2.2 % (0.00-10.9); Hematocrit 31.6 VOL% (42.0-52.0); Hemoglobin 10.3 GM/DL (14.0-18.0); Immature Granulocytes % 0.2 %; Immature Granulocytes Absolute 0.01 #; Lymphocytes % 40.8 % (21.2-54.2); Mean Corpuscular HGB Conc 32.6 GM/DL (32-36); Mean Corpuscular Hemoglobin 31 PG (27-34); Mean Corpuscular Volume 95.8 FL (87-102); Mean Platelet Volume 10.2 FL (9.6-12.0); Monocytes # 0.4 10*3/uL (0.11-0.8); Monocytes % 7.3 % (1.7-12.7); Neutrophils # 2.4 10*3/uL (1.4-7.4); Neutrophils % 48.9 % (38.7-73.9); Platelet Count 252 T/CUMM (130-400); Red Cell Distribution Width 13.9 % (9.3-17.3); White Blood Count 4.9 T/CUMM (4-12)
[2016-10-08 06:10] LABS: Osmolality,Calculated 281.3 MOS/KG (273-304)
--- NOTE | 2016-10-08 07:45 | Pulmonology Progress Note ---
Pulmonary - PN: Subj Interval history: This 61-year-old white male had seizures and apparently left lower lobe aspiration pneumonia. Mechanically ventilated but was able to be extubated yesterday without difficulty. His been somewhat confused thinking that he is at a [employer]. Otherwise he is stable. He is getting some oral feedings. Exam (Progress Note) - Constitutional Vitals: Period Temp Pulse Resp BP Sys/Syed Pulse Ox Last 24 Hr 98.3 F-99.6 F 68-105 8-24 102-134/63-97 94-100 Exam: Patient is alert but confused. Vital signs normal. Pupils react to light. Throat is clear. Neck supple bruits. Chest reveals a few rhonchi at the left base otherwise clear. Heart normal rate rhythm no murmurs. Abdomen soft nontender no masses. Extremities no clubbing cyanosis edema. Calves nontender. Results - Labs CBC & BMP: 10/08/16 05:21 10/08/16 05:21 Lab Results: I have reviewed the past 24 hour labs Assessment and Plan (1) Aspiration pneumonia Status: Acute Assessment and plan: Continuing empiric antibiotics. Recheck chest x-ray tomorrow. Getting Zosyn. Current Visit: Yes (2) Seizure disorder Status: Acute Assessment and plan: No further seizures. Current Visit: Yes (3) COPD with acute bronchitis Status: Acute Assessment and plan: Continuing bronchodilators. Oxygen saturation looks good. Has done well since off vent. Current Visit: No
[2016-10-08] MEDS: FUROSEMIDE 40 MG/4 ML VIAL IV SCH (08:28)
[2016-10-08] MEDS: CARVEDILOL 3.125 MG TABLET PO SCH ×2 (08:29→21:54)
[2016-10-08] MEDS: PHENYTOIN ER 100 MG CAPSULE PO SCH ×3 (08:29→21:54)
[2016-10-08] MEDS: PANTOPRAZOLE 40 MG VIAL IV SCH (08:29)
[2016-10-08] MEDS: ENOXAPARIN 60 MG/0.6 ML SYRINGE SUBCUT SCH ×2 (08:29→21:55)
[2016-10-08] MEDS: ASPIRIN CHEW 81 MG TABLET PO SCH (08:29)
--- NOTE | 2016-10-08 09:03 | Hospitalist Progress Note ---
Assessment and Plan - Time spent with patient Time spent with patient: Greater than 30 minutes (1) Status epilepticus Status: Acute Assessment and plan: Patient was admitted with status epilepticus. He is now been placed on oral Dilantin and has had no recent seizure activity. He is medically stable at this time and will plan transfer to a monitored bed. Current Visit: Yes (2) Acute respiratory failure Status: Resolved Assessment and plan: Patient had acute respiratory failure secondary to status epilepticus. He is now been extubated, oxygenating well and stable for transfer to the floor. Current Visit: Yes (3) Aspiration pneumonia Status: Acute Assessment and plan: Patient has aspiration pneumonitis which is being treated with IV Zosyn. Pulmonary has been following. Will continue current medical regimen. Current Visit: Yes (4) Seizure disorder Status: Chronic Assessment and plan: Patient has chronic seizure disorder. He is now been placed on Dilantin per Dr. Arroyo. Will continue current medical regimen and follow. Current Visit: Yes Hospitalist: Subjective Interval history: Patient examined and chart is been reviewed patient patient is up in the room currently going to the bathroom and has no complaints. No recent seizures documented. Tolerating his diet. [place] is in place. Exam - Constitutional Vitals: Period Temp Pulse Resp BP Sys/Syed Pulse Ox Last 24 Hr 97.5 F-99.6 F 68-105 8-24 102-134/63-97 94-100 General appearance: no acute distress - Head Head exam: Present: normocephalic, atraumatic - Eye Eye exam: Present: EOMI Pupils: Present: MAAME - ENT ENT exam: Present: normal exam - Neck Neck exam: Present: normal inspection - Respiratory Respiratory exam: Present: clear to auscultation bilaterally - Cardiovascular Cardiovascular exam: Present: regular rate and rhythm - GI/Abdominal GI/Abdominal exam: Present: normal bowel sounds, soft. Absent: mass, rebound - Extremities Exam Extremities exam: Absent: calf tenderness, edema - Back Exam Back exam: Present: normal inspection - Neurological Exam Neurological exam: Present: alert, oriented X3, CN II-XII intact. Absent: motor sensory deficit - Psychiatric Psychiatric exam: Present: normal affect, normal mood. Absent: agitated, anxious - Skin Skin exam: Present: warm, dry. Absent: rash Results - Labs CBC & BMP: 10/08/16 05:21 10/08/16 05:21 Lab Results: I have reviewed the past 24 hour labs
[2016-10-09] MEDS: PIPERACILLIN/TAZOBACTAM 3,375 MG in SODIUM CHLORIDE 0.9% 100 ML IV SCH ×3 (01:03→15:33)
--- NOTE | 2016-10-09 08:57 | XRay Report ---
XR chest 1V portable Indication: Left lower lobe pneumonia Comparison: Chest x-ray 10/06/2016. Technique: Portable AP chest was performed. Findings: Interval extubation and removal of NG tube has occurred. Improved visualization of the left hemidiaphragm is noted. Additionally, the left lung base appears to demonstrate interval partial clearing. Chest is otherwise unchanged. Impression: 1. Improving aeration of the left lung base is noted. 2. Interval extubation and removal of NG tube. 10/09/2016 8:54 AM PROCEDURE INTERPRETED AT [facility] DEPARTMENT OF RADIOLOGY Final Report Signed by: Dr. Carlos Jennings
[2016-10-09] MEDS: PHENYTOIN ER 100 MG CAPSULE PO SCH ×3 (09:00→23:07)
[2016-10-09] MEDS: CARVEDILOL 3.125 MG TABLET PO SCH ×2 (09:00→23:06)
[2016-10-09] MEDS: ASPIRIN CHEW 81 MG TABLET PO SCH (09:00)
[2016-10-09] MEDS: PANTOPRAZOLE 40 MG VIAL IV SCH (09:01)
[2016-10-09] MEDS: ENOXAPARIN 60 MG/0.6 ML SYRINGE SUBCUT SCH ×2 (09:01→23:07)
[2016-10-09] MEDS: FUROSEMIDE 40 MG/4 ML VIAL IV SCH (09:01)
--- NOTE | 2016-10-09 10:05 | Pulmonology Progress Note ---
Pulmonary - PN: Subj Interval history: This 61-year-old male had seizures and apparently left lower lobe aspiration pneumonia. Mechanically ventilated but was able to be extubated yesterday without difficulty. His been somewhat confused thinking that he is at a [place] restaurant. Otherwise he is stable. He is getting some oral feedings. 10/09/2016 patient now on the ramirez. His mental status is a little better. He states that he does get shaky when he tries to walk. Room air oxygen saturation looks good. Chest x-ray is improved with better aeration of left lower lobe. Exam (Progress Note) - Constitutional Vitals: Period Temp Pulse Resp BP Sys/Syed Pulse Ox Last 24 Hr 97.3 F-98.4 F 65-78 18- 108-127/1 96-100 Exam: Patient is alert but confused. Vital signs normal. Pupils react to light. Throat is clear. Neck supple bruits. Chest reveals a few rhonchi at the left base otherwise clear. Heart normal rate rhythm no murmurs. Abdomen soft nontender no masses. Extremities no clubbing cyanosis edema. Calves nontender. Little change from yesterday Results - Labs CBC & BMP: 10/08/16 05:21 10/08/16 05:21 Lab Results: I have reviewed the past 24 hour labs - Diagnostic Findings Procedure: Chest x-ray: image reviewed by me (Cardiomegaly. Previously noted left lower lobe infiltrate has now resolved. Left diaphragm is visible) Assessment and Plan (1) Aspiration pneumonia Status: Acute Assessment and plan: Continuing empiric antibiotics. Recheck chest x-ray tomorrow. Getting Zosyn. 10/09/2016 tolerating oral feedings. Chest x-ray improved. Probably needs a couple more days of IV antibiotics. Current Visit: Yes (2) Seizure disorder Status: Chronic Assessment and plan: No further seizures. 10/09/2016 no further seizures on current medications. Current Visit: Yes (3) COPD with acute bronchitis Status: Acute Assessment and plan: Continuing bronchodilators. Oxygen saturation looks good. Has done well since off vent. 10/09/2016 no active bronchospasm. Current Visit: No
--- NOTE | 2016-10-09 14:41 | Hospitalist Progress Note ---
Assessment and Plan - Time spent with patient Time spent with patient: Greater than 30 minutes (1) Weakness Status: Acute Assessment and plan: Generalized weakness, no focal defecits. PT/OT, SW. Current Visit: Yes (2) Seizure disorder Status: Chronic Assessment and plan: Continue current management. Current Visit: Yes (3) Aspiration pneumonia Status: Acute Assessment and plan: Continue current management. Current Visit: Yes (4) COPD with acute bronchitis Status: Acute Assessment and plan: Continue current management. Current Visit: No Hospitalist: Subjective Interval history: No overnight events. He complains of weakness. Exam - Constitutional Vitals: Period Temp Pulse Resp BP Sys/Syed Pulse Ox Last 24 Hr 97.0 F-98.4 F 69-81 18-20 96-126/1-86 96-100 General appearance: no acute distress - Head Head exam: Present: normocephalic, atraumatic - Eye Eye exam: Present: EOMI Pupils: Present: MAAME - ENT ENT exam: Present: normal exam - Neck Neck exam: Present: normal inspection - Respiratory Respiratory exam: Present: clear to auscultation bilaterally. Absent: rhonchi, wheezes - Cardiovascular Cardiovascular exam: Present: regular rate and rhythm. Absent: gallop, rubs, systolic murmur - GI/Abdominal GI/Abdominal exam: Present: normal bowel sounds, soft. Absent: distended, firm , guarding, tenderness, rebound - Extremities Exam Extremities exam: Present: normal inspection. Absent: calf tenderness, edema - Neurological Exam Neurological exam: Present: alert, oriented X3, CN II-XII intact Results - Labs CBC & BMP: 10/08/16 05:21 10/08/16 05:21 Lab Results: I have reviewed the past 24 hour labs
[2016-10-10] MEDS: PIPERACILLIN/TAZOBACTAM 3,375 MG in SODIUM CHLORIDE 0.9% 100 ML IV SCH ×3 (00:43→17:05)
[2016-10-10 03:03] LABS: Basophils # 0.1 10*3/uL (0.0-0.2); Basophils % 0.7 % (0.0-0.8); Eosinophils # 0.1 10*3/uL (0.0-0.87); Eosinophils % 1.2 % (0.00-10.9); Hematocrit 35.4 VOL% (42.0-52.0); Hemoglobin 11.2 GM/DL (14.0-18.0); Immature Granulocytes % 0.5 %; Immature Granulocytes Absolute 0.04 #; Lymphocytes # 2.1 10*3/uL (1.4-4.0); Mean Corpuscular HGB Conc 31.6 GM/DL (32-36); Mean Corpuscular Hemoglobin 31 PG (27-34); Mean Corpuscular Volume 98.1 FL (87-102); Mean Platelet Volume 10.5 FL (9.6-12.0); Monocytes # 0.7 10*3/uL (0.11-0.8); Monocytes % 9.6 % (1.7-12.7); Neutrophils # 4.4 10*3/uL (1.4-7.4); Platelet Count 312 T/CUMM (130-400); Red Blood Count 3.61 MC/CUMM (3.8-5.5); Red Cell Distribution Width 13.8 % (9.3-17.3); White Blood Count 7.4 T/CUMM (4-12)
[2016-10-10 03:28] LABS: Calcium 8.5 MG/DL (8.5-10.1); Osmolality,Calculated 274.7 MOS/KG (273-304); Potassium 4.2 MMOL/L (3.5-5.1)
[2016-10-10] MEDS: CARVEDILOL 3.125 MG TABLET PO SCH ×2 (09:46→20:55)
[2016-10-10] MEDS: PHENYTOIN ER 100 MG CAPSULE PO SCH ×3 (09:46→20:56)
[2016-10-10] MEDS: ENOXAPARIN 60 MG/0.6 ML SYRINGE SUBCUT SCH ×2 (09:46→20:56)
[2016-10-10] MEDS: ASPIRIN CHEW 81 MG TABLET PO SCH (09:49)
[2016-10-10] MEDS: PANTOPRAZOLE 40 MG VIAL IV SCH (09:56)
[2016-10-10] MEDS: FUROSEMIDE 40 MG/4 ML VIAL IV SCH (09:58)
--- NOTE | 2016-10-10 13:38 | Pulmonology Progress Note ---
Pulmonary - PN: Subj Interval history: Patient is a 61-year-old black man that had seizures and was intubated. He had left lung pneumonia and likely aspirated. He has been stable on the ventilator but gets very agitated when sedation is off. He has not had any further seizures. His oxygenation has improved and his chest x-ray is better. He was extubated Monday and has done fairly well. He has been moved to a regular room and says he is doing some walking now. He says he is eating okay and his shortness of breath is better. He still has some cough. He has not had any further seizures. He does get confused easily. Exam (Progress Note) - Constitutional Vitals: Period Temp Pulse Resp BP Sys/Syed Pulse Ox Last 24 Hr 97.5 F-98.9 F 70-96 18-20 118-124/74-82 2-100 Exam: General appearance: normal weight, other (He responds okay and is in no distress. ) - Head Head exam: Present: normal inspection, normocephalic - Eye Eye exam: Present: EOMI. Absent: scleral icterus Pupils: Present: MAAME - ENT ENT exam: Present: normal exam - Neck Neck exam: Present: normal inspection. Absent: lymphadenopathy, thyromegaly - Respiratory Respiratory exam: Present: His lungs have good breath sounds and his lungs sound reasonably clear without any wheezing. - Cardiovascular Cardiovascular exam: Present: regular rate and rhythm. Absent: gallop, systolic murmur - GI/Abdominal GI/Abdominal exam: Present: normal bowel sounds, soft. Absent: distended, organomegaly, tenderness - Extremities Exam Extremities exam: Present: He does not have any leg swelling or tenderness now. - Neurological Exam Neurological exam: Present: other (He is talking and seems fairly alert now.) - Skin Skin exam: Present: warm, dry Results - Labs CBC & BMP: 10/10/16 02:01 10/10/16 02:01 Assessment and Plan (1) Status epilepticus Status: Acute Assessment and plan: The patient has seizures and is getting medications now. He appears to be stable at present. He has not had any further seizures. Neurologically he seems to be stable. Current Visit: Yes (2) Acute respiratory failure Status: Resolved Assessment and plan: The patient came off the ventilator now and is doing better. He does not seem to be having any respiratory difficulties at present. Current Visit: Yes (3) Aspiration pneumonia Status: Acute Assessment and plan: The patient has had some aspiration pneumonia but this is doing better now. He has very mild left lower lobe infiltrate. Current Visit: Yes
--- NOTE | 2016-10-10 14:13 | Hospitalist Progress Note ---
Assessment and Plan - Time spent with patient Time spent with patient: Greater than 30 minutes (1) Weakness Status: Acute Assessment and plan: Generalized weakness, no focal defecits. PT/OT, SW. Current Visit: Yes (2) Seizure disorder Status: Chronic Assessment and plan: Continue current management. Current Visit: Yes (3) Aspiration pneumonia Status: Acute Assessment and plan: Continue current management. Current Visit: Yes (4) COPD with acute bronchitis Status: Acute Assessment and plan: Continue current management. Current Visit: No (5) Gait abnormality Status: Acute Assessment and plan: obtain MRI of the brain. Current Visit: Yes Hospitalist: Subjective Interval history: No complaints, or overnight events. Exam - Constitutional Vitals: Period Temp Pulse Resp BP Sys/Syed Pulse Ox Last 24 Hr 97.5 F-98.9 F 70-96 18-20 118-124/74-82 2-100 General appearance: normal weight, no acute distress - Head Head exam: Present: normal inspection, normocephalic, atraumatic - Eye Eye exam: Present: EOMI Pupils: Present: MAAME - ENT ENT exam: Present: normal exam - Neck Neck exam: Present: normal inspection. Absent: lymphadenopathy, meningismus, thyromegaly - Respiratory Respiratory exam: Present: clear to auscultation bilaterally. Absent: accessory muscle use, rales, rhonchi, wheezes - Cardiovascular Cardiovascular exam: Present: regular rate and rhythm. Absent: bradycardia, irregular rhythm, systolic murmur - GI/Abdominal GI/Abdominal exam: Absent: normal bowel sounds, ascites, distended, firm, guarding, mass - Extremities Exam Extremities exam: Present: normal inspection Results - Labs CBC & BMP: 10/10/16 02:01 10/10/16 02:01 Lab Results: I have reviewed the past 24 hour labs
[2016-10-11] MEDS: PIPERACILLIN/TAZOBACTAM 3,375 MG in SODIUM CHLORIDE 0.9% 100 ML IV SCH ×3 (02:23→17:32)
[2016-10-11 06:53] LABS: Basophils % 0.6 % (0.0-0.8); Eosinophils # 0.1 10*3/uL (0.0-0.87); Eosinophils % 1.7 % (0.00-10.9); Hematocrit 34.6 VOL% (42.0-52.0); Immature Granulocytes % 0.3 %; Immature Granulocytes Absolute 0.02 #; Lymphocytes # 2.2 10*3/uL (1.4-4.0); Lymphocytes % 34.2 % (21.2-54.2); Mean Corpuscular HGB Conc 31.8 GM/DL (32-36); Mean Corpuscular Hemoglobin 31 PG (27-34); Mean Corpuscular Volume 96.1 FL (87-102); Mean Platelet Volume 10.1 FL (9.6-12.0); Monocytes # 0.6 10*3/uL (0.11-0.8); Neutrophils # 3.4 10*3/uL (1.4-7.4); Neutrophils % 53.2 % (38.7-73.9); Platelet Count 323 T/CUMM (130-400); White Blood Count 6.4 T/CUMM (4-12)
[2016-10-11 07:26] LABS: Calcium 8.8 MG/DL (8.5-10.1); Osmolality,Calculated 280.4 MOS/KG (273-304); Potassium 4.3 MMOL/L (3.5-5.1)
--- NOTE | 2016-10-11 10:51 | Pulmonology Progress Note ---
Pulmonary - PN: Subj Interval history: Patient is a 61-year-old black man that had seizures and was intubated. He had left lung pneumonia and likely aspirated. He has been stable on the ventilator but gets very agitated when sedation is off. He has not had any further seizures. His oxygenation has improved and his chest x-ray is better. He was extubated Monday and has done fairly well. He has been moved to a regular room and says he is doing some walking now. He says he is eating okay and his shortness of breath is better. He still has a little bit of cough and hoarseness. He says he is not short of breath. He has not had any further seizures. He says he is drinking liquids. Overall he has been reasonably stable Exam (Progress Note) - Constitutional Vitals: Period Temp Pulse Resp BP Sys/Syed Pulse Ox Last 24 Hr 97.1 F-98.6 F 63-82 18-20 114-121/73-82 93-100 Exam: General appearance: normal weight, other (He responds okay and is in no distress. He does have a little bit of hoarseness.) - Head Head exam: Present: normal inspection, normocephalic - Eye Eye exam: Present: EOMI. Absent: scleral icterus Pupils: Present: MAAME - ENT ENT exam: Present: normal exam, he has a raspy voice. - Neck Neck exam: Present: normal inspection. Absent: lymphadenopathy, thyromegaly - Respiratory Respiratory exam: Present: His lungs have good breath sounds and his lungs sound reasonably clear without any wheezing. He does have some minimal rhonchi on deep breaths. - Cardiovascular Cardiovascular exam: Present: regular rate and rhythm. Absent: gallop, systolic murmur - GI/Abdominal GI/Abdominal exam: Present: normal bowel sounds, soft. Absent: distended, organomegaly, tenderness - Extremities Exam Extremities exam: Present: He does not have any leg swelling or tenderness now. - Neurological Exam Neurological exam: Present: other (He is talking and seems fairly alert now.) - Skin Skin exam: Present: warm, dry Results - Labs CBC & BMP: 10/11/16 06:15 10/11/16 06:15 Assessment and Plan (1) Status epilepticus Status: Acute Assessment and plan: The patient has seizures and is getting medications now. He appears to be stable at present. He has not had any further seizures. Neurologically he seems to be stable. He will continue with physical therapy. Current Visit: Yes (2) Acute respiratory failure Status: Resolved Assessment and plan: The patient came off the ventilator now and is doing better. He has some cough and hoarseness but does not seem to be having too much trouble breathing. We will continue with respiratory therapy. Current Visit: Yes (3) Aspiration pneumonia Status: Acute Assessment and plan: The patient has had some aspiration pneumonia but this is doing better now. He has very mild left lower lobe infiltrate. He will continue with antibiotics. Current Visit: Yes
[2016-10-11] MEDS: FUROSEMIDE 40 MG/4 ML VIAL IV SCH (11:12)
[2016-10-11] MEDS: PANTOPRAZOLE 40 MG VIAL IV SCH (11:12)
[2016-10-11] MEDS: ASPIRIN CHEW 81 MG TABLET PO SCH (11:12)
[2016-10-11] MEDS: PHENYTOIN ER 100 MG CAPSULE PO SCH ×3 (11:12→21:02)
[2016-10-11] MEDS: CARVEDILOL 3.125 MG TABLET PO SCH ×2 (11:13→21:02)
[2016-10-11] MEDS: ENOXAPARIN 60 MG/0.6 ML SYRINGE SUBCUT SCH ×2 (11:24→21:02)
[2016-10-11] MEDS: ALBUTEROL/IPRATROPIUM 3 ML NEB RESP TX SCH ×2 (12:51→20:17)
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
--- NOTE | 2016-10-11 15:25 | Neurology Progress Note ---
Neurology - PN : Subjective Interval history: Patient seems to be doing okay. No more seizures reported. Neurologically he is stable. Exam (Progress Note) - Constitutional Vitals: Period Temp Pulse Resp BP Sys/Syed Pulse Ox Last 24 Hr 97.1 F-98.6 F 63-111 18-20 114-165/73-98 93-100 Exam: GENERAL: Patient is in no acute distress. NECK: Neck is supple. There is no JVD. No carotid bruits present. No thyroid masses. CVS: First and second heart sounds are normal. There is no S3 present. Regular rate and rhythm. RESPIRATORY: Lungs are clear to auscultation without any rales or rhonchi. ABDOMEN: Soft and non-tender. Bowel sounds are present. There is no hepatosplenomegaly. EXT: There is no palpable edema. Peripheral pulses are present. Skin: No rashes Central Nervous system: General: Alert and awake Speech: Fluent Comprehension: Fair Facial expressions: Normal Cranial Nerves: Pupils are sluggish but reactive. Extraocular movements are intact. No facial asymmetry is seen Motor: Bulk and Tone is normal. Strength symmetrical Sensory: Cannot be assessed Reflexes: 1+ and symmetrical Cerebellar function: Cannot be assessed Toes: Equivocal Gait: Not assessed Results - Labs CBC & BMP: 10/11/16 06:15 10/11/16 06:15 Assessment and Plan (1) Seizure disorder Status: Chronic Assessment and plan: Continue Dilantin and change to p.o. No new recommendations. Sign off please call as needed Current Visit: Yes
[2016-10-11] MEDS: PHENOL 1.4% THROAT SPRAY 177 ML BOTTLE PO PRN (17:31)
[2016-10-12] MEDS: PIPERACILLIN/TAZOBACTAM 3,375 MG in SODIUM CHLORIDE 0.9% 100 ML IV SCH ×3 (00:50→17:08)
[2016-10-12] MEDS ORDERED: methylPREDNISolone SOD SUC 125 MG/2 ML VIAL IV ONE (01:28)
[2016-10-12] MEDS ORDERED: ALBUTEROL 1.25 MG/3 ML NEB RESP TX PRN (01:28)
[2016-10-12] MEDS: ALBUTEROL/IPRATROPIUM 3 ML NEB RESP TX SCH ×4 (01:38→20:19)
[2016-10-12] MEDS: CLORAZEPATE 7.5 MG TABLET PO PRN ×2 (01:46→09:37)
[2016-10-12] MEDS: PHENYTOIN ER 100 MG CAPSULE PO SCH ×3 (09:38→20:33)
[2016-10-12] MEDS: FUROSEMIDE 40 MG/4 ML VIAL IV SCH (09:38)
[2016-10-12] MEDS: CARVEDILOL 3.125 MG TABLET PO SCH ×2 (09:38→20:33)
[2016-10-12] MEDS: ASPIRIN CHEW 81 MG TABLET PO SCH (09:38)
[2016-10-12] MEDS: PANTOPRAZOLE 40 MG VIAL IV SCH (09:38)
[2016-10-12] MEDS: ENOXAPARIN 60 MG/0.6 ML SYRINGE SUBCUT SCH ×2 (09:43→20:34)
--- NOTE | 2016-10-12 10:36 | Pulmonology Progress Note ---
Pulmonary - PN: Subj Interval history: Patient is a 61-year-old black man that had seizures and was intubated. He had left lung pneumonia and likely aspirated. His lungs cleared up and he came off the ventilator okay. He is not having any further seizures. He lies around in bed a lot and does not do much activity. He still has some hoarseness and cough but his breathing is okay. His chest x-ray looks clear now. It is unclear how much activity he usually does. Exam (Progress Note) - Constitutional Vitals: Period Temp Pulse Resp BP Sys/Syed Pulse Ox Last 24 Hr 96.3 F-100.4 F 71-111 18-22 97-165/57-98 92-99 Exam: General appearance: normal weight, other (He responds okay and is in no distress. He does have a little bit of hoarseness. He is always lying in bed.) - Head Head exam: Present: normal inspection, normocephalic - Eye Eye exam: Present: EOMI. Absent: scleral icterus Pupils: Present: MAAME - ENT ENT exam: Present: normal exam, he has a raspy voice. - Neck Neck exam: Present: normal inspection. Absent: lymphadenopathy, thyromegaly - Respiratory Respiratory exam: Present: His lungs have good breath sounds and his lungs sound reasonably clear without any wheezing. He is still moving air okay with minimal rhonchi. - Cardiovascular Cardiovascular exam: Present: regular rate and rhythm. Absent: gallop, systolic murmur - GI/Abdominal GI/Abdominal exam: Present: normal bowel sounds, soft. Absent: distended, organomegaly, tenderness - Extremities Exam Extremities exam: Present: He does not have any leg swelling or tenderness now. - Neurological Exam Neurological exam: Present: other (He is talking and seems fairly alert now. He does not do a lot of activity however.) - Skin Skin exam: Present: warm, dry Results - Labs CBC & BMP: 10/11/16 06:15 10/11/16 06:15 - Diagnostic Findings Procedure: Chest x-ray: image reviewed by me, report reviewed by me (Chest x- ray is clear now.) Assessment and Plan (1) Status epilepticus Status: Acute Assessment and plan: The patient has seizures and is getting medications now. He appears to be stable at present. He has not had any further seizures. Neurologically he seems to be stable. He does not do much activity however. Current Visit: Yes (2) Acute respiratory failure Status: Resolved Assessment and plan: The patient came off the ventilator now and is doing better. He has some cough and hoarseness but does not seem to be having too much trouble breathing. His chest x-ray is much better now. He is getting respiratory therapy. Current Visit: Yes (3) Aspiration pneumonia Status: Acute Assessment and plan: The patient has had some aspiration pneumonia but this is doing better now. His x-ray is clear now and is chest congestion is better. Current Visit: Yes
--- NOTE | 2016-10-12 11:23 | XRay Report ---
History: Low-grade fever. Shortness of breath Date: 10/12/2016 Study: Chest x-ray AP portable Comparison exam: October 09, 2016 The cardiomediastinal silhouette is unchanged. The pulmonary vasculature is not engorged. There is no new or worsening infiltrate. There is improved aeration in the left lung base, though there is some minor residual strandy atelectasis/infiltrate. There is no pleural effusion. Osseous structures are similar. Impression: Improved aeration of the left lower lobe compared to the previous study, though there is some minor residual strandy atelectasis/infiltrate PROCEDURE INTERPRETED AT [facility] DEPARTMENT OF RADIOLOGY Final Report Signed by: Dr. Joelle Weldon
--- NOTE | 2016-10-12 14:12 | Hospitalist Progress Note ---
Assessment and Plan - Time spent with patient Time spent with patient: Greater than 30 minutes (1) Weakness Status: Acute Assessment and plan: Generalized weakness, no focal defecits. PT/OT, SW. Current Visit: Yes (2) Seizure disorder Status: Chronic Assessment and plan: Continue current management. Current Visit: Yes (3) Aspiration pneumonia Status: Acute Assessment and plan: Continue current management. Current Visit: Yes (4) COPD with acute bronchitis Status: Acute Assessment and plan: Continue current management. Current Visit: No Hospitalist: Subjective Interval history: No complaints or overnight events. Appears more comfortable. Exam - Constitutional Vitals: Period Temp Pulse Resp BP Sys/Syed Pulse Ox Last 24 Hr 96.3 F-100.4 F 71-110 18-22 97-135/57-84 92-99 General appearance: no acute distress - Head Head exam: Present: normocephalic, atraumatic - Eye Eye exam: Present: EOMI Pupils: Present: MAAME - ENT ENT exam: Present: normal exam - Neck Neck exam: Present: normal inspection - Respiratory Respiratory exam: Present: clear to auscultation bilaterally, stridor. Absent: rhonchi, wheezes - Cardiovascular Cardiovascular exam: Present: regular rate and rhythm. Absent: gallop, rubs, systolic murmur - GI/Abdominal GI/Abdominal exam: Present: normal bowel sounds, soft. Absent: distended, firm , guarding, tenderness, rebound - Extremities Exam Extremities exam: Present: normal inspection. Absent: calf tenderness, edema Results - Labs CBC & BMP: 10/11/16 06:15 10/11/16 06:15 Lab Results: I have reviewed the past 24 hour labs
[2016-10-12] MEDS ORDERED: ACETAMINOPHEN 325 MG TABLET PO PRN (16:43)
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
[2016-10-12] MEDS ORDERED: VANCOMYCIN INJ 750 MG in SODIUM CHLORIDE 0.9% 250 ML IV SCH (18:00)
[2016-10-12] MEDS: VANCOMYCIN INJ 750 MG in SODIUM CHLORIDE 0.9% 250 ML IV SCH (20:33)
[2016-10-13] MEDS: ALBUTEROL/IPRATROPIUM 3 ML NEB RESP TX SCH ×4 (00:47→20:00)
[2016-10-13] MEDS: PIPERACILLIN/TAZOBACTAM 3,375 MG in SODIUM CHLORIDE 0.9% 100 ML IV SCH ×2 (01:00→10:34)
[2016-10-13 06:34] LABS: Calcium 8.9 MG/DL (8.5-10.1); Osmolality,Calculated 276.7 MOS/KG (273-304); Potassium 4.2 MMOL/L (3.5-5.1)
[2016-10-13] MEDS: VANCOMYCIN INJ 750 MG in SODIUM CHLORIDE 0.9% 250 ML IV SCH (06:45)
[2016-10-13 06:47] LABS: Basophils % 0.5 % (0.0-0.8); Eosinophils # 0.1 10*3/uL (0.0-0.87); Eosinophils % 1.4 % (0.00-10.9); Hematocrit 32.8 VOL% (42.0-52.0); Hemoglobin 10.8 GM/DL (14.0-18.0); Immature Granulocytes % 0.8 %; Immature Granulocytes Absolute 0.05 #; Lymphocytes # 2.3 10*3/uL (1.4-4.0); Lymphocytes % 34.6 % (21.2-54.2); Mean Corpuscular HGB Conc 32.9 GM/DL (32-36); Mean Corpuscular Hemoglobin 32 PG (27-34); Mean Corpuscular Volume 96.5 FL (87-102); Mean Platelet Volume 9.6 FL (9.6-12.0); Monocytes # 0.6 10*3/uL (0.11-0.8); Monocytes % 9.1 % (1.7-12.7); Neutrophils # 3.5 10*3/uL (1.4-7.4); Neutrophils % 53.6 % (38.7-73.9); Platelet Count 416 T/CUMM (130-400); Red Cell Distribution Width 13.8 % (9.3-17.3); White Blood Count 6.6 T/CUMM (4-12)
[2016-10-13] MEDS: PHENYTOIN ER 100 MG CAPSULE PO SCH ×3 (10:35→21:08)
[2016-10-13] MEDS: ASPIRIN CHEW 81 MG TABLET PO SCH (10:35)
[2016-10-13] MEDS: FUROSEMIDE 40 MG/4 ML VIAL IV SCH (10:36)
[2016-10-13] MEDS: ENOXAPARIN 60 MG/0.6 ML SYRINGE SUBCUT SCH ×2 (10:36→21:08)
[2016-10-13] MEDS: PANTOPRAZOLE 40 MG VIAL IV SCH (10:36)
[2016-10-13] MEDS: CARVEDILOL 3.125 MG TABLET PO SCH ×2 (10:36→20:15)
--- NOTE | 2016-10-13 12:42 | Pulmonology Progress Note ---
Pulmonary - PN: Subj Interval history: Patient is a 61-year-old black man that had seizures and was intubated. He had left lung pneumonia and likely aspirated. His lungs cleared up and he came off the ventilator okay. He is not having any further seizures. He looks like he feels better today and is walking around more. He still has some very mild stridor from his ET tube. He gets a little short of breath at times but otherwise is doing okay Exam (Progress Note) - Constitutional Vitals: Period Temp Pulse Resp BP Sys/Syed Pulse Ox Last 24 Hr 96.8 F-101.3 F 68-118 18-22 103-125/56-69 97-100 Exam: General appearance: normal weight, other (He is walking around and looks like he feels better. He still has some slight hoarseness.) - Head Head exam: Present: normal inspection, normocephalic - Eye Eye exam: Present: EOMI. Absent: scleral icterus Pupils: Present: MAAME - ENT ENT exam: Present: normal exam, he has a raspy voice. - Neck Neck exam: Present: normal inspection. Absent: lymphadenopathy, thyromegaly - Respiratory Respiratory exam: Present: His lungs have good breath sounds and his lungs sound reasonably clear without any wheezing. He does have a slight stridor. - Cardiovascular Cardiovascular exam: Present: regular rate and rhythm. Absent: gallop, systolic murmur - GI/Abdominal GI/Abdominal exam: Present: normal bowel sounds, soft. Absent: distended, organomegaly, tenderness - Extremities Exam Extremities exam: Present: He does not have any leg swelling or tenderness now. - Neurological Exam Neurological exam: Present: other (He is ambulating and moving around better.) - Skin Skin exam: Present: warm, dry Results - Labs CBC & BMP: 10/13/16 04:00 10/13/16 04:00 Assessment and Plan (1) Status epilepticus Status: Acute Assessment and plan: The patient has seizures and is getting medications now. He appears to be stable at present. He has not had any further seizures. Neurologically he seems to be stable. He is starting to ambulate more. Current Visit: Yes (2) Acute respiratory failure Status: Resolved Assessment and plan: The patient came off the ventilator now and is doing better. He has some cough and hoarseness but does not seem to be having too much trouble breathing. His chest x-ray is much better now. We will try to adjust his medicines. Current Visit: Yes (3) Aspiration pneumonia Status: Acute Assessment and plan: The patient has had some aspiration pneumonia but this is doing better now. His x-ray is clear now and is chest congestion is better. Current Visit: Yes (4) COPD (chronic obstructive pulmonary disease) Status: Chronic Assessment and plan: We will start him on some inhaled steroids and bronchodilators. Current Visit: No
[2016-10-13] MEDS: BUDESONIDE/FORMOTEROL 160-4.5 INHALER 6 GM INH SCH ×2 (15:08→21:09)
--- NOTE | 2016-10-13 15:58 | Hospitalist Progress Note ---
Assessment and Plan - Time spent with patient Time spent with patient: Greater than 30 minutes (1) Weakness Status: Acute Assessment and plan: Generalized weakness, no focal defecits. PT/OT, SW. Current Visit: Yes (2) Seizure disorder Status: Chronic Assessment and plan: Continue current management. Current Visit: Yes (3) Aspiration pneumonia Status: Acute Assessment and plan: Given the elevated temperature yesterday, I started vancomycin. Current Visit: Yes (4) COPD with acute bronchitis Status: Acute Assessment and plan: Continue current management. Current Visit: No Hospitalist: Subjective Interval history: Patient complains of continued hoarse voice and stridor. He had an elevated temperature yesterday and was initiated on vancomycin. Exam - Constitutional Vitals: Period Temp Pulse Resp BP Sys/Syed Pulse Ox Last 24 Hr 96.8 F-101.3 F 68-118 18-22 103-125/56-69 97-100 General appearance: no acute distress - Head Head exam: Present: normocephalic, atraumatic - Eye Eye exam: Present: EOMI Pupils: Present: MAAME - ENT ENT exam: Present: normal exam - Neck Neck exam: Present: normal inspection - Respiratory Respiratory exam: Present: clear to auscultation bilaterally, stridor. Absent: rhonchi, wheezes - Cardiovascular Cardiovascular exam: Present: regular rate and rhythm. Absent: gallop, rubs, systolic murmur - GI/Abdominal GI/Abdominal exam: Present: normal bowel sounds, soft. Absent: distended, firm , guarding, tenderness, rebound - Extremities Exam Extremities exam: Present: normal inspection. Absent: calf tenderness, edema Results - Labs CBC & BMP: 10/13/16 04:00 10/13/16 04:00 Lab Results: I have reviewed the past 24 hour labs
[2016-10-13] MEDS: CEFUROXIME 250 MG TABLET PO SCH (21:08)
[2016-10-14] MEDS: ALBUTEROL/IPRATROPIUM 3 ML NEB RESP TX SCH ×4 (01:19→19:00)
[2016-10-14] MEDS: PHENOL 1.4% THROAT SPRAY 177 ML BOTTLE PO PRN (05:15)
[2016-10-14 06:56] LABS: Basophils # 0.1 10*3/uL (0.0-0.2); Eosinophils # 0.1 10*3/uL (0.0-0.87); Eosinophils % 2.9 % (0.00-10.9); Hematocrit 30.4 VOL% (42.0-52.0); Hemoglobin 9.8 GM/DL (14.0-18.0); Immature Granulocytes % 0.2 %; Immature Granulocytes Absolute 0.01 #; Lymphocytes # 2.6 10*3/uL (1.4-4.0); Lymphocytes % 54.7 % (21.2-54.2); Mean Corpuscular HGB Conc 32.2 GM/DL (32-36); Mean Corpuscular Hemoglobin 31 PG (27-34); Mean Corpuscular Volume 96.2 FL (87-102); Mean Platelet Volume 10.2 FL (9.6-12.0); Monocytes # 0.5 10*3/uL (0.11-0.8); Monocytes % 9.4 % (1.7-12.7); Neutrophils # 1.5 10*3/uL (1.4-7.4); Neutrophils % 31.8 % (38.7-73.9); Platelet Count 453 T/CUMM (130-400); Red Blood Count 3.16 MC/CUMM (3.8-5.5); Red Cell Distribution Width 13.6 % (9.3-17.3); White Blood Count 4.8 T/CUMM (4-12)
[2016-10-14 07:25] LABS: Hypochromasia 2+; Microcytosis Slight
[2016-10-14 07:34] LABS: Calcium 9.1 MG/DL (8.5-10.1); Osmolality,Calculated 279.4 MOS/KG (273-304); Potassium 4.7 MMOL/L (3.5-5.1)
[2016-10-14] MEDS: CARVEDILOL 3.125 MG TABLET PO SCH ×2 (08:39→20:35)
[2016-10-14] MEDS: PHENYTOIN ER 100 MG CAPSULE PO SCH ×3 (08:39→20:37)
[2016-10-14] MEDS: CEFUROXIME 250 MG TABLET PO SCH ×2 (08:39→20:37)
[2016-10-14] MEDS: CLORAZEPATE 7.5 MG TABLET PO PRN (08:40)
[2016-10-14] MEDS: FAMOTIDINE 20 MG TABLET PO SCH (08:40)
[2016-10-14] MEDS: ASPIRIN CHEW 81 MG TABLET PO SCH (08:40)
[2016-10-14] MEDS: BUDESONIDE/FORMOTEROL 160-4.5 INHALER 6 GM INH SCH ×2 (08:46→20:39)
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
--- NOTE | 2016-10-14 11:56 | Pulmonology Progress Note ---
Pulmonary - PN: Subj Interval history: Patient is a 61-year-old black man that had seizures and was intubated. He had left lung pneumonia and likely aspirated. His lungs cleared up and he came off the ventilator okay. He is not having any further seizures. He looks like he feels better today and is walking around more. He still has some very mild stridor from his ET tube. He gets a little short of breath at times but otherwise is doing okay. He still having some hoarseness and ENT is going to evaluate. He is walking around and his breathing is doing okay. Exam (Progress Note) - Constitutional Vitals: Period Temp Pulse Resp BP Sys/Syed Pulse Ox Last 24 Hr 97.4 F-98.7 F 68-92 16-21 93-121/64-70 97-100 Exam: General appearance: normal weight, other (He is walking around and looks like he feels better. He still has some slight hoarseness. He has not had any respiratory distress.) - Head Head exam: Present: normal inspection, normocephalic - Eye Eye exam: Present: EOMI. Absent: scleral icterus Pupils: Present: MAAME - ENT ENT exam: Present: normal exam, he has a raspy voice. He does have mild stridor - Neck Neck exam: Present: normal inspection. Absent: lymphadenopathy, thyromegaly - Respiratory Respiratory exam: Present: His lungs have good breath sounds and his lungs sound reasonably clear without any wheezing. He does have a slight stridor. - Cardiovascular Cardiovascular exam: Present: regular rate and rhythm. Absent: gallop, systolic murmur - GI/Abdominal GI/Abdominal exam: Present: normal bowel sounds, soft. Absent: distended, organomegaly, tenderness - Extremities Exam Extremities exam: Present: He does not have any leg swelling or tenderness now. - Neurological Exam Neurological exam: Present: other (He is ambulating and moving around better.) - Skin Skin exam: Present: warm, dry Results - Labs CBC & BMP: 10/14/16 05:32 10/14/16 05:32 Assessment and Plan (1) Status epilepticus Status: Acute Assessment and plan: The patient has seizures and is getting medications now. He appears to be stable at present. He has not had any further seizures. Neurologically he seems to be stable. He is starting to ambulate more. He has no focal deficits. Current Visit: Yes (2) Acute respiratory failure Status: Resolved Assessment and plan: The patient came off the ventilator now and is doing better. He has some cough and hoarseness but does not seem to be having too much trouble breathing. His chest x-ray is much better now. We will try and bronchodilator therapy. ENT is going to evaluate his voice. Current Visit: Yes (3) Aspiration pneumonia Status: Acute Assessment and plan: The patient has had some aspiration pneumonia but this is doing better now. His x-ray is clear now and is chest congestion is better. His pneumonia has basically resolved now. Current Visit: Yes (4) COPD (chronic obstructive pulmonary disease) Status: Chronic Assessment and plan: We will start him on some inhaled steroids and bronchodilators. His respiratory status is stable. Current Visit: No Specialty Discharge - Follow Up or Referrals Follow up with: Boyd Holguin DO [Physician] - 10/20/16 8:30 am
--- NOTE | 2016-10-14 13:02 | Hospitalist Progress Note ---
Assessment and Plan - Time spent with patient Time spent with patient: Greater than 30 minutes (1) Stridor Status: Acute Assessment and plan: Dr Mello vick noted. Will order tests. Current Visit: Yes (2) Weakness Status: Acute Assessment and plan: Generalized weakness, improving. Current Visit: Yes (3) Seizure disorder Status: Chronic Assessment and plan: Continue current management. Current Visit: Yes (4) Aspiration pneumonia Status: Acute Assessment and plan: No elevation in his temperature, fully treated, abx discontinued. Current Visit: Yes (5) COPD with acute bronchitis Status: Acute Assessment and plan: Continue current management. Current Visit: No Hospitalist: Subjective Interval history: No new complaints or overnight events. Still has stridor. Has been seen by ENT physician, DR Holguin for this. Exam - Constitutional Vitals: Period Temp Pulse Resp BP Sys/Syed Pulse Ox Last 24 Hr 97.4 F-98.7 F 68-92 16-21 93-121/64-70 97-100 General appearance: no acute distress - Head Head exam: Present: normocephalic, atraumatic - Eye Eye exam: Present: EOMI Pupils: Present: MAAME - ENT ENT exam: Present: normal exam - Neck Neck exam: Present: normal inspection - Respiratory Respiratory exam: Present: clear to auscultation bilaterally. Absent: rhonchi, wheezes - Cardiovascular Cardiovascular exam: Present: regular rate and rhythm. Absent: gallop, rubs, systolic murmur - GI/Abdominal GI/Abdominal exam: Present: normal bowel sounds, soft. Absent: distended, firm , guarding, tenderness, rebound - Extremities Exam Extremities exam: Present: normal inspection. Absent: calf tenderness, edema Results - Labs CBC & BMP: 10/14/16 05:32 10/14/16 05:32 Lab Results: I have reviewed the past 24 hour labs Specialty Discharge - Follow Up or Referrals Follow up with: Boyd Holguin DO [Physician] - 10/20/16 8:30 am
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
[2016-10-14] MEDS: ENOXAPARIN 60 MG/0.6 ML SYRINGE SUBCUT SCH ×2 (13:58→20:37)
[2016-10-15] MEDS: CLORAZEPATE 7.5 MG TABLET PO PRN (00:14)
[2016-10-15] MEDS: ALBUTEROL/IPRATROPIUM 3 ML NEB RESP TX SCH ×2 (00:27→07:32)
[2016-10-15] MEDS: BUDESONIDE/FORMOTEROL 160-4.5 INHALER 6 GM INH SCH (10:42)
[2016-10-15] MEDS: ASPIRIN CHEW 81 MG TABLET PO SCH (10:43)
[2016-10-15] MEDS: PHENYTOIN ER 100 MG CAPSULE PO SCH (10:43)
[2016-10-15] MEDS: CEFUROXIME 250 MG TABLET PO SCH (10:43)
[2016-10-15] MEDS: ENOXAPARIN 60 MG/0.6 ML SYRINGE SUBCUT SCH (10:44)
[2016-10-15] MEDS: CARVEDILOL 3.125 MG TABLET PO SCH (10:44)
[2016-10-15] MEDS: FAMOTIDINE 20 MG TABLET PO SCH (10:44)
--- NOTE | 2016-10-15 11:15 | Discharge Summary ---
Hospital Course - Hospital Course Hospital Course: Mr. Mora presented with status epilepticus was intubated with some difficulty as documented in the history and physical in the ER and admitted to the intensive care unit. CT head was negative for bleed. Patient was initiated on phenobarbital IV every 12 hours. Chest x-ray revealed aspiration pneumonia and the patient was initiated on antibiotics. He was seen in consultation by pulmonary and neurology. While in the intensive care unit on the vent the patient had a bronchoscopy which revealed no signs of significant aspiration. However the left lower lobe was washed and washings were sent for culture. Bronchial washings were negative for growth. Patient was successfully extubated and transferred to the floor for further observation and care. While on the floor, IV antibiotics were continued. Patient had notable stridor which prompted an ENT consultation. Workup by ENT revealed left vocal cord paralysis and recommendation for CT of the neck. 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 Of note, the patient's intubation on presentation was noted to be difficult and this was felt to be due to tracheal stenosis, now confirmed by CT imaging. Patient improved on his medical therapy however continue to have a hoarse voice and mild stridor. By discharge he had met maximum benefit of hospitalization. He will follow-up with his primary care provider Dr. Sawyer and Dr. Holugin as an outpatient. His medication list was updated and the patient was educated. I spent 45 minutes coordinating this discharge. - Time spent with patient Time with patient DS: Greater than 30 minutes Diagnosis - Discharge Diagnosis (1) Stridor Status: Acute (2) Weakness Status: Acute (3) Seizure disorder Status: Chronic (4) Aspiration pneumonia Status: Acute (5) COPD with acute bronchitis Status: Acute Specialty Discharge - Follow Up or Referrals Follow up with: Boyd Holguin DO [Physician] - 10/20/16 8:30 am Shellie Sawyer DO [Physician] - 1 Week (CALL MONDAY (10/18/2016) TO SCHEDULE A FOLLOW-UP APPOINTMENT FOR ONE WEEK AFTER DISCHARGE.) Discharge Plan - Discharge Data Disposition: Disch To Home/Self Care Condition at Discharge: Stable Discharge Diet: advance to your usual diet Activity: resume usual activities as tolerated Hygiene: no restrictions - Discharge Medications New Cefuroxime Tab [Ceftin] 250 mg PO BID #6 tablet Phenytoin ER Cap [Dilantin Cap] 100 mg PO TID #90 capsule Continue Aspirin [Ecotrin] 81 mg PO DAILY #30 tablet Multivitamin with Minerals [One Daily Complete] 1 each PO DAILY #100 tablet Albuterol Inhaler [Proventil Inhaler] 2 puff INH Q4H PRN #1 inhaler PRN Reason: Shortness Of Breath/Wheezing Furosemide Tab [Lasix Tab] 80 mg PO BID DIURETIC #60 tablet Lisinopril 10 mg PO DAILY #60 tablet Budesonide/Formoterol 160-4.5 [Symbicort 160-4.5] 2 puff INH BID #1 inhaler Carvedilol [Coreg] 3.125 mg PO BID #100 tablet Discontinued Cefuroxime Tab [Ceftin] 500 mg PO BID #10 tablet Carvedilol [Coreg] 3.125 mg PO BID #60 tablet - Follow Up or Referral Follow Up: Boyd Holguin DO [Physician] - 10/20/16 8:30 am Shellie Sawyer DO [Physician] - 1 Week (CALL MONDAY (10/18/2016) TO SCHEDULE A FOLLOW-UP APPOINTMENT FOR ONE WEEK AFTER DISCHARGE.) - Forms/Instructions Instructions: Aspiration Pneumonia (DC), Status Epilepticus (DC) Exam - Constitutional Vitals: Period Temp Pulse Resp BP Sys/Syed Pulse Ox Last 24 Hr 98 F-98.6 F 64-86 16-20 107-122/60-78 98-100 General appearance: normal weight, no acute distress - Head Head exam: Present: normal inspection, normocephalic, atraumatic - Eye Eye exam: Present: EOMI Pupils: Present: MAAME - ENT ENT exam: Present: normal exam - Neck Neck exam: Present: normal inspection - Respiratory Respiratory exam: Present: clear to auscultation bilaterally. Absent: accessory muscle use, prolonged expiratory phase, wheezes - Cardiovascular Cardiovascular exam: Present: regular rate and rhythm. Absent: bradycardia, irregular rhythm, systolic murmur - GI/Abdominal GI/Abdominal exam: Present: normal bowel sounds. Absent: ascites, distended, hypoactive bowel sounds, tenderness - Extremities Exam Extremities exam: Present: normal inspection. Absent: normal capillary refill, full ROM Discharge Results Procedures and tests throughout hospitalization: Pending Orders 10/12/16 17:00 Blood Culture Stat Labs on day of discharge: Preliminary micro results at discharge 10/12/16 17:00 Blood Culture - Preliminary Blood No growth at 1 day 10/12/16 17:00 Blood Culture - Preliminary Blood No growth at 1 day DS: Provider Date of admission: 10/03/16 14:55 Primary care physician: . No PCP Attending physician on admission: Loree Araiza MD Consults: 10/03/16 15:27 Consult to Physician [CONS] Routine Comment: status epilepticus Consulting Provider: Yonny Arroyo Person Notified: marnie Date Notified: 10/04/16 Time Notified: 10:15 10/03/16 15:32 Consult to Case Mgmt/Social Srvs [CONS] Routine Reason for Case Mgmt/Social Srvs: Other Discharge Planning Consult Comment: who is he? 10/03/16 15:59 Consult to Physician [CONS] Routine Comment: Consulting Provider: Darren Sawyer Consult to Specialist Group: Pulmonology When should Consulting Provider be notified: Now Person Notified: Dr. Sawyer Date Notified: 10/03/16 Time Notified: 19:33 Consult Notification Comment: New vent orders received. 10/03/16 16:02 Consult to Dietitian [CONS] Routine Reason for Dietitian: TF-Initiate/Manage 10/03/16 20:05 Consult to Dietitian [CONS] Routine Reason for Dietitian: Dietary Consult 10/09/16 14:42 Consult to Occupational Therapy [CONS] Routine Reason for Occupational Therapy: Evaluate and Treat Consult to Physical Therapy [CONS] Routine Reason for Physical Therapy: Evaluate and Treat 10/13/16 15:46 Consult to Physician [CONS] Routine Comment: Consulting Provider: Boyd Holguin Consulting Provider Notified: Yes When should Consulting Provider be notified: Now Consult to Specialist Group: ENT Person Notified: Anna Date Notified: 10/13/16 Time Notified: 16:33 Discharging clinician: Dang Holloway MD Expected date of discharge: 10/15/16
[2016-10-15 12:55] VITALS: BP 121/83
== END 2016-10-15 15:20 | disposition home or self-care (01) | DRG 100 ==
LOC: EDBD → N.ED 14:06 → N.EDINP 14:55 → SUATTDRO 14:55 → N.CC 18:00 → N.2E 10-08 11:18
PROVIDERS: ADMIT Internal Medicine; ATTEND Internal Medicine

== ENCOUNTER 2016-11-23 11:57 | Inpatient (IN) ==
[2016-11-23 12:22] LABS: Basophils # 0.1 10*3/uL (0.0-0.2); Basophils % 0.7 % (0.0-0.8); Eosinophils % 0.1 % (0.00-10.9); Hemoglobin 13.3 GM/DL (14.0-18.0); Immature Granulocytes % 0.3 %; Immature Granulocytes Absolute 0.02 #; Lymphocytes # 2.7 10*3/uL (1.4-4.0); Lymphocytes % 40.6 % (21.2-54.2); Mean Corpuscular HGB Conc 34.1 GM/DL (32-36); Mean Corpuscular Hemoglobin 32 PG (27-34); Mean Corpuscular Volume 92.4 FL (87-102); Mean Platelet Volume 10.4 FL (9.6-12.0); Monocytes # 0.6 10*3/uL (0.11-0.8); Monocytes % 8.5 % (1.7-12.7); Neutrophils # 3.3 10*3/uL (1.4-7.4); Neutrophils % 49.8 % (38.7-73.9); Platelet Count 209 T/CUMM (130-400); Red Blood Count 4.22 MC/CUMM (3.8-5.5); Red Cell Distribution Width 12.8 % (9.3-17.3); White Blood Count 6.7 T/CUMM (4-12)
--- NOTE | 2016-11-23 12:28 | XRay Report ---
XR chest 1V portable Indication: SOB Comparison: Chest x-ray dated October 12, 2016 Technique: Single frontal view of the chest. Findings: Continued cardiomegaly. Hazy opacification throughout the left mid and lower lung suspicious for pneumonia or asymmetric pulmonary edema. Visualized osseous and surrounding soft tissue structures appear grossly unchanged. Multiple subcentimeter round metallic foreign bodies again project over the chest and upper abdomen. IMPRESSION: As above. PROCEDURE INTERPRETED AT [facility] DEPARTMENT OF RADIOLOGY Final Report Signed by: Dr Juan Aguirre
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
[2016-11-23 12:35] LABS: INR 1.2; PT Patient Result 12.7 SECS; Partial Thromboplastin Time 26.6 SECS (0-40)
[2016-11-23 12:59] LABS: Alanine Aminotransferase 30 U/L (16-61); Albumin 3.6 G/DL (3.4-5.0); Alkaline Phosphatase 186 U/L (45-117); Aspartate Amino Transferase 23 U/L (0-37); Blood Urea Nitrogen 25 MG/DL (7-18); Calcium 8.9 MG/DL (8.5-10.1); Glucose 113 MG/DL (74-106); Osmolality,Calculated 283.4 MOS/KG (273-304); Potassium 4.7 MMOL/L (3.5-5.1); Sodium 140 MMOL/L (136-145); Total Protein 6.4 G/DL (6.4-8.3); Troponin I Only 0.097 NG/ML (0.00-0.045)
[2016-11-23] MEDS ORDERED: FUROSEMIDE 40 MG/4 ML VIAL IV STA (13:20)
[2016-11-23] MEDS ORDERED: FUROSEMIDE 40 MG/4 ML VIAL ONE (13:55)
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
[2016-11-23] MEDS ORDERED: MAGNESIUM SULF RIDER 2 GM in PREMIX 1 EACH IV PRN (14:56)
[2016-11-23] MEDS ORDERED: MAGNESIUM SULF RIDER 4 GM in PREMIX 1 EACH IV PRN (14:56)
[2016-11-23] MEDS ORDERED: ACETAMINOPHEN 325 MG TABLET PO PRN ×2 (14:56→23:04)
[2016-11-23] MEDS ORDERED: POTASSIUM CHLORIDE 20 MEQ TABLET PO PRN (14:56)
[2016-11-23] MEDS ORDERED: ALBUTEROL/IPRATROPIUM 3 ML NEB RESP TX PRN (15:01)
[2016-11-23] MEDS: PHENYTOIN ER 100 MG CAPSULE PO SCH ×2 (15:35→22:25)
[2016-11-23] MEDS: FUROSEMIDE 20 MG/2 ML VIAL IV SCH (15:35)
[2016-11-23] MEDS: LISINOPRIL 10 MG TABLET PO SCH (15:35)
[2016-11-23] MEDS: CARVEDILOL 3.125 MG TABLET PO SCH (16:19)
[2016-11-23] MEDS ORDERED: ONDANSETRON 4 MG/2 ML VIAL IV PRN (21:27)
[2016-11-23 22:10] LABS: Troponin I Only 0.101 NG/ML (0.00-0.045)
[2016-11-23] MEDS: CLORAZEPATE 7.5 MG TABLET PO PRN (22:28)
[2016-11-23] MEDS ORDERED: DICYCLOMINE 10 MG CAPSULE PO PRN (23:03)
[2016-11-23] MEDS ORDERED: LISINOPRIL 10 MG TABLET PO ONE (23:30)
[2016-11-24] MEDS: ALBUTEROL/IPRATROPIUM 3 ML NEB RESP TX PRN ×3 (00:48→19:58)
[2016-11-24 05:36] LABS: Basophils # 0.1 10*3/uL (0.0-0.2); Basophils % 0.9 % (0.0-0.8); Eosinophils % 0.3 % (0.00-10.9); Hematocrit 37.7 VOL% (42.0-52.0); Hemoglobin 13.1 GM/DL (14.0-18.0); Immature Granulocytes % 0.1 %; Immature Granulocytes Absolute 0.01 #; Lymphocytes # 2.8 10*3/uL (1.4-4.0); Lymphocytes % 40.5 % (21.2-54.2); Mean Corpuscular HGB Conc 34.7 GM/DL (32-36); Mean Corpuscular Hemoglobin 32 PG (27-34); Mean Corpuscular Volume 91.3 FL (87-102); Mean Platelet Volume 10.8 FL (9.6-12.0); Monocytes # 0.6 10*3/uL (0.11-0.8); Neutrophils # 3.5 10*3/uL (1.4-7.4); Neutrophils % 50.2 % (38.7-73.9); Platelet Count 217 T/CUMM (130-400); Red Blood Count 4.13 MC/CUMM (3.8-5.5); Red Cell Distribution Width 12.6 % (9.3-17.3)
[2016-11-24 06:13] LABS: Osmolality,Calculated 277.8 MOS/KG (273-304); Potassium 4.4 MMOL/L (3.5-5.1)
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
--- NOTE | 2016-11-24 08:11 | EKG Report ---
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
[2016-11-24] MEDS: FUROSEMIDE 20 MG/2 ML VIAL IV SCH ×3 (08:30→21:28)
[2016-11-24] MEDS: PHENYTOIN ER 100 MG CAPSULE PO SCH ×3 (08:31→21:25)
[2016-11-24] MEDS: LISINOPRIL 10 MG TABLET PO SCH (08:31)
[2016-11-24] MEDS: CARVEDILOL 3.125 MG TABLET PO SCH ×2 (08:31→16:06)
[2016-11-24] MEDS: CLORAZEPATE 7.5 MG TABLET PO PRN ×2 (12:49→21:32)
--- NOTE | 2016-11-24 15:13 | Hospitalist Progress Note ---
Assessment and Plan (1) SOB (shortness of breath) Status: Acute Assessment and plan: Remains on 2 L nasal cannula oxygen therapy. Current Visit: No (2) Congestive heart failure Status: Acute Assessment and plan: Continue with scheduled Lasix 20 mg IV every 6 hours. Repeat BMP in a.m. Follow-up chest x-ray in a.m. Strict I's and O's. Current Visit: No Qualifiers: Congestive heart failure type: systolic Congestive heart failure chronicity : acute on chronic Qualified Code(s): I50.23 - Acute on chronic systolic ( congestive) heart failure (3) Pleural effusion Status: Acute Current Visit: No (4) Dyspnea Status: Acute Current Visit: No (5) Essential hypertension Status: Chronic Current Visit: No (6) Medical non-compliance Status: Chronic Current Visit: No (7) Nicotine addiction Status: Chronic Current Visit: No (8) Polysubstance abuse Status: Acute Assessment and plan: This hospitalization patient admitted to using spice over the holiday weekend. Current Visit: No (9) Pneumonia Status: Acute Assessment and plan: Follow-up x-ray shows evidence of pneumonia. Start Zosyn 3.375 g IV every 6 hour. Current Visit: Yes Hospitalist: Subjective Interval history: The patient still requires oxygen therapy due to shortness of breath. On exam he has increased wheezing throughout. Chest x-ray shows volume overload and probably a component of pneumonia. No fevers or chills. Exam - Constitutional Vitals: Period Temp Pulse Resp BP Sys/Syed Pulse Ox Last 24 Hr 96.9 F-98.9 F 95-115 16-24 124-153/96-121 98-100 General appearance: normal weight - Head Head exam: Present: normal inspection - ENT ENT exam: Present: normal exam - Neck Neck exam: Present: normal inspection - Respiratory Respiratory exam: Present: rales, wheezes - Cardiovascular Cardiovascular exam: Present: regular rate and rhythm - GI/Abdominal GI/Abdominal exam: Present: normal bowel sounds - Extremities Exam Extremities exam: Present: normal inspection - Neurological Exam Neurological exam: Present: alert, oriented X3, CN II-XII intact - Psychiatric Psychiatric exam: Present: normal affect, normal mood - Skin Skin exam: Present: normal color Results - Labs CBC & BMP: 11/24/16 05:18 11/24/16 05:18
[2016-11-24] MEDS: metOLazone 5 MG TABLET PO SCH (15:56)
[2016-11-24] MEDS: methylPREDNISolone SOD SUC 40 MG/1 ML VIAL IV SCH ×2 (15:57→21:25)
[2016-11-24] MEDS: PIPERACILLIN/TAZOBACTAM 3,375 MG in SODIUM CHLORIDE 0.9% 100 ML IV SCH (15:58)
[2016-11-25] MEDS: PIPERACILLIN/TAZOBACTAM 3,375 MG in SODIUM CHLORIDE 0.9% 100 ML IV SCH ×3 (00:03→17:18)
[2016-11-25] MEDS: methylPREDNISolone SOD SUC 40 MG/1 ML VIAL IV SCH ×4 (03:18→20:36)
[2016-11-25] MEDS: FUROSEMIDE 20 MG/2 ML VIAL IV SCH ×4 (03:24→20:36)
[2016-11-25] MEDS: ALBUTEROL/IPRATROPIUM 3 ML NEB RESP TX PRN ×2 (03:26→17:20)
[2016-11-25 04:58] LABS: Basophils % 0.2 % (0.0-0.8); Hematocrit 43.3 VOL% (42.0-52.0); Immature Granulocytes % 0.4 %; Immature Granulocytes Absolute 0.02 #; Lymphocytes # 1.2 10*3/uL (1.4-4.0); Lymphocytes % 21.3 % (21.2-54.2); Mean Corpuscular HGB Conc 34.6 GM/DL (32-36); Mean Corpuscular Hemoglobin 31 PG (27-34); Mean Corpuscular Volume 89.6 FL (87-102); Mean Platelet Volume 10.9 FL (9.6-12.0); Monocytes # 0.2 10*3/uL (0.11-0.8); Monocytes % 4.3 % (1.7-12.7); Neutrophils # 4.1 10*3/uL (1.4-7.4); Neutrophils % 73.8 % (38.7-73.9); Platelet Count 242 T/CUMM (130-400); Red Blood Count 4.83 MC/CUMM (3.8-5.5); Red Cell Distribution Width 12.2 % (9.3-17.3); White Blood Count 5.6 T/CUMM (4-12)
[2016-11-25 05:27] LABS: Calcium 8.6 MG/DL (8.5-10.1); Potassium 4.1 MMOL/L (3.5-5.1)
[2016-11-25] MEDS: metOLazone 5 MG TABLET PO SCH (08:54)
[2016-11-25] MEDS: CARVEDILOL 3.125 MG TABLET PO SCH ×2 (08:54→17:33)
[2016-11-25] MEDS: LISINOPRIL 10 MG TABLET PO SCH (08:54)
[2016-11-25] MEDS: PHENYTOIN ER 100 MG CAPSULE PO SCH ×3 (08:54→20:36)
--- NOTE | 2016-11-25 12:03 | XRay Report ---
XR chest 1V Indication: Shortness of breath. Volume overload. Comparison: Chest x-ray 11/24/2016. Technique: Portable AP chest was performed. Findings: Heart size is normal. Pulmonary vasculature appears within normal limits. No significant abnormality of the mediastinal contours demonstrated. Lungs are clear. Bones and soft tissues demonstrate no significant abnormalities. Impression: 1. Interval clearing of pulmonary edema and vascular congestive changes. 11/25/2016 12:00 PM PROCEDURE INTERPRETED AT [facility] DEPARTMENT OF RADIOLOGY Final Report Signed by: Dr. Carlos Jennings
--- NOTE | 2016-11-25 17:16 | Hospitalist Progress Note ---
Assessment and Plan (1) SOB (shortness of breath) Status: Acute Assessment and plan: Remains on 2 L nasal cannula oxygen therapy. Remains short of breath. BMP noted to be elevated. Current Visit: No (2) Congestive heart failure Status: Acute Assessment and plan: Continue with scheduled Lasix 20 mg IV every 6 hours. Repeat BMP in a.m. Follow-up chest x-ray in a.m. Strict I's and O's. Current Visit: No Qualifiers: Congestive heart failure type: systolic Congestive heart failure chronicity : acute on chronic Qualified Code(s): I50.23 - Acute on chronic systolic ( congestive) heart failure (3) Pleural effusion Status: Acute Current Visit: No (4) Dyspnea Status: Acute Current Visit: No (5) Essential hypertension Status: Chronic Current Visit: No (6) Medical non-compliance Status: Chronic Current Visit: No (7) Nicotine addiction Status: Chronic Current Visit: No (8) Polysubstance abuse Status: Acute Assessment and plan: This hospitalization patient admitted to using spice over the holiday weekend. Current Visit: No (9) Pneumonia Status: Acute Assessment and plan: Follow-up x-ray today shows clearing of infiltrates. Start Zosyn 3.375 g IV every 6 hour. Current Visit: Yes Hospitalist: Subjective Interval history: The patient complains of continued shortness of breath. His wheezing is improving. On today's visit, the patient's did admit he was using spice before admission. No fevers or chills. His follow-up chest x-ray today showed interval clearing of pulmonary edema. Follow-up with an echocardiogram Exam - Constitutional Vitals: Period Temp Pulse Resp BP Sys/Syed Pulse Ox Last 24 Hr 96.9 F-99.0 F 73-116 16-22 89-122/58-90 93-100 General appearance: normal weight - Head Head exam: Present: normal inspection - Eye Eye exam: Present: EOMI - Neck Neck exam: Present: normal inspection - Respiratory Respiratory exam: Present: clear to auscultation bilaterally. Absent: wheezes - Cardiovascular Cardiovascular exam: Present: regular rate and rhythm - Extremities Exam Extremities exam: Present: normal inspection - Back Exam Back exam: Present: normal inspection - Neurological Exam Neurological exam: Present: alert, oriented X3 - Psychiatric Psychiatric exam: Present: normal affect, normal mood - Skin Skin exam: Present: normal color Results - Labs CBC & BMP: 11/25/16 04:26 11/25/16 04:26
[2016-11-26] MEDS: PIPERACILLIN/TAZOBACTAM 3,375 MG in SODIUM CHLORIDE 0.9% 100 ML IV SCH ×3 (00:11→15:44)
[2016-11-26] MEDS: FUROSEMIDE 20 MG/2 ML VIAL IV SCH ×4 (03:46→20:57)
[2016-11-26] MEDS: methylPREDNISolone SOD SUC 40 MG/1 ML VIAL IV SCH ×4 (03:46→20:56)
[2016-11-26 05:55] LABS: Basophils % 0.1 % (0.0-0.8); Hematocrit 42.1 VOL% (42.0-52.0); Hemoglobin 14.6 GM/DL (14.0-18.0); Immature Granulocytes % 0.8 %; Immature Granulocytes Absolute 0.07 #; Lymphocytes # 1.3 10*3/uL (1.4-4.0); Lymphocytes % 14.4 % (21.2-54.2); Mean Corpuscular HGB Conc 34.7 GM/DL (32-36); Mean Corpuscular Hemoglobin 31 PG (27-34); Mean Corpuscular Volume 88.6 FL (87-102); Mean Platelet Volume 10.9 FL (9.6-12.0); Monocytes # 0.7 10*3/uL (0.11-0.8); Monocytes % 7.3 % (1.7-12.7); Neutrophils # 7.1 10*3/uL (1.4-7.4); Neutrophils % 77.4 % (38.7-73.9); Platelet Count 268 T/CUMM (130-400); Red Blood Count 4.75 MC/CUMM (3.8-5.5); White Blood Count 9.2 T/CUMM (4-12)
[2016-11-26 06:23] LABS: Calcium 8.6 MG/DL (8.5-10.1); Osmolality,Calculated 280.2 MOS/KG (273-304); Potassium 4.1 MMOL/L (3.5-5.1)
[2016-11-26] MEDS: metOLazone 5 MG TABLET PO SCH (09:56)
[2016-11-26] MEDS: LISINOPRIL 10 MG TABLET PO SCH (09:56)
[2016-11-26] MEDS: PHENYTOIN ER 100 MG CAPSULE PO SCH ×3 (09:57→20:57)
[2016-11-26] MEDS: CARVEDILOL 3.125 MG TABLET PO SCH ×2 (09:57→17:23)
--- NOTE | 2016-11-26 13:31 | Hospitalist Progress Note ---
Assessment and Plan (1) Systolic CHF, acute on chronic Status: Acute Assessment and plan: The patient is improving with diuresis. I am going to reduce benzodiazepine today due to the patient's sedation. We will recheck electrolytes and BNP in the morning. Current Visit: Yes Hospitalist: Subjective Interval history: The patient was admitted to hospital with shortness of breath. This is improving with appropriate diuresis. The patient's BNP is still greater than 3000. The patient is no longer tremulous. The patient is sleeping soundly and I am going to reduce benzodiazepine. Exam - Constitutional Vitals: Period Temp Pulse Resp BP Sys/Syed Pulse Ox Last 24 Hr 97.0 F-98.3 F 70-90 18-20 96-113/67-84 95-100 Exam: Constitutional System: Minimal distress. No tremulousness. The patient is sleeping soundly Head: Normocephalic, atraumatic. Ears, Nose and Throat System: No evidence of Otitis or Mastoiditis. No epistaxis or discharge Eyes System: Pupils equal, round, and reactive. Extraocular muscles intact. Neck: Supple, without adenopathy, 1+ jugular venous distention. No thyromegaly , neck mass, or prior surgery apparent. Respiratory System: Chest rales in bases to auscultation. Cardiovascular System: Heart with regular rate and rhythm. No murmur. GI System: Abdomen soft, nontender. Normo active bowel sounds present. Musculoskeletal System: limbs with 1+ pedal edema. Full distal pulses. Neurological System: No discernable sensory deficit. No aphasia Psychiatric System: Conversation is rational Results - Labs CBC & BMP: 11/26/16 05:17 11/26/16 05:17 Lab Results: I have reviewed the past 24 hour labs
[2016-11-26] MEDS: CLORAZEPATE 3.75 MG TABLET PO SCH (20:57)
[2016-11-27] MEDS: PIPERACILLIN/TAZOBACTAM 3,375 MG in SODIUM CHLORIDE 0.9% 100 ML IV SCH ×3 (00:01→16:50)
[2016-11-27] MEDS: FUROSEMIDE 20 MG/2 ML VIAL IV SCH ×2 (04:09→11:27)
[2016-11-27] MEDS: methylPREDNISolone SOD SUC 40 MG/1 ML VIAL IV SCH ×3 (04:10→14:40)
[2016-11-27 06:29] LABS: Calcium 9.1 MG/DL (8.5-10.1); Magnesium 2.2 MG/DL (1.8-2.4); Osmolality,Calculated 278.4 MOS/KG (273-304); Potassium 4.3 MMOL/L (3.5-5.1)
--- NOTE | 2016-11-27 07:16 | ECHO Report ---
Andrea Mora Exam Date: 11/26/2016 11:03 Referring Physician: Technologist: Danyelle Gaming Age: 61 Ht (in): 64 Wt (lb): 106 Gender: M Exam Location: [facility] Echo Indications: CHF, SOB, HTN, elevated troponin BP: 96 / 83 HR: 70 Rhythm: Sinus Technical Quality: Good IMPRESSIONS Moderately increased left ventricular cavity size. Mild concentric left ventricular hypertrophy. Severely decreased left ventricular systolic function, left ventricular ejection fraction is at estimated at 10-15%. Mildly increased septal wall thickness. Mildly thickened mitral valve with mild mitral regurgitation. Mild tricuspid valve regurgitation. Trace tricuspid valve regurgitation. RVSP = 25 mm hg. + see below MEASUREMENTS (Male / Female) Normal Values 2D ECHO LV Diastolic Diameter PLAX 6.0 cm 4.2 - 5.9 / 3.9 - 5.3 cm LV Systolic Diameter PLAX 5.6 cm LV Fractional Shortening PLAX 6.0 % IVS Diastolic Thickness 1.1 cm 0.6 - 1.0 / 0.6 - 0.9 cm LVPW Diastolic Thickness 1.3 cm 0.6 - 1.0 / 0.6 - 0.9 cm RV Internal Dim ED PLAX 2.2 cm Aortic Root Diameter 2.6 cm LA Systolic Diameter LX 3.7 cm 3.0 - 4.0 / 2.7 - 3.8 cm DOPPLER TR Peak Velocity 192.0 cm/s TR Peak Gradient 14.7 mmHg FINDINGS Left Ventricle Mildly increased septal wall thickness. Moderately increased left ventricular cavity size. Mild concentric left ventricular hypertrophy. Severely decreased left ventricular systolic function, left ventricular ejection fraction is at estimated at 10-15%. Right Ventricle Mild increased right ventricular size. Right Atrium Moderately increased right atrial size. Left Atrium Moderately increased left atrial size. Mitral Valve Mildly thickened mitral valve with mild mitral regurgitation. Aortic Valve The aortic valve is trileaflet, delicate and has normal motion. Tricuspid Valve Morphologically normal tricuspid valve. Mild tricuspid valve regurgitation. Trace tricuspid valve regurgitation. RVSP = 25 mm hg Pulmonic Valve Morphologically normal pulmonic valve. Pericardium No pericardial effusion. Aorta Normal size aortic root and proximal ascending aorta. Padilla Aden MD (Electronically Signed) Final Date: 27 November 2016 07:15
[2016-11-27] MEDS: metOLazone 5 MG TABLET PO SCH (08:37)
[2016-11-27] MEDS: PHENYTOIN ER 100 MG CAPSULE PO SCH ×3 (08:37→22:26)
[2016-11-27] MEDS: CLORAZEPATE 3.75 MG TABLET PO SCH ×2 (08:37→22:25)
[2016-11-27] MEDS: LISINOPRIL 10 MG TABLET PO SCH (08:38)
[2016-11-27] MEDS: CARVEDILOL 3.125 MG TABLET PO SCH ×2 (08:38→16:57)
--- NOTE | 2016-11-27 12:45 | Hospitalist Progress Note ---
Assessment and Plan (1) Systolic CHF, acute on chronic Status: Acute Assessment and plan: The patient is improving with diuresis. I am going to reduce benzodiazepine again today due to the patient's sedation. I am going to decrease the steroid and decrease the diuretic. Current Visit: Yes Hospitalist: Subjective Interval history: The patient is resting quietly in bed today. He is unhappy with the number of medications that he is receiving each day. The patient requests reduction in medications. The patient is more alert today but has some slurring of speech probably on account of transiting Exam - Constitutional Vitals: Period Temp Pulse Resp BP Sys/Syed Pulse Ox Last 24 Hr 96.6 F-98.0 F 78-86 16-20 83-100/60-81 96-100 Exam: Constitutional System: Minimal distress. No tremulousness. The patient is mildly agitated Head: Normocephalic, atraumatic. Ears, Nose and Throat System: No evidence of Otitis or Mastoiditis. No epistaxis or discharge Eyes System: Pupils equal, round, and reactive. Extraocular muscles intact. Neck: Supple, without adenopathy, 1+ jugular venous distention. No thyromegaly , neck mass, or prior surgery apparent. Respiratory System: Chest rales in bases to auscultation. Cardiovascular System: Heart with regular rate and rhythm. No murmur. GI System: Abdomen soft, nontender. Normo active bowel sounds present. Musculoskeletal System: limbs with 1+ pedal edema. Full distal pulses. Neurological System: No discernable sensory deficit. No aphasia Psychiatric System: Conversation is rational Results - Labs CBC & BMP: 11/26/16 05:17 11/27/16 05:03 Lab Results: I have reviewed the past 24 hour labs
[2016-11-28] MEDS: PIPERACILLIN/TAZOBACTAM 3,375 MG in SODIUM CHLORIDE 0.9% 100 ML IV SCH ×3 (01:13→16:05)
[2016-11-28] MEDS: methylPREDNISolone SOD SUC 40 MG/1 ML VIAL IV SCH ×2 (01:14→12:59)
[2016-11-28] MEDS: PHENYTOIN ER 100 MG CAPSULE PO SCH ×3 (09:29→22:03)
[2016-11-28] MEDS: CARVEDILOL 3.125 MG TABLET PO SCH ×2 (09:29→17:00)
[2016-11-28] MEDS: FUROSEMIDE 20 MG/2 ML VIAL IV SCH (09:29)
[2016-11-28] MEDS: LISINOPRIL 10 MG TABLET PO SCH (09:29)
[2016-11-28] MEDS: metOLazone 5 MG TABLET PO SCH (09:29)
[2016-11-28] MEDS ORDERED: ONDANSETRON 4 MG/2 ML VIAL IV PRN (14:50)
--- NOTE | 2016-11-28 14:53 | Hospitalist Progress Note ---
Assessment and Plan (1) Systolic CHF, acute on chronic Status: Acute Assessment and plan: The patient is improving with diuresis. I am going to discontinue the IV steroid and continue the diuretic. The patient may need to start oral steroids tomorrow Current Visit: Yes Hospitalist: Subjective Interval history: The patient continues treatment for lung infection, bronchospasm, and cor pulmonale. The patient's metabolic encephalopathy improves on reduced dose of Tranxene. It is difficult to tell how much of the encephalopathy is due to withdrawal and how much is due to steroid effects. I am going to discontinue Solu-Medrol today and reduce Zofran dose. The patient's chest exam is improved and he is less breathless today. Agitation is improved but remains mild Exam - Constitutional Vitals: Period Temp Pulse Resp BP Sys/Syed Pulse Ox Last 24 Hr 97.4 F-98.7 F 79-91 16-22 86-107/62-72 96-100 Exam: Constitutional System: Minimal distress. No tremulousness. The patient is minimally agitated Head: Normocephalic, atraumatic. Ears, Nose and Throat System: No evidence of Otitis or Mastoiditis. No epistaxis or discharge Eyes System: Pupils equal, round, and reactive. Extraocular muscles intact. Neck: Supple, without adenopathy, 1+ jugular venous distention. No thyromegaly , neck mass, or prior surgery apparent. Respiratory System: Chest rales in bases to auscultation. Cardiovascular System: Heart with regular rate and rhythm. No murmur. GI System: Abdomen soft, nontender. Normo active bowel sounds present. Musculoskeletal System: limbs with 1+ pedal edema. Full distal pulses. Neurological System: No discernable sensory deficit. No aphasia Psychiatric System: Conversation is rational Results - Labs CBC & BMP: 11/26/16 05:17 11/27/16 05:03 Lab Results: I have reviewed the past 24 hour labs
[2016-11-28] MEDS: CLORAZEPATE 3.75 MG TABLET PO SCH (22:04)
[2016-11-29] MEDS: CARVEDILOL 3.125 MG TABLET PO SCH ×3 (09:10→23:45)
[2016-11-29] MEDS: PHENYTOIN ER 100 MG CAPSULE PO SCH ×3 (09:10→23:44)
[2016-11-29] MEDS: metOLazone 5 MG TABLET PO SCH (09:11)
[2016-11-29] MEDS: FUROSEMIDE 20 MG/2 ML VIAL IV SCH (09:11)
[2016-11-29] MEDS: PIPERACILLIN/TAZOBACTAM 3,375 MG in SODIUM CHLORIDE 0.9% 100 ML IV SCH ×2 (09:12)
[2016-11-29] MEDS: LISINOPRIL 10 MG TABLET PO SCH (12:50)
--- NOTE | 2016-11-29 14:18 | Hospitalist Progress Note ---
Assessment and Plan (1) Systolic CHF, acute on chronic Status: Acute Assessment and plan: The patient is improving with diuresis. The patient is now off IV steroids and IV antibiotic. the patient may need to start oral steroids tomorrow we will check CT scan of head to evaluate the slurred speech Current Visit: Yes Hospitalist: Subjective Interval history: Mr. Mora is resting quietly in bed today. His mood is balance. The patient does not accept IV medications at this time. I asked him to take Levaquin pills and continue with his other oral medications. The patient has some paranoid ideation. The patient is not agitated Exam - Constitutional Vitals: Period Temp Pulse Resp BP Sys/Syed Pulse Ox Last 24 Hr 97.2 F-98 F 73-92 16-20 91-107/63-77 99-100 Exam: Constitutional System: No distress. No tremulousness. The patient is not agitated Head: Normocephalic, atraumatic. Ears, Nose and Throat System: No evidence of Otitis or Mastoiditis. No epistaxis or discharge Eyes System: Pupils equal, round, and reactive. Extraocular muscles intact. Neck: Supple, without adenopathy, 1+ jugular venous distention. No thyromegaly , neck mass, or prior surgery apparent. Respiratory System: Chest rales in bases to auscultation. Cardiovascular System: Heart with regular rate and rhythm. No murmur. GI System: Abdomen soft, nontender. Normo active bowel sounds present. Musculoskeletal System: limbs with 1+ pedal edema. Full distal pulses. Neurological System: No discernable sensory deficit. No aphasia Psychiatric System: Conversation is rational Results - Labs CBC & BMP: 11/26/16 05:17 11/27/16 05:03 Lab Results: I have reviewed the past 24 hour labs
--- NOTE | 2016-11-29 15:16 | CT Report ---
CT head/brain wo con INDICATION: Altered mental status/confusion slurred speech The total DLP is 942 mGy*cm. COMPARISON: Noncontrast CT head dated 10/03/2016 Technique: Serial axial tomographic images of the brain were obtained without the use of intravenous contrast. Dose reduction: This CT exam was performed using one or more of the following dose reduction techniques: Automated exposure control, automated adjustment of the mA and/or KV according to patient size, or use of iterative reconstruction technique. Findings: Chronic hypodensity within the right parietal lobe is most compatible with remote infarct and encephalomalacic changes. Mild generalized atrophy is otherwise noted with mild prominence of the sulci and cortical volume loss. Periventricular white matter hypodensity changes are noted bilaterally which do not demonstrate mass effect and are nonspecific but favored to represent sequela of chronic microvascular ischemia. There is no evidence of vascular territory infarct or acute intracranial hemorrhage. The mazariegos-white matter differentiation is generally maintained. There is no hydrocephalus. The basilar cisterns are patent. The visualized paranasal sinuses, mastoid air cells and middle ear cavities are predominantly clear. The included orbits and their contents appear within normal limits. The visualized osseous structures and overlying soft tissues of the skull and face demonstrate no acute abnormality. IMPRESSION: No acute intracranial abnormality. Remote right parietal lobe encephalomalacic changes noted. Mild generalized atrophy. PROCEDURE INTERPRETED AT [facility] DEPARTMENT OF RADIOLOGY Final Report Signed by: Andrés Gallardo
[2016-11-29] MEDS: LEVOFLOXACIN 500 MG TABLET PO SCH ×2 (15:19→15:30)
[2016-11-29] MEDS: CLORAZEPATE 3.75 MG TABLET PO SCH (23:45)
[2016-11-30 04:42] LABS: Basophils % 0.6 % (0.0-0.8); Eosinophils # 0.1 10*3/uL (0.0-0.87); Eosinophils % 1.8 % (0.00-10.9); Hematocrit 47.1 VOL% (42.0-52.0); Hemoglobin 16.2 GM/DL (14.0-18.0); Immature Granulocytes % 0.3 %; Immature Granulocytes Absolute 0.02 #; Lymphocytes # 4.1 10*3/uL (1.4-4.0); Lymphocytes % 65.4 % (21.2-54.2); Mean Corpuscular HGB Conc 34.4 GM/DL (32-36); Mean Corpuscular Hemoglobin 31 PG (27-34); Mean Platelet Volume 9.9 FL (9.6-12.0); Monocytes # 0.4 10*3/uL (0.11-0.8); Monocytes % 6.6 % (1.7-12.7); Neutrophils # 1.6 10*3/uL (1.4-7.4); Neutrophils % 25.3 % (38.7-73.9); Platelet Count 406 T/CUMM (130-400); Red Blood Count 5.29 MC/CUMM (3.8-5.5); White Blood Count 6.2 T/CUMM (4-12)
[2016-11-30 05:16] LABS: Calcium 10.1 MG/DL (8.5-10.1); Magnesium 2.5 MG/DL (1.8-2.4); Osmolality,Calculated 275.4 MOS/KG (273-304); Potassium 4.1 MMOL/L (3.5-5.1)
[2016-11-30 05:22] LABS: Eosinophils 4 % (0-10); Hypochromasia 1+; Lymphocytes 65 % (20-55); Platelet Estimate Increased; Segmented Neutrophils 26 % (50-85); Total Cells Counted 100
[2016-11-30] MEDS: metOLazone 5 MG TABLET PO SCH ×2 (08:34→08:44)
[2016-11-30] MEDS: CARVEDILOL 3.125 MG TABLET PO SCH ×2 (08:34→22:00)
[2016-11-30] MEDS: PHENYTOIN ER 100 MG CAPSULE PO SCH ×3 (08:34→22:00)
[2016-11-30] MEDS: LISINOPRIL 10 MG TABLET PO SCH (08:34)
[2016-11-30] MEDS: LEVOFLOXACIN 500 MG TABLET PO SCH ×2 (08:34→08:44)
[2016-11-30] MEDS: FUROSEMIDE 40 MG TABLET PO SCH ×2 (08:35→08:44)
--- NOTE | 2016-11-30 18:09 | Hospitalist Progress Note ---
Assessment and Plan (1) Systolic CHF, acute on chronic Status: Acute Assessment and plan: The patient is improving with diuresis. The patient is now off IV steroids and IV antibiotic. the patient will start oral steroids. Current Visit: Yes Hospitalist: Subjective Interval history: The patient had an episode of fainting earlier today while going to the toilet. The patient does not complain of shortness of breath cough or chest pain. The patient's episode resolved and he feels back to baseline now. The patient remains weak. Exam - Constitutional Vitals: Period Temp Pulse Resp BP Sys/Syed Pulse Ox Last 24 Hr 97.0 F-98.3 F 80-93 18-20 86-109/56-82 96-100 Exam: Constitutional System: No distress. No tremulousness. The patient is not agitated Head: Normocephalic, atraumatic. Ears, Nose and Throat System: No evidence of Otitis or Mastoiditis. No epistaxis or discharge Eyes System: Pupils equal, round, and reactive. Extraocular muscles intact. Neck: Supple, without adenopathy, 1+ jugular venous distention. No thyromegaly , neck mass, or prior surgery apparent. Respiratory System: Chest rales in bases to auscultation. Cardiovascular System: Heart with regular rate and rhythm. No murmur. GI System: Abdomen soft, nontender. Normo active bowel sounds present. Musculoskeletal System: limbs with 1+ pedal edema. Full distal pulses. Neurological System: No discernable sensory deficit. No aphasia Psychiatric System: Conversation is rational Results - Labs CBC & BMP: 11/30/16 04:22 11/30/16 04:22 Lab Results: I have reviewed the past 24 hour labs
[2016-11-30] MEDS: CLORAZEPATE 3.75 MG TABLET PO SCH (21:59)
[2016-12-01] MEDS: LISINOPRIL 10 MG TABLET PO SCH (08:47)
[2016-12-01] MEDS: CARVEDILOL 3.125 MG TABLET PO SCH (08:47)
[2016-12-01] MEDS: FUROSEMIDE 40 MG TABLET PO SCH (08:50)
[2016-12-01] MEDS: metOLazone 5 MG TABLET PO SCH (08:50)
[2016-12-01] MEDS: LEVOFLOXACIN 500 MG TABLET PO SCH (08:50)
[2016-12-01] MEDS: PHENYTOIN ER 100 MG CAPSULE PO SCH (08:50)
[2016-12-01] MEDS ORDERED: predniSONE 20 MG TABLET PO SCH (09:00)
--- NOTE | 2016-12-01 11:48 | Discharge Summary ---
Hospital Course - Hospital Course Hospital Course: Mr. Mora is a 61-year-old man with moderate to severe COPD and moderate to severe systolic congestive heart failure. The patient has paranoid personality traits which caused him to question those attempted to give him medical treatment. The patient was admitted to hospital with shortness of breath and weakness. The patient was treated for pneumonia and COPD exacerbation. The patient was treated for heart failure with diuresis. The patient's resting oxygenation improved and chest x-ray got better. The patient had some orthostasis once hypovolemia was eliminated. The patient's medications are reconciled and is ready for discharge home. On the date of discharge, chest is generally clear with reduced lung volumes and hyperexpansion. Heart has regular rate and rhythm. 34 minutes were required to prepare his discharge. The patient is a longtime smoker and received 5 minutes encouragement to not restart smoking once he arrives back home. - Time spent with patient Time with patient DS: Greater than 30 minutes Diagnosis - Discharge Diagnosis (1) Systolic CHF, acute on chronic Status: Chronic (2) COPD with acute bronchitis Status: Chronic Discharge Plan - Discharge Data Disposition: Disch To Home/Self Care Condition at Discharge: Stable Discharge Diet: heart healthy Activity: resume usual activities as tolerated - Discharge Medications New Furosemide Tab [Lasix Tab] 40 mg PO DAILY tablet predniSONE TAB [PredniSONE] 20 mg PO DAILY #7 tablet Continue Albuterol Inhaler [Proventil Inhaler] 2 puff INH Q4H PRN #1 inhaler PRN Reason: Shortness Of Breath/Wheezing Budesonide/Formoterol 160-4.5 [Symbicort 160-4.5] 2 puff INH BID #1 inhaler Carvedilol [Coreg] 3.125 mg PO BID #100 tablet Lisinopril 10 mg PO DAILY #60 tablet Phenytoin ER Cap [Dilantin Cap] 100 mg PO TID #90 capsule - Follow Up or Referral - Forms/Instructions Exam - Constitutional Vitals: Period Temp Pulse Resp BP Sys/Syed Pulse Ox Last 24 Hr 96.6 F-97.8 F 77-95 16-20 90-106/52-81 97-100 Discharge Results Labs on day of discharge: Labs from last 24 hours 11/30/16 11:28 POC Glucose 126 H DS: Provider Date of admission: 11/24/16 14:06 Primary care physician: . No PCP Attending physician on admission: Jesse Randolph DO Consults: 11/23/16 15:05 Consult to Dietitian [CONS] Routine Reason for Dietitian: Other Discharging clinician: Arcenio Cano MD
[2016-12-01 12:26] VITALS: BP 107/80
== END 2016-12-01 12:59 | disposition home or self-care (01) | DRG 291 ==
LOC: EDBD → EDUNIT# → N.ED 11:57 → N.EDINP 11:57 → SUATTDRO 13:30 → N.EDINP 14:23 → N.TELES 14:29 → SUATTDRO 11-24 14:06
PROVIDERS: ADMIT Phlebology; ATTEND Internal Medicine

== ENCOUNTER 2017-03-19 00:19 | Observation (INO) ==
[2017-03-19] MEDS ORDERED: ALBUTEROL/IPRATROPIUM 3 ML NEB RESP TX STA (01:45)
[2017-03-19] MEDS ORDERED: FUROSEMIDE 20 MG/2 ML VIAL IV STA (01:45)
[2017-03-19] MEDS ORDERED: FUROSEMIDE 20 MG/2 ML VIAL ONE (02:07)
[2017-03-19 02:36] LABS: INR 1.1; PT Patient Result 11.7 SECS
[2017-03-19 02:45] LABS: Alanine Aminotransferase 22 U/L (16-61); Albumin 3.6 G/DL (3.4-5.0); Alkaline Phosphatase 159 U/L (45-117); Aspartate Amino Transferase 18 U/L (0-37); Blood Urea Nitrogen 33 MG/DL (7-18); Calcium 9.2 MG/DL (8.5-10.1); Glucose 96 MG/DL (74-106); Osmolality,Calculated 287.3 MOS/KG (273-304); Potassium 4.6 MMOL/L (3.5-5.1); Sodium 141 MMOL/L (136-145); Troponin I Only 0.084 NG/ML (0.00-0.045)
[2017-03-19 02:49] LABS: Apearance,Urine CLEAR (Clear); Bacteria,Urine Occasional /HPF (Few); Bilirubin,Urine Negative (Negative); Blood, Urine Small mg/dL (Negative); Glucose,Urine (UA) Negative (Negative); Ketones,Urine Negative (Negative); Mucus,Urine Occasional /LPF (Occasional); Nitrite,Urine Negative (Negative); Protein,Urine 30 MG/DL; RBC,Urine <1 /HPF (0-4); Urine Color Yellow (Yellow); Urine Specific Gravity 1.009 (1.001-1.035); Urine Urobilinogen < 2.0 EU/DL (0.2-1.0); WBC,Urine <1 /HPF (0-6)
[2017-03-19 02:53] LABS: Basophils # 0.1 10*3/uL (0.0-0.2); Basophils % 1.2 % (0.0-0.8); Eosinophils % 0.5 % (0.00-10.9); Hemoglobin 14.2 GM/DL (14.0-18.0); Lymphocytes # 2.2 10*3/uL (1.4-4.0); Lymphocytes % 52.9 % (21.2-54.2); Mean Corpuscular HGB Conc 33.8 GM/DL (32-36); Mean Corpuscular Hemoglobin 32 PG (27-34); Mean Corpuscular Volume 93.3 FL (87-102); Mean Platelet Volume 10.8 FL (9.6-12.0); Monocytes # 0.3 10*3/uL (0.11-0.8); Monocytes % 6.3 % (1.7-12.7); Neutrophils # 1.6 10*3/uL (1.4-7.4); Neutrophils % 39.1 % (38.7-73.9); Platelet Count 253 T/CUMM (130-400); Red Cell Distribution Width 12.6 % (9.3-17.3); White Blood Count 4.1 T/CUMM (4-12)
[2017-03-19 02:59] LABS: Barbiturates Screen,Urine Negative (Negative); Benzodiazepines Screen,Urine Negative (Negative); Cannabinoid Screen,Urine Positive (Negative); Opiate Screen,Urine Negative (Negative); Phencyclidine Screen,Urine Negative (Negative)
[2017-03-19] MEDS ORDERED: hydrALAZINE 20 MG/1 ML VIAL IV STA ×2 (03:15→05:10)
[2017-03-19] MEDS ORDERED: hydrALAZINE 20 MG/1 ML VIAL ONE (03:17)
[2017-03-19] MEDS ORDERED: ONDANSETRON 4 MG/2 ML VIAL IV PRN (05:08)
[2017-03-19] MEDS: methylPREDNISolone SOD SUC 40 MG/1 ML VIAL IV SCH ×2 (06:31→18:16)
[2017-03-19] MEDS: ALBUTEROL/IPRATROPIUM 3 ML NEB RESP TX SCH ×3 (06:51→19:35)
[2017-03-19] MEDS: ENOXAPARIN 40 MG/0.4 ML SYRINGE SUBCUT SCH (09:24)
[2017-03-19] MEDS: FUROSEMIDE 20 MG/2 ML VIAL IV SCH ×2 (09:25→15:42)
[2017-03-19] MEDS: LISINOPRIL 10 MG TABLET PO SCH (09:26)
[2017-03-19] MEDS: PHENYTOIN ER 100 MG CAPSULE PO SCH ×3 (09:26→20:24)
[2017-03-19] MEDS: CARVEDILOL 3.125 MG TABLET PO SCH ×2 (09:26→18:16)
[2017-03-19] MEDS: POTASSIUM CHLORIDE 20 MEQ TABLET PO SCH (09:26)
[2017-03-19] MEDS: LEVOFLOXACIN INJ 500 MG in PREMIX 1 EACH IV SCH (13:34)
[2017-03-20] MEDS: ALBUTEROL/IPRATROPIUM 3 ML NEB RESP TX SCH ×4 (01:24→19:32)
[2017-03-20] MEDS: methylPREDNISolone SOD SUC 40 MG/1 ML VIAL IV SCH ×2 (05:51→22:03)
[2017-03-20 06:14] LABS: Basophils % 0.2 % (0.0-0.8); Hematocrit 41.4 VOL% (42.0-52.0); Hemoglobin 14.2 GM/DL (14.0-18.0); Immature Granulocytes % 0.2 %; Immature Granulocytes Absolute 0.01 #; Lymphocytes # 1.2 10*3/uL (1.4-4.0); Lymphocytes % 24.5 % (21.2-54.2); Mean Corpuscular HGB Conc 34.3 GM/DL (32-36); Mean Corpuscular Hemoglobin 31 PG (27-34); Mean Platelet Volume 10.8 FL (9.6-12.0); Monocytes # 0.2 10*3/uL (0.11-0.8); Monocytes % 3.6 % (1.7-12.7); Neutrophils # 3.4 10*3/uL (1.4-7.4); Neutrophils % 71.5 % (38.7-73.9); Platelet Count 260 T/CUMM (130-400); Red Blood Count 4.55 MC/CUMM (3.8-5.5); Red Cell Distribution Width 12.3 % (9.3-17.3); White Blood Count 4.8 T/CUMM (4-12)
[2017-03-20 06:42] LABS: Calcium 8.9 MG/DL (8.5-10.1); Magnesium 1.7 MG/DL (1.8-2.4); Osmolality,Calculated 281.7 MOS/KG (273-304); Potassium 4.4 MMOL/L (3.5-5.1)
[2017-03-20] MEDS: CARVEDILOL 3.125 MG TABLET PO SCH ×2 (07:49→16:28)
[2017-03-20] MEDS: FUROSEMIDE 20 MG/2 ML VIAL IV SCH ×2 (07:49→15:51)
[2017-03-20] MEDS: ENOXAPARIN 40 MG/0.4 ML SYRINGE SUBCUT SCH (07:59)
[2017-03-20] MEDS: LEVOFLOXACIN INJ 500 MG in PREMIX 1 EACH IV SCH (08:00)
[2017-03-20] MEDS: PHENYTOIN ER 100 MG CAPSULE PO SCH ×3 (08:01→20:55)
[2017-03-20] MEDS: LISINOPRIL 10 MG TABLET PO SCH (08:01)
[2017-03-20] MEDS: POTASSIUM CHLORIDE 20 MEQ TABLET PO SCH (08:02)
[2017-03-21] MEDS: ALBUTEROL/IPRATROPIUM 3 ML NEB RESP TX SCH ×3 (00:43→12:55)
[2017-03-21] MEDS: CARVEDILOL 3.125 MG TABLET PO SCH (09:52)
[2017-03-21] MEDS: FUROSEMIDE 20 MG/2 ML VIAL IV SCH ×2 (09:53→16:20)
[2017-03-21] MEDS: LISINOPRIL 10 MG TABLET PO SCH (10:21)
[2017-03-21] MEDS: PHENYTOIN ER 100 MG CAPSULE PO SCH ×2 (10:22→15:40)
[2017-03-21] MEDS: POTASSIUM CHLORIDE 20 MEQ TABLET PO SCH (10:22)
[2017-03-21] MEDS: ENOXAPARIN 40 MG/0.4 ML SYRINGE SUBCUT SCH (10:22)
[2017-03-21] MEDS: LEVOFLOXACIN INJ 500 MG in PREMIX 1 EACH IV SCH (10:23)
[2017-03-21] MEDS: methylPREDNISolone SOD SUC 40 MG/1 ML VIAL IV SCH (10:27)
[2017-03-21 13:49] VITALS: BP 139/94
== END 2017-03-21 16:18 | disposition home or self-care (01) ==
LOC: N.EDINP 00:19 → N.ED 00:19 → N.2E 05:28
PROVIDERS: ADMIT Hospitalist; ATTEND Hospitalist

== ENCOUNTER 2017-05-13 14:20 | Observation (INO) ==
[2017-05-13 15:37] LABS: Basophils % 0.8 % (0.0-0.8); Eosinophils % 0.2 % (0.00-10.9); Hemoglobin 12.4 GM/DL (14.0-18.0); Immature Granulocytes % 0.2 %; Immature Granulocytes Absolute 0.01 #; Lymphocytes # 1.8 10*3/uL (1.4-4.0); Lymphocytes % 37.7 % (21.2-54.2); Mean Corpuscular HGB Conc 32.6 GM/DL (32-36); Mean Corpuscular Hemoglobin 31 PG (27-34); Mean Corpuscular Volume 94.1 FL (87-102); Mean Platelet Volume 9.8 FL (9.6-12.0); Monocytes # 0.4 10*3/uL (0.11-0.8); Monocytes % 7.4 % (1.7-12.7); NRBC # 0.04 10*3/uL; Neutrophils # 2.6 10*3/uL (1.4-7.4); Neutrophils % 53.7 % (38.7-73.9); Platelet Count 253 T/CUMM (130-400); Red Blood Count 4.04 MC/CUMM (3.8-5.5); Red Cell Distribution Width 14.3 % (9.3-17.3); White Blood Count 4.9 T/CUMM (4-12)
[2017-05-13 15:50] LABS: INR 1.1; PT Patient Result 11.8 SECS; Partial Thromboplastin Time 25.3 SECS (0-40)
[2017-05-13 15:55] LABS: Albumin 3.5 G/DL (3.4-5.0); Calcium 8.8 MG/DL (8.5-10.1); Osmolality,Calculated 282.4 MOS/KG (273-304); Potassium 4.6 MMOL/L (3.5-5.1); Total Protein 6.4 G/DL (6.4-8.3)
[2017-05-13 16:05] LABS: Magnesium 1.8 MG/DL (1.8-2.4)
[2017-05-13 16:06] LABS: Troponin I Only 0.067 NG/ML (0.00-0.045)
[2017-05-13] MEDS ORDERED: FUROSEMIDE 40 MG/4 ML VIAL IV STA (16:22)
[2017-05-13] MEDS ORDERED: FUROSEMIDE 100 MG/10 ML VIAL ONE (16:27)
[2017-05-13] MEDS ORDERED: ONDANSETRON 4 MG/2 ML VIAL IV PRN (17:10)
[2017-05-13] MEDS ORDERED: NICOTINE 21 MG/24 HR PATCH TRANSDERM PRN (17:10)
[2017-05-13] MEDS ORDERED: ACETAMINOPHEN 325 MG TABLET PO PRN (17:10)
[2017-05-13] MEDS ORDERED: ALBUTEROL 2.5 MG/3 ML NEB RESP TX SCH (17:11)
[2017-05-13] MEDS ORDERED: ENALAPRIL 2.5 MG/2 ML VIAL IV STA (17:13)
[2017-05-13] MEDS ORDERED: ENALAPRIL 2.5 MG/2 ML VIAL IV ONE (17:23)
[2017-05-13 17:25] LABS: Apearance,Urine CLEAR (Clear); Bilirubin,Urine Negative (Negative); Blood, Urine Negative (Negative); Glucose,Urine (UA) Negative (Negative); Hyaline Casts,Urine 4 /LPF (0-3); Ketones,Urine Negative (Negative); Mucus,Urine Occasional /LPF (Occasional); Nitrite,Urine Negative (Negative); Protein,Urine 30 MG/DL; RBC,Urine <1 /HPF (0-4); Squamous Epithelial Cell,Urine Occasional /HPF (0-10); Urine Color Straw (Yellow); Urine Specific Gravity 1.005 (1.001-1.035); Urine Urobilinogen < 2.0 EU/DL (0.2-1.0)
[2017-05-13 17:49] LABS: Barbiturates Screen,Urine Negative (Negative); Benzodiazepines Screen,Urine Negative (Negative); Cannabinoid Screen,Urine Positive (Negative); Opiate Screen,Urine Negative (Negative); Phencyclidine Screen,Urine Negative (Negative)
[2017-05-13] MEDS ORDERED: ALBUTEROL 2.5 MG/3 ML NEB RESP TX PRN (18:30)
[2017-05-13] MEDS: NITROGLYCERIN 2% OINT 1 INCH/GM PACK TOP SCH ×2 (18:38→23:48)
[2017-05-13] MEDS ORDERED: NITROGLYCERIN 2% OINT 1 INCH/GM PACK TOP ONE (18:39)
[2017-05-13] MEDS ORDERED: hydrALAZINE 20 MG/1 ML VIAL IV PRN (18:41)
[2017-05-13] MEDS ORDERED: Phenytoin Sodium Extended [Dilantin] 30 MG PO SCH (21:00)
[2017-05-13] MEDS: ENOXAPARIN 40 MG/0.4 ML SYRINGE SUBCUT SCH (23:26)
[2017-05-13] MEDS: MAGNESIUM OXIDE 400 MG TABLET PO SCH (23:26)
[2017-05-13] MEDS: FUROSEMIDE 40 MG/4 ML VIAL IV SCH (23:26)
[2017-05-13] MEDS: CARVEDILOL 3.125 MG TABLET PO SCH (23:26)
[2017-05-14] MEDS: FUROSEMIDE 40 MG/4 ML VIAL IV SCH (04:51)
[2017-05-14] MEDS: NITROGLYCERIN 2% OINT 1 INCH/GM PACK TOP SCH (05:57)
[2017-05-14 06:35] LABS: Calcium 8.5 MG/DL (8.5-10.1); Osmolality,Calculated 285.1 MOS/KG (273-304); Potassium 3.9 MMOL/L (3.5-5.1)
[2017-05-14] MEDS ORDERED: FUROSEMIDE 40 MG/4 ML VIAL IV SCH (08:00)
[2017-05-14] MEDS: MAGNESIUM OXIDE 400 MG TABLET PO SCH ×2 (09:26→21:36)
[2017-05-14] MEDS: MULTIVITAMIN (BEROCCA) TABLET PO SCH (09:26)
[2017-05-14] MEDS: CARVEDILOL 3.125 MG TABLET PO SCH ×2 (09:26→16:58)
[2017-05-14] MEDS: SPIRONOLACTONE 25 MG TABLET PO SCH (09:26)
[2017-05-14] MEDS: POTASSIUM CHLORIDE 20 MEQ TABLET PO SCH (09:26)
[2017-05-14] MEDS: ASPIRIN 325 MG TABLET PO SCH (09:26)
[2017-05-14] MEDS: LISINOPRIL 10 MG TABLET PO SCH (09:27)
[2017-05-14] MEDS: PANTOPRAZOLE 40 MG TABLET PO SCH (09:27)
[2017-05-14] MEDS: predniSONE 10 MG TABLET PO SCH (09:27)
[2017-05-14] MEDS ORDERED: LISINOPRIL 10 MG TABLET PO ONE (19:30)
[2017-05-14] MEDS: ENOXAPARIN 40 MG/0.4 ML SYRINGE SUBCUT SCH (21:36)
[2017-05-15] MEDS: predniSONE 10 MG TABLET PO SCH (08:56)
[2017-05-15] MEDS: POTASSIUM CHLORIDE 20 MEQ TABLET PO SCH (08:57)
[2017-05-15] MEDS: SPIRONOLACTONE 25 MG TABLET PO SCH (08:57)
[2017-05-15] MEDS: MULTIVITAMIN (BEROCCA) TABLET PO SCH (08:57)
[2017-05-15] MEDS: CARVEDILOL 3.125 MG TABLET PO SCH (08:57)
[2017-05-15] MEDS: MAGNESIUM OXIDE 400 MG TABLET PO SCH (08:58)
[2017-05-15] MEDS: PANTOPRAZOLE 40 MG TABLET PO SCH (08:58)
[2017-05-15 09:21] VITALS: BP 122/84
[2017-05-15] MEDS: ASPIRIN 325 MG TABLET PO SCH (11:37)
[2017-05-15] MEDS: LISINOPRIL 10 MG TABLET PO SCH (11:37)
== END 2017-05-15 13:00 | disposition home or self-care (01) ==
LOC: EDBD → EDUNIT# → N.EDINP 14:20 → N.ED 14:20 → N.TELES 18:16
PROVIDERS: ADMIT Hospitalist; ATTEND Hospitalist

== ENCOUNTER 2017-05-17 07:55 | Inpatient (IN) ==
[2017-05-17] MEDS ORDERED: NITROGLYCERIN 2% OINT 1 INCH/GM PACK TOP STA (09:02)
[2017-05-17] MEDS ORDERED: FUROSEMIDE 100 MG/10 ML VIAL IV STA (09:02)
[2017-05-17] MEDS ORDERED: NITROGLYCERIN 2% OINT 1 INCH/GM PACK TOP ONE (09:18)
[2017-05-17] MEDS ORDERED: FUROSEMIDE 100 MG/10 ML VIAL ONE (09:19)
[2017-05-17 09:42] LABS: Basophils % 0.5 % (0.0-0.8); Eosinophils % 0.3 % (0.00-10.9); Hematocrit 36.5 VOL% (42.0-52.0); Hemoglobin 11.9 GM/DL (14.0-18.0); Immature Granulocytes % 0.8 %; Immature Granulocytes Absolute 0.06 #; Lymphocytes # 1.2 10*3/uL (1.4-4.0); Lymphocytes % 15.4 % (21.2-54.2); Mean Corpuscular HGB Conc 32.6 GM/DL (32-36); Mean Corpuscular Hemoglobin 31 PG (27-34); Mean Corpuscular Volume 95.3 FL (87-102); Monocytes # 0.9 10*3/uL (0.11-0.8); Monocytes % 11.4 % (1.7-12.7); Neutrophils # 5.7 10*3/uL (1.4-7.4); Neutrophils % 71.6 % (38.7-73.9); Platelet Count 266 T/CUMM (130-400); Red Blood Count 3.83 MC/CUMM (3.8-5.5); Red Cell Distribution Width 14.7 % (9.3-17.3)
[2017-05-17] MEDS ORDERED: ALBUTEROL 2.5 MG/3 ML NEB RESP TX PRN (10:05)
[2017-05-17 10:18] LABS: Albumin 3.2 G/DL (3.4-5.0); Calcium 8.3 MG/DL (8.5-10.1); Osmolality,Calculated 281.5 MOS/KG (273-304); Potassium 4.1 MMOL/L (3.5-5.1); Total Protein 6.3 G/DL (6.4-8.3); Troponin I Only 0.037 NG/ML (0.00-0.045)
[2017-05-17 11:33] LABS: Apearance,Urine CLEAR (Clear); Bilirubin,Urine Negative (Negative); Blood, Urine Negative (Negative); Glucose,Urine (UA) Negative (Negative); Ketones,Urine Negative (Negative); Nitrite,Urine Negative (Negative); Protein,Urine Negative; Urine Color Colorless (Yellow); Urine Specific Gravity 1.003 (1.001-1.035); Urine Urobilinogen < 2.0 EU/DL (0.2-1.0); WBC,Urine <1 /HPF (0-6)
[2017-05-17 11:53] LABS: Barbiturates Screen,Urine Negative (Negative); Benzodiazepines Screen,Urine Negative (Negative); Cannabinoid Screen,Urine Positive (Negative); Opiate Screen,Urine Negative (Negative); Phencyclidine Screen,Urine Negative (Negative)
[2017-05-17] MEDS ORDERED: PHENYTOIN SODIUM 30 MG PO SCH (15:00)
[2017-05-17] MEDS ORDERED: FUROSEMIDE 40 MG/4 ML VIAL IV SCH (16:00)
[2017-05-17] MEDS: PHENYTOIN ER 100 MG CAPSULE PO SCH ×2 (16:04→20:24)
[2017-05-17] MEDS: FUROSEMIDE 40 MG/4 ML VIAL IV SCH (16:05)
[2017-05-17] MEDS: DILTIAZEM 30 MG TABLET PO SCH (20:25)
[2017-05-17] MEDS: MAGNESIUM OXIDE 400 MG TABLET PO SCH (20:25)
[2017-05-17] MEDS ORDERED: CARVEDILOL 3.125 MG TABLET PO SCH (21:00)
[2017-05-18] MEDS: ONDANSETRON 4 MG/2 ML VIAL IV PRN ×2 (00:39→13:01)
[2017-05-18 05:24] LABS: Albumin 3.6 G/DL (3.4-5.0); Calcium 9.2 MG/DL (8.5-10.1); Total Protein 6.6 G/DL (6.4-8.3)
[2017-05-18 05:25] LABS: Magnesium 2.4 MG/DL (1.8-2.4); Osmolality,Calculated 278.1 MOS/KG (273-304); Potassium 4.4 MMOL/L (3.5-5.1)
[2017-05-18] MEDS: FUROSEMIDE 40 MG/4 ML VIAL IV SCH ×2 (08:21→21:44)
[2017-05-18] MEDS ORDERED: FUROSEMIDE 40 MG TABLET PO SCH (09:00)
[2017-05-18] MEDS: PHENYTOIN ER 100 MG CAPSULE PO SCH ×3 (09:02→21:47)
[2017-05-18] MEDS: LISINOPRIL 10 MG TABLET PO SCH (09:03)
[2017-05-18] MEDS: DILTIAZEM 30 MG TABLET PO SCH ×3 (09:03→16:02)
[2017-05-18] MEDS: ASPIRIN 325 MG TABLET PO SCH (09:06)
[2017-05-18] MEDS ORDERED: ALUM/MAG/SIMETH/LIDO VISC 1:1 30 ML BOTTLE PO ONE (10:15)
[2017-05-18] MEDS: MAGNESIUM OXIDE 400 MG TABLET PO SCH ×2 (11:43→21:47)
[2017-05-18] MEDS: POTASSIUM CHLORIDE 20 MEQ TABLET PO SCH (11:44)
[2017-05-18] MEDS: SPIRONOLACTONE 25 MG TABLET PO SCH (11:44)
[2017-05-18] MEDS ORDERED: HYDROmorphone 2 MG/1 ML VIAL IV PRN (12:02)
[2017-05-18] MEDS: FAMOTIDINE 20 MG/2 ML VIAL IV SCH ×2 (15:37→23:55)
[2017-05-18] MEDS: hydrALAZINE 10 MG TABLET PO SCH (21:46)
[2017-05-18] MEDS: CARVEDILOL 3.125 MG TABLET PO SCH (21:47)
[2017-05-19 05:19] LABS: Calcium 9.4 MG/DL (8.5-10.1); Magnesium 2.5 MG/DL (1.8-2.4); Osmolality,Calculated 279.8 MOS/KG (273-304); Potassium 5.2 MMOL/L (3.5-5.1)
[2017-05-19] MEDS ORDERED: FUROSEMIDE 40 MG/4 ML VIAL IV SCH (09:00)
[2017-05-19] MEDS ORDERED: ISOSORBIDE MONONITRATE 30 MG TABLET PO SCH (09:00)
[2017-05-19] MEDS: PHENYTOIN ER 100 MG CAPSULE PO SCH ×3 (10:02→20:00)
[2017-05-19] MEDS: ASPIRIN 325 MG TABLET PO SCH (10:02)
[2017-05-19] MEDS: LISINOPRIL 10 MG TABLET PO SCH (10:03)
[2017-05-19] MEDS: CARVEDILOL 3.125 MG TABLET PO SCH (10:03)
[2017-05-19] MEDS: SPIRONOLACTONE 25 MG TABLET PO SCH (10:07)
[2017-05-19] MEDS: POTASSIUM CHLORIDE 20 MEQ TABLET PO SCH (10:08)
[2017-05-19] MEDS: hydrALAZINE 10 MG TABLET PO SCH (10:08)
[2017-05-19] MEDS: POLYETHYLENE GLYCOL POWDER 17 GM PACK PO SCH (10:09)
[2017-05-19] MEDS: MAGNESIUM OXIDE 400 MG TABLET PO SCH ×2 (10:09→20:00)
[2017-05-19] MEDS: FUROSEMIDE 40 MG/4 ML VIAL IV SCH (10:09)
[2017-05-19] MEDS: FAMOTIDINE 20 MG/2 ML VIAL IV SCH (13:08)
[2017-05-19] MEDS ORDERED: DOBUTamine 500 MG/250 ML PREMIX IV SCH (14:00)
[2017-05-19] MEDS ORDERED: LISINOPRIL 5 MG TABLET PO SCH (14:12)
[2017-05-19] MEDS ORDERED: FUROSEMIDE 40 MG TABLET PO SCH (16:00)
[2017-05-19] MEDS ORDERED: hydrALAZINE 10 MG TABLET PO SCH (21:00)
[2017-05-20] MEDS: FAMOTIDINE 20 MG/2 ML VIAL IV SCH ×2 (02:42→13:33)
[2017-05-20 03:20] LABS: Basophils # 0.1 10*3/uL (0.0-0.2); Eosinophils % 0.5 % (0.00-10.9); Hematocrit 45.4 VOL% (42.0-52.0); Hemoglobin 14.8 GM/DL (14.0-18.0); Immature Granulocytes % 0.3 %; Immature Granulocytes Absolute 0.02 #; Lymphocytes # 2.5 10*3/uL (1.4-4.0); Lymphocytes % 33.5 % (21.2-54.2); Mean Corpuscular HGB Conc 32.6 GM/DL (32-36); Mean Corpuscular Hemoglobin 31 PG (27-34); Mean Corpuscular Volume 95.4 FL (87-102); Mean Platelet Volume 10.3 FL (9.6-12.0); Monocytes # 0.8 10*3/uL (0.11-0.8); Monocytes % 10.4 % (1.7-12.7); Neutrophils % 54.3 % (38.7-73.9); Platelet Count 432 T/CUMM (130-400); Red Blood Count 4.76 MC/CUMM (3.8-5.5); Red Cell Distribution Width 14.6 % (9.3-17.3); White Blood Count 7.3 T/CUMM (4-12)
[2017-05-20 03:49] LABS: Calcium 8.7 MG/DL (8.5-10.1); Magnesium 2.4 MG/DL (1.8-2.4); Osmolality,Calculated 274.2 MOS/KG (273-304); Potassium 5.5 MMOL/L (3.5-5.1)
[2017-05-20] MEDS: PHENYTOIN ER 100 MG CAPSULE PO SCH ×3 (13:02→20:47)
[2017-05-20] MEDS: POTASSIUM CHLORIDE 20 MEQ TABLET PO SCH (13:02)
[2017-05-20] MEDS: POLYETHYLENE GLYCOL POWDER 17 GM PACK PO SCH (13:03)
[2017-05-20] MEDS: SPIRONOLACTONE 25 MG TABLET PO SCH (13:03)
[2017-05-20] MEDS: MAGNESIUM OXIDE 400 MG TABLET PO SCH ×2 (13:03→20:50)
[2017-05-20] MEDS ORDERED: DIGOXIN 0.25 MG TABLET PO ONE ×2 (13:16→22:00)
[2017-05-20] MEDS: ASPIRIN 325 MG TABLET PO SCH (13:33)
[2017-05-21] MEDS: FAMOTIDINE 20 MG/2 ML VIAL IV SCH (00:28)
[2017-05-21 04:59] LABS: Basophils # 0.1 10*3/uL (0.0-0.2); Basophils % 1.1 % (0.0-0.8); Eosinophils % 0.8 % (0.00-10.9); Hematocrit 47.1 VOL% (42.0-52.0); Hemoglobin 15.5 GM/DL (14.0-18.0); Immature Granulocytes % 0.2 %; Immature Granulocytes Absolute 0.01 #; Lymphocytes # 2.4 10*3/uL (1.4-4.0); Lymphocytes % 46.3 % (21.2-54.2); Mean Corpuscular HGB Conc 32.9 GM/DL (32-36); Mean Corpuscular Hemoglobin 31 PG (27-34); Mean Corpuscular Volume 93.6 FL (87-102); Mean Platelet Volume 10.2 FL (9.6-12.0); Monocytes # 0.6 10*3/uL (0.11-0.8); Monocytes % 10.9 % (1.7-12.7); Neutrophils # 2.1 10*3/uL (1.4-7.4); Neutrophils % 40.7 % (38.7-73.9); Platelet Count 449 T/CUMM (130-400); Red Blood Count 5.03 MC/CUMM (3.8-5.5); Red Cell Distribution Width 14.7 % (9.3-17.3); White Blood Count 5.3 T/CUMM (4-12)
[2017-05-21 05:41] LABS: Albumin 3.3 G/DL (3.4-5.0); Bilirubin,Total 1.5 MG/DL (0.2-1.0); Calcium 9.3 MG/DL (8.5-10.1); Magnesium 2.4 MG/DL (1.8-2.4); Osmolality,Calculated 276.1 MOS/KG (273-304); Potassium 5.7 MMOL/L (3.5-5.1); Total Protein 6.6 G/DL (6.4-8.3)
[2017-05-21] MEDS: ASPIRIN 325 MG TABLET PO SCH (09:10)
[2017-05-21] MEDS: PHENYTOIN ER 100 MG CAPSULE PO SCH ×3 (09:10→20:59)
[2017-05-21] MEDS: MAGNESIUM OXIDE 400 MG TABLET PO SCH ×2 (09:12→20:59)
[2017-05-21] MEDS: POLYETHYLENE GLYCOL POWDER 17 GM PACK PO SCH (09:13)
[2017-05-21] MEDS: DIGOXIN 0.125 MG TABLET PO SCH ×2 (13:45→16:20)
[2017-05-21] MEDS: FAMOTIDINE 20 MG TABLET PO SCH ×3 (13:45→20:59)
[2017-05-22 02:27] LABS: Basophils # 0.1 10*3/uL (0.0-0.2); Basophils % 1.1 % (0.0-0.8); Eosinophils % 0.9 % (0.00-10.9); Hematocrit 45.8 VOL% (42.0-52.0); Hemoglobin 15.1 GM/DL (14.0-18.0); Lymphocytes # 2.5 10*3/uL (1.4-4.0); Lymphocytes % 54.7 % (21.2-54.2); Mean Corpuscular Hemoglobin 31 PG (27-34); Mean Corpuscular Volume 93.9 FL (87-102); Monocytes # 0.4 10*3/uL (0.11-0.8); Monocytes % 9.5 % (1.7-12.7); Neutrophils # 1.6 10*3/uL (1.4-7.4); Neutrophils % 33.8 % (38.7-73.9); Platelet Count 494 T/CUMM (130-400); Red Blood Count 4.88 MC/CUMM (3.8-5.5); Red Cell Distribution Width 14.5 % (9.3-17.3); White Blood Count 4.6 T/CUMM (4-12)
[2017-05-22 03:02] LABS: Calcium 9.1 MG/DL (8.5-10.1); Magnesium 2.3 MG/DL (1.8-2.4); Osmolality,Calculated 276.2 MOS/KG (273-304); Potassium 5.7 MMOL/L (3.5-5.1)
[2017-05-22 06:14] LABS: Eosinophils 1 % (0-10); Hypochromasia Slight; Lymphocytes 60 % (20-55); Microcytosis Slight; Segmented Neutrophils 32 % (50-85); Total Cells Counted 100
[2017-05-22 06:15] LABS: Atypical Lymphocytes Few; Platelet Estimate Increased
[2017-05-22] MEDS ORDERED: SODIUM POLYSTYRENE SULFATE 15 GM/60 ML BOTTLE PO ONE (08:37)
[2017-05-22] MEDS: ASPIRIN 325 MG TABLET PO SCH (09:20)
[2017-05-22] MEDS: PHENYTOIN ER 100 MG CAPSULE PO SCH ×3 (09:21→21:04)
[2017-05-22] MEDS: MAGNESIUM OXIDE 400 MG TABLET PO SCH ×2 (09:21→21:04)
[2017-05-22] MEDS: FAMOTIDINE 20 MG TABLET PO SCH ×2 (09:21→21:04)
[2017-05-22] MEDS: POLYETHYLENE GLYCOL POWDER 17 GM PACK PO SCH (11:01)
[2017-05-22] MEDS: DIGOXIN 0.125 MG TABLET PO SCH (12:34)
[2017-05-23 08:05] VITALS: BP 116/80
[2017-05-23] MEDS: PHENYTOIN ER 100 MG CAPSULE PO SCH (09:24)
[2017-05-23] MEDS: MAGNESIUM OXIDE 400 MG TABLET PO SCH (09:25)
[2017-05-23] MEDS: FAMOTIDINE 20 MG TABLET PO SCH (09:25)
[2017-05-23] MEDS: ASPIRIN 325 MG TABLET PO SCH (09:25)
[2017-05-23 10:18] LABS: Calcium 9.2 MG/DL (8.5-10.1); Magnesium 2.1 MG/DL (1.8-2.4); Osmolality,Calculated 283.5 MOS/KG (273-304); Potassium 4.5 MMOL/L (3.5-5.1)
== END 2017-05-23 10:40 | disposition home or self-care (01) | DRG 100 ==
LOC: EDBD → EDUNIT# → N.ED 07:55 → N.EDINP 09:28 → SUATTDRO 09:28 → N.EDINP 11:12 → N.TELES 11:49 → N.ICU 05-19 17:27 → N.TELES 05-20 11:29
PROVIDERS: ADMIT Internal Medicine; ATTEND Internal Medicine